=== PATIENT | female | born 1950 | race Caucasian/White ===

== ENCOUNTER 2018-09-27 10:45 | Inpatient (IN) ==
[2018-09-27] MEDS ORDERED: IPRATROPIUM/ALBUTEROL 3 ML AMPUL.NEB NEB ONE (11:07)
[2018-09-27] MEDS: 0.9 % SODIUM CHLORIDE 1,000 ML IV SCH ×3 (11:17→18:59)
[2018-09-27 11:35] LABS: Mean Cell Volume 82.3 fL (80.0-100.0); Mean Corpuscular HGB Conc 30.9 g/dL (31.0-36.0); Platelet Count 241 K/mcL (140-440); Red Cell Distribution Width 17.8 % (11.5-14.5)
--- NOTE | 2018-09-27 11:47 | XRay Report ---
CLINICAL INFORMATION: Hypoxia COMPARISON: 07/09/2018 and 08/18/2012 two view chest FINDINGS: Mild cardiomegaly is unchanged. Mediastinum and pulmonary vessels are normal. A small right lower lobe infiltrate has developed - best seen on lateral view. No definite effusion IMPRESSION: Small right lower lobe infiltrate. Interpreted and Authenticated by: Johnnie Bermudez 09/27/18
[2018-09-27 11:49] LABS: ALT/SGPT 16 U/l (0-40); Albumin 3.2 gm/dL (3.2-5.2); Alkaline Phosphatase 66 U/L (39-117); Blood Urea Nitrogen 26 mg/dl (8-23)
[2018-09-27 12:10] LABS: Anisocytosis 1+ (NONE SEEN); Eosinophils % (Manual) 2 % (0-7); Hypochromasia 1+ (NONE SEEN); Lymphocytes % 28 % (15-49); Monocytes % (Manual) 9 % (1-12); Platelet Estimate NORMAL (NORMAL); RBC Morphology ABNORM (NORMAL); Segmented Neutrophils % 61 % (38-78)
[2018-09-27] MEDS ORDERED: LEVOFLOXACIN 500 MG/100 ML BAG IV ONE (12:12)
--- NOTE | 2018-09-27 12:24 | Emergency Department Note ---
SOB HPI - General Chief Complaint: Shortness of Breath/Dyspnea Stated Complaint: fever, low O2 sats Time Seen by Provider: 09/27/18 10:48 Source: patient, EMS Mode of arrival: EMS Limitations: no limitations - History of Present Illness 68-year-old female presents with shortness of breath, cough, fever, chills since Wednesday night. She is currently residing at [facility] doing rehab after an ankle fracture. The influenza they did there this morning was negative. She became much more short of breath this morning and had oxygen saturations of 69% on room air on EMS arrival. No ear pain or sore throat. No nausea, vomiting, or diarrhea. States it started with a cough and progressed to shortness of breath. - Related Data Home Medications Medication Instructions Recorded Confirmed allopurinol 300 mg tablet 300 mg PO QDAY 03/29/18 07/09/18 blood sugar diagnostic strips See Dose Instructions .ROUTE 03/29/18 03/29/18 .MEDSUPPLY #20 each blood-glucose meter See Dose Instructions .ROUTE 03/29/18 03/29/18 .MEDSUPPLY #1 each albuterol 90 mcg/actuation aerosol 90 mcg INHALATION QDAY PRN 05/09/18 07/09/18 inhaler cholecalciferol (vitamin D3) 1,000 See Rx Instructions .ROUTE .COMPLEX 05/09/18 07/09/18 unit capsule Ergocalciferol (Vitamin D2) 50,000 unit PO WEEKLY 07/09/18 07/09/18 [Vitamin D2] Fosinopril Sodium 20 mg PO DAILY 07/09/18 07/09/18 HYDROcodone/APAP 10/325MG [[place] 1 tab PO Q6H PRN 07/09/18 07/09/18 10-325Mg] Insulin Glargine, Human [Lantus] 20 unit SQ HS 07/09/18 07/09/18 Insulin, 75/25 NPL/Lispro [Humalog 35 unit SQ DAILY 07/09/18 07/09/18 75/25] Insulin, 75/25 NPL/Lispro [Humalog 55 unit SQ DAILY 07/09/18 07/09/18 75/25] Levothyroxine [Synthroid] 100 mcg PO DAILY 07/09/18 07/09/18 Lisinopril [Zestril] 10 mg PO DAILY 07/09/18 07/09/18 Methocarbamol [Robaxin] 500 mg PO Q8 PRN 07/09/18 07/09/18 Mycophenolate Mofetil [Cellcept] 500 mg PO TID 07/09/18 07/09/18 [place]-3/Dha/Epa/Fish Oil [Fish Oil 1 cap PO BID 07/09/18 07/09/18 1,000 mg Softgel] Ondansetron [Zofran ODT] 4 mg SL Q4HP PRN 07/09/18 07/09/18 Polyethylene Glycol 3350 [Miralax] 17 gm PO HS 07/09/18 07/09/18 Warfarin [Coumadin] 3 mg PO DAILY 07/09/18 07/09/18 cycloSPORINE, MODIFIED 75 mg PO Q12 07/09/18 07/09/18 [Cyclosporine Modified] predniSONE [Prednisone] 5 mg PO DAILY 07/09/18 07/09/18 calcium carbonate 500 mg (1,250 1 tab PO BID 09/13/18 09/13/18 mg)-vitamin D3 200 unit tablet multivitamin tablet 1 tab PO QDAY 09/13/18 09/13/18 sennosides 8.6 mg tablet 8.6 mg PO BID 09/13/18 09/13/18 Previous Rx's Medication Instructions Recorded Cephalexin [Keflex] 500 mg PO QID #20 cap 07/09/18 Metoprolol Tartrate [Lopressor] 25 mg PO BID #60 tab 07/09/18 Allergies Allergy/AdvReac Type Severity Reaction Status Date / Time morphine Allergy Unknown Rash Verified 09/27/18 10:49 walnut Allergy Anaphylaxis Verified 09/27/18 10:49 Review of Systems All systems ED: reviewed and negative except as stated. Past Medical History - Past Medical History [facility] Narrative: Medical History (Last Updated 09/13/18 @ 13:59 by Felecia Ford) History of echocardiogram (Chronic) HCC (hepatocellular carcinoma) (Chronic) Morbid (severe) obesity due to excess calories (Chronic) Type 2 diabetes mellitus without complications (Chronic) Closed displaced supracondylar fracture with intracondylar extension of lower end of femur with routine healing (Chronic) End stage renal disease (Chronic) Hypertension, essential (Chronic) Closed displaced trimalleolar fracture of right lower leg with routine healing (Chronic) Hematuria (Chronic) History of shingles (Chronic) Blind (Chronic) Obstructive sleep apnea (Chronic) Right hip pain (Chronic) Venous insufficiency (Chronic) Non-pressure chronic ulcer left lower leg, limited to breakdown skin (Chronic) Lymphedema (Chronic) 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) Mixed hyperlipidemia (Chronic) Hypothyroidism (Chronic) Skin cancer (Chronic) Allergic rhinitis (Chronic) Osteoarthritis (Chronic) Gout (Chronic) Herpes zoster (Chronic) Hypercholesterolemia (Chronic) Hypertension (Chronic) Obesity (Chronic) Hidradenitis suppurativa (Resolved) Past Surgical History (Last Updated 09/13/18 @ 13:50 by Felecia Ford) Status post clamping of cerebral aneurysm (Acute) H/O sigmoidoscopy (Chronic 06/12/18) History of open reduction and internal fixation (ORIF) procedure (Chronic 05/28/18) Kidney transplant recipient (Chronic) S/P PICC central line placement (Chronic 06/02/18) S/P aneurysm repair (Chronic ~1992) Medical history: Reports: atrial fibrillation, CHF, DM, other (Kidney transplant 2, morbid obesity, lymphedema) Surgical history ED: Reports: orthopedic, other, transplant (Knee transplant 2) - Social History smoking status: Never smoker Alcohol use: Reports: None Drug use: Reports: none Physical Exam Limitations: no limitations General appearance: alert, other (Labored breathing speaking 2-3 words at a time) Head: atraumatic, normocephalic, normal inspection Eye: Present: normal appearance. Absent: conjunctival injection ENT: normal exam, normal oropharynx, mucous membranes moist, normal external ear exam Neck: Present: normal inspection, trachea midline. Absent: tenderness, lymphadenopathy Chest: Present: symmetric chest wall rise Respiratory: Present: respiratory distress, wheezes (Expiratory and expiratory wheezes throughout and diminished in the bases bilaterally), accessory muscle use Cardiovascular: Present: regular rate, normal heart sounds Abdominal: Present: other (Morbidly obese) Neurological: Present: alert, oriented X3 Psychiatric: Present: normal affect, normal mood Skin: Present: warm, dry, intact Course Course Narrative: At 1230 I did speak with the hospitalist who agrees to accept this patient. Dr. Lawson. Vital Signs Temperature 102.5 F H 09/27/18 10:45 Pulse Rate 86 09/27/18 10:45 Respiratory Rate 24 H 09/27/18 10:45 Blood Pressure 158/62 09/27/18 10:45 Pulse Oximetry (%) 88 L 09/27/18 10:45 Temperature 102.5 F H 09/27/18 10:45 Pulse Rate 86 09/27/18 10:45 Respiratory Rate 24 H 09/27/18 10:45 Blood Pressure 158/62 09/27/18 10:45 Pulse Oximetry (%) 88 L 09/27/18 10:45 Shortness of Breath/Dyspnea - Lab Data Lab results reviewed: Yes I reviewed the patient's lab results. Result diagrams: 09/27/18 10:58 09/27/18 10:58 Lab Results 09/27/18 09/27/18 09/27/18 Range/Units 10:58 10:58 10:58 WBC 6.2 (4.5-11.0) K/mcL RBC 4.30 (4.00-5.20) M/mcL Hgb 10.9 L (12.0-15.0) g/dL Hct 35.4 L (36.0-48.0) % MCV 82.3 (80.0-100.0) fL MCH 25.4 L (26.0-34.0) pg MCHC 30.9 L (31.0-36.0) g/dL RDW 17.8 H (11.5-14.5) % Plt Count 241 (140-440) K/mcL MPV 8.0 (7.4-10.4) fL Total Counted 100 Seg Neutrophils % 61 (38-78) % Band Neutrophils % Not Reportable Lymphocytes % 28 (15-49) % Monocytes % (Manual) 9 (1-12) % Eosinophils % (Manual) 2 (0-7) % Platelet Estimate Normal (NORMAL) RBC Morphology Abnorm A (NORMAL) Hypochromasia 1+ A (NONE SEEN) Anisocytosis 1+ A (NONE SEEN) VBG Lactic Acid 0.8 (0.5-2.0) mmol/L Sodium 138 (133-145) mmol/L Potassium 4.8 (3.3-5.1) mmol/L Chloride 99 (96-108) mmol/L Carbon Dioxide 26 (22-30) mmol/L Anion Gap 13.0 (8-16) BUN 26 H (8-23) mg/dl Creatinine 1.2 H (0.6-1.1) mg/dl GFR Calculation 46 Glucose 134 H (70-105) mg/dL Calcium 8.7 (8.6-10.4) mg/dl Total Bilirubin 0.6 (0.0-1.0) mg/dL AST 16 (0-37) U/l ALT 16 (0-40) U/l Alkaline Phosphatase 66 (39-117) U/L Total Protein 6.3 (5.9-8.4) gm/dL Albumin 3.2 (3.2-5.2) gm/dL Globulin 3.1 (2.2-3.7) gm/dL Albumin/Globulin Ratio 1.0 (1.0-2.3) Procalcitonin (<0.10) ng/mL 09/27/18 Range/Units 10:58 WBC (4.5-11.0) K/mcL RBC (4.00-5.20) M/mcL Hgb (12.0-15.0) g/dL Hct (36.0-48.0) % MCV (80.0-100.0) fL MCH (26.0-34.0) pg MCHC (31.0-36.0) g/dL RDW (11.5-14.5) % Plt Count (140-440) K/mcL MPV (7.4-10.4) fL Total Counted Seg Neutrophils % (38-78) % Band Neutrophils % Lymphocytes % (15-49) % Monocytes % (Manual) (1-12) % Eosinophils % (Manual) (0-7) % Platelet Estimate (NORMAL) RBC Morphology (NORMAL) Hypochromasia (NONE SEEN) Anisocytosis (NONE SEEN) VBG Lactic Acid (0.5-2.0) mmol/L Sodium (133-145) mmol/L Potassium (3.3-5.1) mmol/L Chloride (96-108) mmol/L Carbon Dioxide (22-30) mmol/L Anion Gap (8-16) BUN (8-23) mg/dl Creatinine (0.6-1.1) mg/dl GFR Calculation Glucose (70-105) mg/dL Calcium (8.6-10.4) mg/dl Total Bilirubin (0.0-1.0) mg/dL AST (0-37) U/l ALT (0-40) U/l Alkaline Phosphatase (39-117) U/L Total Protein (5.9-8.4) gm/dL Albumin (3.2-5.2) gm/dL Globulin (2.2-3.7) gm/dL Albumin/Globulin Ratio (1.0-2.3) Procalcitonin < 0.10 (<0.10) ng/mL - Radiology Data Radiology results reviewed: Yes I reviewed the patient's radiology results. Disposition Pt seen by CLIENT PORTFOLIO MANAGER/PA only: No Clinical Impression: Pneumonia, Hypoxia, Hypotension, SOB (shortness of breath) Disposition: Xfer As Inpt ([facility]) Condition: Fair Referrals: Danay Andersen MD [Primary Care Provider] - Time of Disposition: 12:32
[2018-09-27] MEDS ORDERED: PIPERACILLIN SODIUM/TAZOBACTAM 3.375 GM in DEXTROSE 5% IN WATER 50 ML IV ONE (12:26)
--- NOTE | 2018-09-27 12:46 | Internal Med History&Physical ---
Medical - H&P: HPI Patient information: Note initiated : 09/27/18 at 12:41 pm Service Date, if different from initiated Date: [] Patient: Marialuisa Champagne a 68 y/o F admitted on for Fever, Low O2 Sats. Chief Complaint: [] Chief complaint: sob, fever History of present illness: Ms. Champagne is a 68 year old F with a history of renal transplant on immunosuppressives. Is currently recovering after right ankle and femur fracture end of May and currently at [facility]. Over the last few days patient has noted increasing weakness, productive sputum and shortness of breath. She tried to work with the symptoms over the weekend however however did not get any better. This morning she developed high-grade fever and became lethargic, unable to breathe and subsequently was transferred to [facility] ER for further evaluation. On presentation her sats were mid 60s on room air. Initial workup was consistent with right lower lobe pneumonia. Patient was started on antibiotic coverage along with supplemental oxygen Hospitalist service is consulted for admission in light of above At the time of evaluation patient is alert oriented. She appears moderately short of breath. She is accompanied by her . She is able to answer most questions. Post surgery she has been recovering well and has been able to bear weight using boot on the right side. She denies associated nausea vomiting chest painpalpitation. She denies arthralgia myalgia but endorses to sweats and chills. 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) Mixed hyperlipidemia (Chronic) Hypothyroidism (Chronic) Skin cancer (Chronic) Allergic rhinitis (Chronic) Osteoarthritis (Chronic) Gout (Chronic) Herpes zoster (Chronic) Hypercholesterolemia (Chronic) Hypertension (Chronic) Obesity (Chronic) Hidradenitis suppurativa (Resolved) Surgical History Status post clamping of cerebral aneurysm (Acute) Kidney transplant recipient (Chronic ~1992) S/P aneurysm repair (Chronic ~1992) Family History Father Heart disease Myocardial infarction Mother Hx of CABG Social History occupational status: 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 [employer] smoking status: Never smoker alcohol intake frequency: holiday/special occasion only Medical - H&P: Meds Home Medications Medication Instructions Recorded Confirmed Type allopurinol 300 mg tablet 300 mg PO QDAY 03/29/18 09/27/18 History albuterol 90 mcg/actuation aerosol 90 mcg INHALATION QDAY PRN 05/09/18 09/27/18 History inhaler Ergocalciferol (Vitamin D2) 50,000 unit PO WEEKLY 07/09/18 09/27/18 History [Vitamin D2] HYDROcodone/APAP 10/325MG [[place] 1 - 2 tab PO Q4H PRN 07/09/18 09/27/18 History 10-325Mg] Insulin Glargine, Human [Lantus] 20 unit SQ HS 07/09/18 09/27/18 History Levothyroxine [Synthroid] 100 mcg PO DAILY 07/09/18 09/27/18 History Lisinopril [Zestril] 10 mg PO DAILY 07/09/18 09/27/18 History Methocarbamol [Robaxin] 500 mg PO Q8 PRN 07/09/18 09/27/18 History Metoprolol Tartrate [Lopressor] 25 mg PO BID #60 tab 07/09/18 09/27/18 Rx Mycophenolate Mofetil [Cellcept] 500 mg PO TID 07/09/18 09/27/18 History Ondansetron [Zofran ODT] 4 mg SL Q6HP PRN 07/09/18 09/27/18 History Polyethylene Glycol 3350 [Miralax] 17 gm PO HS 07/09/18 09/27/18 History Warfarin [Coumadin] 2 mg PO DAILY 07/09/18 09/27/18 History cycloSPORINE, MODIFIED 75 mg PO Q12 07/09/18 09/27/18 History [Cyclosporine Modified] predniSONE [Prednisone] 5 mg PO DAILY 07/09/18 09/27/18 History calcium carbonate 500 mg (1,250 1 tab PO BID 09/13/18 09/27/18 History mg)-vitamin D3 200 unit tablet multivitamin tablet 1 tab PO QDAY 09/13/18 09/27/18 History sennosides 8.6 mg tablet 8.6 mg PO BID 09/13/18 09/27/18 History Dulcolax 10 mg [place] DAILY PRN 09/27/18 09/27/18 History Insulin Lispro [Humalog] See Protocol 09/27/18 History Ipratropium/Albuterol [Duoneb] 0.5 - 3 mg INH Q6HP PRN 09/27/18 09/27/18 History Milk of Magnesia 30 ml PO DAILY PRN 09/27/18 09/27/18 History Na Phos,M-B/Na Phos,Di-Ba [Fleets 1 dose [place] DAILY PRN 09/27/18 09/27/18 History Adult] Allergies Allergy/AdvReac Type Severity Reaction Status Date / Time walnut Allergy Severe Anaphylaxis Verified 09/27/18 14:20 morphine Allergy Mild Rash Verified 09/27/18 14:20 Medical - H&P: Exam - Constitutional Vitals: Temp Pulse Resp BP Pulse Ox 102.5 F H 86 24 H 158/62 88 L 09/27/18 10:45 09/27/18 10:45 09/27/18 10:45 09/27/18 10:45 09/27/18 10:45 General appearance: morbidly obese Exam: Alert oriented IV movements symmetrical Oral cavity dry No ear nose discharge Head normocephalic Neck no lymphadenopathy S1 and S2 regular rhythm Diminished breath sounds bases Pendulous abdomen Lower extremity stasis changes, right lower extremity orthotic boot Skin no suspicious lesion Psych alert cooperative neuro nonfocal Medical - H&P: Reslt - Labs CBC & Chem 7: 09/28/18 03:44 09/28/18 03:44 Labs: Short CBC 09/27/18 Range/Units 10:58 WBC 6.2 (4.5-11.0) K/mcL Hgb 10.9 L (12.0-15.0) g/dL Hct 35.4 L (36.0-48.0) % Plt Count 241 (140-440) K/mcL BMP 09/27/18 10:58 Sodium 138 Potassium 4.8 Chloride 99 Carbon Dioxide 26 BUN 26 H Creatinine 1.2 H Glucose 134 H Calcium 8.7 Liver Function 09/27/18 Range/Units 10:58 Total Bilirubin 0.6 (0.0-1.0) mg/dL AST 16 (0-37) U/l ALT 16 (0-40) U/l Alkaline Phosphatase 66 (39-117) U/L Albumin 3.2 (3.2-5.2) gm/dL Medical - H&P: A/P (1) Right lower lobe pneumonia Current visit: Yes Status: Acute * Right lower lobe pneumonia-community acquired versus aspiration. Antibiotic coverage/aspiration precaution/ST eval. * Hypoxic respiratory failure secondary to above-supplemental oxygen/pulmonary toilet/aspiration precautions * Insulin-dependent diabetes-continue basal prandial insulin * Morbid obesity. Not on CPAP * Recent trimalleolar ankle/distal femur fracture(05/28-06/23/18) undergoing rehabilitation at SNF. 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 Nephrology consult * H/o DVT- On coumadin. Plan * Inpatient admission in light of pneumonia severity index greater than 100 * Community acquired pneumonia pathogen coverage * Aspiration precaution/supplemental oxygen * Pre-existing medical condition management as above * Nephrology consult for management of transplant medications * Coumadin dosing based on INR
[2018-09-27] MEDS ORDERED: DEXTROSE 5% IN WATER 50 ML IV ONE (13:51)
[2018-09-27] MEDS ORDERED: DEXTROSE 31 GM ORAL.SUSP PO PRN (14:10)
[2018-09-27] MEDS ORDERED: DEXTROSE 50% 50 ML VIAL IV PRN (14:10)
[2018-09-27] MEDS ORDERED: traZODone HCL 50 MG TABLET PO PRN (14:10)
[2018-09-27] MEDS ORDERED: MAGNESIUM SULFATE 2 GM/50 ML BAG IV PRN (14:10)
[2018-09-27] MEDS ORDERED: POTASSIUM CHLORIDE 20 MEQ PACKET PO PRN (14:10)
[2018-09-27] MEDS ORDERED: ACETAMINOPHEN 325 MG TABLET PO PRN (14:10)
[2018-09-27] MEDS: 0.9 % SODIUM CHLORIDE 10 ML SYRINGE IV SCH ×2 (14:37→20:28)
[2018-09-27] MEDS: BUDESONIDE 0.5 MG/2 ML AMPUL.NEB NEB SCH ×2 (14:41→19:01)
[2018-09-27] MEDS: IPRATROPIUM/ALBUTEROL 3 ML AMPUL.NEB NEB SCH ×3 (15:01→23:03)
[2018-09-27] MEDS: PIPERACILLIN SODIUM/TAZOBACTAM 3.375 GM in DEXTROSE 5% IN WATER 50 ML IV SCH ×4 (15:27→23:56)
[2018-09-27] MEDS ORDERED: FLEETS ADULT ENEMA PR PRN (16:12)
[2018-09-27] MEDS ORDERED: METHOCARBAMOL 500 MG TABLET PO PRN (16:12)
[2018-09-27] MEDS ORDERED: IPRATROPIUM/ALBUTEROL 3 ML AMPUL.NEB NEB PRN (16:12)
[2018-09-27] MEDS ORDERED: MAGNESIUM HYDROXIDE 30 ML ORAL.SUSP PO PRN (16:20)
[2018-09-27] MEDS ORDERED: ALBUTEROL SULFATE 1 PUFF INHALER INH PRN (16:20)
[2018-09-27] MEDS ORDERED: BISACODYL 10 MG SUPP.RECT PR PRN (16:30)
[2018-09-27] MEDS: INSULIN LISPRO 1 UNIT/0.01 ML UNIT SQ SCH ×2 (17:03→20:32)
[2018-09-27] MEDS: SENNOSIDES/DOCUSATE SODIUM 1 TAB TABLET PO SCH (20:20)
[2018-09-27] MEDS: POLYETHYLENE GLYCOL 3350 17 GM PACKET PO SCH (20:20)
[2018-09-27] MEDS: SENNOSIDES 1 TABLET PO SCH (20:20)
[2018-09-27] MEDS: DOCUSATE SODIUM 100 MG CAPSULE PO SCH (20:20)
[2018-09-27] MEDS: CALCIUM W/VIT D3 500 MG TABLET PO SCH (20:29)
[2018-09-27] MEDS: MYCOPHENOLATE 250 MG CAPSULE PO SCH (20:29)
[2018-09-27] MEDS: METOPROLOL TARTRATE 25 MG TABLET PO SCH (20:30)
[2018-09-27] MEDS: HEPARIN 5,000 UNIT/ML VIAL SQ SCH (20:30)
[2018-09-27] MEDS: HYDROcodone/APAP 10/325MG TABLET PO PRN (20:30)
[2018-09-27] MEDS: INSULIN GLARGINE, HUMAN 1 UNIT/0.01 ML SQ SCH (20:31)
[2018-09-27] MEDS: ONDANSETRON 4 MG/2 ML VIAL IV PRN (22:46)
[2018-09-28] MEDS: IPRATROPIUM/ALBUTEROL 3 ML AMPUL.NEB NEB SCH ×6 (04:20→23:10)
[2018-09-28] MEDS: PIPERACILLIN SODIUM/TAZOBACTAM 3.375 GM in DEXTROSE 5% IN WATER 50 ML IV SCH ×3 (05:40→18:01)
[2018-09-28] MEDS: 0.9 % SODIUM CHLORIDE 10 ML SYRINGE IV SCH ×3 (05:40→20:56)
[2018-09-28 06:22] LABS: Mean Cell Volume 83.3 fL (80.0-100.0); Mean Corpuscular HGB Conc 30.6 g/dL (31.0-36.0); Platelet Count 241 K/mcL (140-440); RBC 4.08 M/mcL (4.00-5.20)
[2018-09-28 06:46] LABS: ALT/SGPT 14 U/l (0-40); Albumin 2.8 gm/dL (3.2-5.2); Albumin/Globulin Ratio 0.9 (1.0-2.3); Alkaline Phosphatase 60 U/L (39-117); Bilirubin,Direct 0.3 mg/dL (0.0-0.3); Blood Urea Nitrogen 32 mg/dl (8-23); Gamma Glutamyl Transpeptidase 24 U/L (5-36); Uric Acid 5.3 mg/dL (2.5-8.0)
[2018-09-28] MEDS: MYCOPHENOLATE 250 MG CAPSULE PO SCH ×2 (06:59→15:11)
[2018-09-28] MEDS: predniSONE 5 MG TABLET PO SCH (07:04)
[2018-09-28] MEDS: ONDANSETRON 4 MG/2 ML VIAL IV PRN ×3 (07:10→21:44)
[2018-09-28] MEDS: BUDESONIDE 0.5 MG/2 ML AMPUL.NEB NEB SCH ×2 (07:30→23:11)
[2018-09-28 08:14] LABS: Anisocytosis 1+ (NONE SEEN); Band Neutrophils % 9 % (0-10); Hypochromasia 1+ (NONE SEEN); Lymphocytes % 35 % (15-49); Monocytes % (Manual) 7 % (1-12); Platelet Estimate NORMAL (NORMAL); RBC Morphology ABNORM (NORMAL); Segmented Neutrophils % 49 % (38-78)
[2018-09-28] MEDS: LEVOTHYROXINE 100 MCG TABLET PO SCH (08:20)
[2018-09-28] MEDS: ACETAMINOPHEN 1,000 MG/100 ML BOTTLE IV PRN (08:21)
[2018-09-28] MEDS: INSULIN LISPRO 1 UNIT/0.01 ML UNIT SQ SCH ×4 (08:33→21:01)
--- NOTE | 2018-09-28 08:33 | Emergency Department Note ---
ED Note Addendum Note Addendum: I reviewed this case of Marley Barker RENETTA. I agree with her evaluation management and documentation. We discussed this case and I agree with the decision to admit
[2018-09-28] MEDS ORDERED: WARFARIN 1 MG TABLET PO SCH (09:00)
[2018-09-28] MEDS ORDERED: ERGOCALCIFEROL (VITAMIN D2) 50,000 UNIT CAPSULE PO SCH (09:00)
[2018-09-28] MEDS: ONDANSETRON 4 MG ODT TABLET SL PRN (09:29)
[2018-09-28] MEDS: METOPROLOL TARTRATE 25 MG TABLET PO SCH ×2 (09:40→20:54)
[2018-09-28] MEDS: ALLOPURINOL 300 MG TABLET PO SCH (10:00)
[2018-09-28] MEDS: MUPIROCIN OINT 2% 22GM TOPICAL SCH ×2 (10:20→20:54)
--- NOTE | 2018-09-28 10:54 | Internal Med Progress Note ---
Medical - PN: Subj Patient information: Note initiated : 09/28/18 at 10:50 am Service Date, if different from initiated Date: [] Patient: Marialuisa Champagne a 68 y/o F admitted on 09/27/18 for Fever, Low O2 Sats. Chief Complaint: [] Interval history: Ms. Champagne is a 68 year old F with a history of renal transplant on immunosuppressives. Is currently recovering after right ankle and femur fracture end of May and currently at [facility]. Over the last few days patient has noted increasing weakness, productive sputum and shortness of breath. She tried to work with the symptoms over the weekend however however did not get any better. This morning she developed high-grade fever and became lethargic, unable to breathe and subsequently was transferred to [facility] ER for further evaluation. On presentation her sats were mid 60s on room air. Initial workup was consistent with right lower lobe pneumonia. Patient was started on antibiotic coverage along with supplemental oxygen Hospitalist service is consulted for admission in light of above At the time of evaluation patient is alert oriented. She appears moderately short of breath. She is accompanied by her . She is able to answer most questions. Post surgery she has been recovering well and has been able to bear weight using boot on the right side. She denies associated nausea vomiting chest painpalpitation. She denies arthralgia myalgia but endorses to sweats and chills. 09/28-patient remains lethargic and febrile. White count 8.2. Creatinine 1.6. Nephrology consulted for management of renal transplant medications/SHERRY. INR 3.2. Coumadin dosing based on INR. No overnight major events. - Constitutional Vitals: Vital Signs Temp Pulse Resp BP Pulse Ox 102 F H 99 H 20 107/50 95 09/28/18 07:17 09/28/18 07:49 09/28/18 07:49 09/28/18 07:17 09/28/18 07:49 Period Temp Pulse Resp BP Sys/Howe Pulse Ox Last 24 Hr 98.0 F-102.5 F 82-99 18-27 93-147/41-71 93-99 Intake and Output 09/27/18 09/28/18 09/28/18 21:59 05:59 13:59 Intake Total 280 230 360 Output Total 226 1 Balance 54 230 359 Weight 353 lb Intake & Output: Intake & Output 09/27/18 09/28/18 09/28/18 21:59 05:59 13:59 Intake Total 280 230 360 Output Total 226 1 Balance 54 230 359 Weight 353 lb Intake: IV 50 50 Zosyn 3.375 gm In Dextrose 5% 50 50 in Water 50 ml @ 100 mls/hr IV Q6H [facility] Rx#:[id number] Oral 230 180 360 Output: # of times incontinent of urine 1 1 Urine/Stool Mix 225 Other: Meal Dinner Percent of Meal Consumed 25% Feeding Ability Assist with Tray Set Up Stool Size Moderate Stool Color Brown Brown Yellow Yellow Pale Stool Consistency Liquid Liquid Watery # Voids 1 # Bowel Movements 1 # of times incontinent of 1 2 Bowels General appearance: morbidly obese Exam: Fatigued and lethargic Nonlabored breathing Pendulous abdomen Medical - PN: Obj Da - Labs CBC & Chem 7: 09/28/18 03:44 09/28/18 03:44 Labs: Abnormal Lab Results 09/28/18 09/28/18 09/28/18 03:44 03:44 03:44 Hgb 10.4 L Hct 34.0 L MCH 25.5 L MCHC 30.6 L RDW 18.0 H RBC Morphology Abnorm A Hypochromasia 1+ A Anisocytosis 1+ A PT 32.0 H INR 3.2 H BUN 32 H Creatinine 1.6 H Glucose 108 H Calcium 8.4 L Phosphorus 4.7 H Magnesium 1.4 L C-Reactive Protein Albumin 2.8 L Albumin/Globulin Ratio 0.9 L Triglycerides 231 H 09/27/18 09/27/18 09/27/18 14:10 10:58 10:58 Hgb Hct MCH MCHC RDW RBC Morphology Hypochromasia Anisocytosis PT 31.1 H INR 3.0 H BUN 26 H Creatinine 1.2 H Glucose 134 H Calcium Phosphorus Magnesium C-Reactive Protein 4.9 H Albumin Albumin/Globulin Ratio Triglycerides 09/27/18 10:58 Hgb 10.9 L Hct 35.4 L MCH 25.4 L MCHC 30.9 L RDW 17.8 H RBC Morphology Abnorm A Hypochromasia 1+ A Anisocytosis 1+ A PT INR BUN Creatinine Glucose Calcium Phosphorus Magnesium C-Reactive Protein Albumin Albumin/Globulin Ratio Triglycerides Meds: Medications Acetaminophen (Tylenol) 650 mg PO Q4-6HP PRN PRN Reason: PAIN/FEVER > 101 Hydrocodone Bitart/Acetaminophen ([place] 10/325mg) 1 - 2 tab PO Q4HP PRN PRN Reason: Pain Last Admin: 09/27/18 20:30 Dose: 2 tab Documented by: Albuterol Sulfate (Ventolin) 1 puff INH Q4HP PRN PRN Reason: Shortness Of Breath Albuterol/Ipratropium (Duoneb) 3 ml NEB Q4HRT [facility] Last Admin: 09/28/18 07:29 Dose: Not Given Documented by: Albuterol/Ipratropium (Duoneb) 3 ml NEB Q6HP PRN PRN Reason: Shortness Of Breath Allopurinol (Zylopriim) 300 mg PO QDAY [facility] Bisacodyl (Dulcolax) 10 mg MT DAILYP PRN PRN Reason: Constipation Budesonide (Pulmicort) 0.5 mg NEB Q12 [facility] Last Admin: 09/27/18 19:01 Dose: 0.5 mg Documented by: Calcium/Vitamin D (Calcium W/Vit D3) 500 mg PO BID [facility] Last Admin: 09/27/18 20:29 Dose: 500 mg Documented by: Cyclosporine (Sandimmune) 75 mg PO BID [facility] Last Admin: 09/27/18 20:28 Dose: 75 mg Documented by: Dextrose (Dextrose 50%) 0 ml IV UD PRN PRN Reason: Hypoglycemia Diagnostic Test (Pha) (Accu-Chek) 1 each FS ACHS [facility] Last Admin: 09/28/18 07:01 Dose: 1 each Documented by: Docusate Sodium (Colace) 100 mg PO BID [facility] Last Admin: 09/27/18 20:20 Dose: Not Given Documented by: Ergocalciferol (Drisdol) 50,000 unit PO We@0900 [facility] Glucose (Insta-Glucose) 15 gm PO PRN PRN PRN Reason: Hypoglycemia Magnesium Sulfate (Magnesium Sulfate) 2 gm in 50 mls @ 50 mls/hr IV UD PRN PRN Reason: MG = or < 1.7 Last Admin: 09/28/18 08:20 Dose: 50 mls/hr Documented by: Sodium Chloride (Sodium Chloride 0.9%) 1,000 mls @ 50 mls/hr IV .Q20H [facility] Stop: 09/30/18 02:09 Last Admin: 09/27/18 14:37 Dose: 50 mls/hr Documented by: Acetaminophen (Ofirmev) 1,000 mg in 100 mls @ 200 mls/hr IV Q6HP PRN PRN Reason: PAIN/FEVER > 101 Last Admin: 09/28/18 08:21 Dose: 200 mls/hr Documented by: Piperacillin Sod/Tazobactam (Sod 3.375 gm/ Dextrose) 50 mls @ 100 mls/hr IV Q6H [facility] Last Admin: 09/28/18 05:40 Dose: 100 mls/hr Documented by: Insulin Glargine (Lantus) 20 unit SQ [facility] Last Admin: 09/27/18 20:31 Dose: 20 unit Documented by: Insulin Human Lispro (Humalog) 0 unit SQ [facility]; Protocol Last Admin: 09/28/18 08:33 Dose: Not Given Documented by: Iron Carb/Multivit/[place]/Folic Acid (Multivitamin W/Minerals) 1 tab PO DAILY [facility] Levothyroxine Sodium (Synthroid) 100 mcg PO QAMAC [facility] Last Admin: 09/28/18 08:20 Dose: 100 mcg Documented by: Magnesium Hydroxide (Milk Of Magnesia) 30 ml PO DAILYP PRN PRN Reason: Constipation Methocarbamol (Robaxin) 500 mg PO Q8HP PRN PRN Reason: Muscle Spasm Metoprolol Tartrate (Lopressor) 25 mg PO BID [facility] Last Admin: 09/27/18 20:30 Dose: 25 mg Documented by: Mupirocin (Bactroban Oint 2%) 1 dose TOPICAL BID [facility] Mycophenolate Mofetil (Cellcept) 500 mg PO TID@0700,1400,2000 [facility] Last Admin: 09/28/18 06:59 Dose: 500 mg Documented by: Ondansetron HCl (Zofran) 4 mg IV Q4-6HP PRN PRN Reason: Nausea And Vomiting Last Admin: 09/28/18 07:10 Dose: 4 mg Documented by: Ondansetron HCl (Zofran Odt) 4 mg SL Q6HP PRN PRN Reason: Nausea Last Admin: 09/28/18 09:29 Dose: 4 mg Documented by: Polyethylene Glycol (Miralax) 17 gm PO [facility] Last Admin: 09/27/18 20:20 Dose: Not Given Documented by: Potassium Chloride (Klor-Con) 40 meq PO DAILYP PRN PRN Reason: K+ < 3.5 Prednisone (Prednisone) [address] [facility] Last Admin: 09/28/18 07:04 Dose: 5 mg Documented by: Senna (Senokot) 1 tab PO BID [facility] Last Admin: 09/27/18 20:20 Dose: Not Given Documented by: Senna/Docusate Sodium (Senna Plus Tablet) 1 tab PO HS [facility] Last Admin: 09/27/18 20:20 Dose: Not Given Documented by: Sitagliptin Phosphate (Januvia) 100 mg PO DAILY [facility] Sodium Biphosphate/Sodium Phosphate (Fleets Adult) 1 dose MT DAILYP PRN PRN Reason: Constipation Sodium Chloride (Saline Flush) 10 ml IV Q8 [facility] Last Admin: 09/28/18 05:40 Dose: 10 ml Documented by: Trazodone HCl (Desyrel) 50 mg PO HSP PRN PRN Reason: Insomnia Warfarin Sodium (Coumadin Per Pharmacy) 1 order PO UD [facility] Medical - PN: A/P - Time Spent With Patient Total time spent is greater than 50% in coordination of care (as documented) at patient's floor/unit and/or counseling patient: 25 - 35 minutes (1) Right lower lobe pneumonia Status: Acute Assessment and plan: * Right lower lobe pneumonia-community acquired versus aspiration. Continue antibiotic coverage/aspiration precaution/ST eval. * Hypoxic respiratory failure secondary to above-continue supplemental oxygen/pulmonary toilet/aspiration precautions * Insulin-dependent diabetes-continue basal prandial insulin. Blood sugars at goal * Recent trimalleolar ankle/distal femur fracture(05/28-06/23/18) undergoing rehabilitation at [facility]. Continue PT OT and weightbearing recommendation as per orthopedics * History of hypertension continue home medication including VIRY inhibitor/beta petrona * History of gout continue allopurinol * Hypothyroidism continue thyroxine * Status post renal transplant. Creatinine bumped to 1.6. Nephrology consulted. On CellCept/cyclosporine/prednisone. * H/o DVT- On coumadin. INR 3.2 * Morbid obesity. Not on CPAP Plan * Continue antibiotic coverage * Community acquired pneumonia pathogen coverage, de-escalate based on cultures * Aspiration precaution/supplemental oxygen * Coumadin dosing based on INR * Prior medical condition management on home meds Current Visit: Yes Medical - PN: Qual - VTE Deep Vein Thrombosis/Pulmonary Embolism Present on Admission: No
[2018-09-28] MEDS: sitaGLIPtin 100 MG TABLET PO SCH (11:00)
[2018-09-28] MEDS: CALCIUM W/VIT D3 500 MG TABLET PO SCH ×2 (11:43→20:54)
[2018-09-28] MEDS: DOCUSATE SODIUM 100 MG CAPSULE PO SCH ×2 (11:44→20:55)
[2018-09-28] MEDS: 0.9 % SODIUM CHLORIDE 1,000 ML IV SCH (11:54)
[2018-09-28] MEDS: HEPARIN 5,000 UNIT/ML VIAL SQ SCH (12:13)
[2018-09-28] MEDS: SENNOSIDES 1 TABLET PO SCH ×2 (12:17→20:56)
[2018-09-28] MEDS: MULTIVIT,THER IRON,CA,FA & MIN 1 TABLET PO SCH (12:19)
[2018-09-28] MEDS ORDERED: VANCOMYCIN PER PHARMACY IV SCH (12:34)
[2018-09-28] MEDS: VANCOMYCIN 2,000 MG in 0.9 % SODIUM CHLORIDE 500 ML IV SCH (13:33)
[2018-09-28] MEDS ORDERED: 0.9 % SODIUM CHLORIDE 1,000 ML IV ONE (14:06)
[2018-09-28 14:48] LABS: Appearance,Urine CLOUDY; Bacteria,Urine 0 /hpf (0); Bilirubin,Urine NEG (NEG); Color,Urine YELLOW; Glucose,Urine (UA) NORM (NEG); Leukocyte Esterase,Urine NEG /uL (NEG); Protein,Urine 100 (2+) mg/dL (NEG); Specific Gravity,Urine 1.025 (1.003-1.030); Urine Blood 1+ (SMALL) mg/dL (<0.03); Urine RBC > 182 /hpf (0-1); Urine Squamous Epithelial Cell 4 /hpf (0-4); Urine WBC 16 /hpf (0-4)
[2018-09-28] MEDS: NOREPINEPHRINE BITARTRATE 16 MG in 0.9 % SODIUM CHLORIDE 234 ML IV SCH (15:06)
[2018-09-28] MEDS: 0.9 % SODIUM CHLORIDE 250 ML IV SCH (15:08)
--- NOTE | 2018-09-28 16:34 | Nephrology Consult Note ---
History of Present Illness - Reason for Consult Patient information: Note initiated : 09/28/18 at 4:31 pm Service Date, if different from initiated Date: [] Patient: Marialuisa Champagne 68 y/o F admitted on 09/27/18 for Fever, Low O2 Sats. Chief Complaint: [] Consult date: 09/28/18 acute renal failure (h/o renal transplant ) Requesting physician: Bert Reynoso - Chief Complaint SOB - History of Present Illness Patient is a 68 y/o pleasant white female with PMH of HTN, ESRD s/p cadaveric renal transplant in 1992, ADPKD and other medical issues who is admitted with possible PNA Patient states she has been sick since last Wednesday with symptoms of cough, fever with chills and SOB, she states her symptoms got worse since yesterday and she has had difficulty staying awake and more SOB and hence she was brought to ER, work up done showed CXR with small infiltrate in right lung and she is hospitalised for hypoxia, PNA and sepsis She c/o poor oral intake no diarrhea, nausea, vomiting no h/o NSAIDS used no other pertinent history Nephrology is consulted given h/o renal transplant and SHERRY She is been treated with zosyn blood culture this afternoon positive for gram positive cocci, vanc was added and patient had hypotension for which she has received IVF bolus and levophed Review of Systems All systems PM: reviewed and no additional remarkable complaints except as stated (as in HPI) Past History Past medical history: History of shingles (Chronic) Blind (Chronic) Obstructive sleep apnea (Chronic) Right hip pain (Chronic) Venous insufficiency (Chronic) Non-pressure chronic ulcer left lower leg, limited to breakdown skin (Chronic) Lymphedema (Chronic) 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) Mixed hyperlipidemia (Chronic) Hypothyroidism (Chronic) Skin cancer (Chronic) Allergic rhinitis (Chronic) Osteoarthritis (Chronic) Gout (Chronic) Herpes zoster (Chronic) Hypercholesterolemia (Chronic) Hypertension (Chronic) Obesity (Chronic) Hidradenitis suppurativa (Resolved) ESRD s/p renal transplant Past surgical history: h/o ADPKD s/p renal tarsnplant x 2, last one in 1992 h/o intra cerebral aneurysm repair in 1992 h/o femur and ankle fracture and fixation of this Past family history: noted, not pertinent to this hospital stay Past social history: lives in SNF currently given recent history of fracture, not able to walk, doing PT no current addictions Medications and Allergies Home Medications Medication Instructions Recorded Confirmed Type allopurinol 300 mg tablet 300 mg PO QDAY 03/29/18 09/27/18 History albuterol 90 mcg/actuation aerosol 90 mcg INHALATION QDAY PRN 05/09/18 09/27/18 History inhaler Ergocalciferol (Vitamin D2) 50,000 unit PO WEEKLY 07/09/18 09/27/18 History [Vitamin D2] HYDROcodone/APAP 10/325MG [[place] 1 - 2 tab PO Q4H PRN 07/09/18 09/27/18 History 10-325Mg] Insulin Glargine, Human [Lantus] 20 unit SQ HS 07/09/18 09/27/18 History Levothyroxine [Synthroid] 100 mcg PO DAILY 07/09/18 09/27/18 History Lisinopril [Zestril] 10 mg PO DAILY 07/09/18 09/27/18 History Methocarbamol [Robaxin] 500 mg PO Q8 PRN 07/09/18 09/27/18 History Metoprolol Tartrate [Lopressor] 25 mg PO BID #60 tab 07/09/18 09/27/18 Rx Mycophenolate Mofetil [Cellcept] 500 mg PO TID 07/09/18 09/27/18 History Ondansetron [Zofran ODT] 4 mg SL Q6HP PRN 07/09/18 09/27/18 History Polyethylene Glycol 3350 [Miralax] 17 gm PO HS 07/09/18 09/27/18 History Warfarin [Coumadin] 2 mg PO DAILY 07/09/18 09/27/18 History cycloSPORINE, MODIFIED 75 mg PO Q12 07/09/18 09/27/18 History [Cyclosporine Modified] predniSONE [Prednisone] 5 mg PO DAILY 07/09/18 09/27/18 History calcium carbonate 500 mg (1,250 1 tab PO BID 09/13/18 09/27/18 History mg)-vitamin D3 200 unit tablet multivitamin tablet 1 tab PO QDAY 09/13/18 09/27/18 History sennosides 8.6 mg tablet 8.6 mg PO BID 09/13/18 09/27/18 History Dulcolax 10 mg CA DAILY PRN 09/27/18 09/27/18 History Insulin Lispro [Humalog] See Protocol 09/27/18 History Ipratropium/Albuterol [Duoneb] 0.5 - 3 mg INH Q6HP PRN 09/27/18 09/27/18 History Milk of Magnesia 30 ml PO DAILY PRN 09/27/18 09/27/18 History Na Phos,M-B/Na Phos,Di-Ba [Fleets 1 dose [place] DAILY PRN 09/27/18 09/27/18 History Adult] Allergies Allergy/AdvReac Type Severity Reaction Status Date / Time wal[place] Allergy Severe Anaphylaxis Verified 09/27/18 14:20 morphine Allergy Mild Rash Verified 09/27/18 14:20 Exam - Vital Signs Vital signs: Temp Pulse Resp BP Pulse Ox 99.8 F H 99 H 22 95/53 94 09/28/18 13:13 09/28/18 11:42 09/28/18 12:00 09/28/18 16:00 09/28/18 12:00 - General Appearance General appearance: appears started age, obese (morbid) EENT: mucous membranes moist Neck: no JVD Respiratory: rales Cardiology: no rub, no edema, regular rate, regular rhythm Gastrointestinal: no tenderness, no guarding Integumentary: warm and dry Neurologic: alert and oriented x3 Musculoskeletal: no cyanosis, no clubbing Psychiatric: mood/affect appropriate Results - Lab Results 09/28/18 03:44 09/28/18 03:44 Most recent lab results Calcium 8.4 mg/dl (8.6-10.4) L 09/28/18 03:44 Phosphorus 4.7 mg/dL (2.7-4.5) H 09/28/18 03:44 Magnesium 1.4 mg/dL (1.6-2.5) L 09/28/18 03:44 Assessment and Plan (1) Right lower lobe pneumonia Status: Acute - Narrative A/P Narrative: s/p cadaveric renal transplant in 1992 baseline s.creatinine is 1.1, s.creatinine this hospital stay is 1.2-1.6 UA with RBC/wbc/protein FENA is 0.2% SHERRY likely from sepsis causing ATN given septic shock and bacteremia will hold cyclosporine and cellcept, willr esume once infection resolves will continue with prednisone, if BP does not improve with IVF/pressors please start stress dose of steroids she has received fluid resuscitation which should improve pre renal state continue pressors to keep MAP more than 65mmHg please dose meds to egfr avoid nephrotoxic medications PNA/sepsis and other medical issues managed by hospitalist will follow along Thank you for giving me an opportunity to participate in ms Mason's medical care, appreciate it
--- NOTE | 2018-09-28 18:49 | Ultrasound Report ---
CLINICAL INFORMATION: acute renal failure. Left iliac fossa transplant COMPARISON: None. FINDINGS: Renal transplant in the left iliac fossa spans 13.5 x 6 cm. Echotexture is mildly elevated. No focal renal lesions. The external iliac and transplanted renal artery are widely patent. Renal vein is also patent with normal flow. Resistive indices are elevated ranging 0.86 throughout the renal parenchyma IMPRESSION: Mild elevation of transplant echotexture and also elevated resistive indices. This is nonspecific and could indicate rejection, inflammation or antirejection drug toxicity. Renal transplant artery and vein widely patent Interpreted and Authenticated by: Johnnie Bermudez 09/28/18
[2018-09-28] MEDS: INSULIN GLARGINE, HUMAN 1 UNIT/0.01 ML SQ SCH (20:55)
[2018-09-28] MEDS: SENNOSIDES/DOCUSATE SODIUM 1 TAB TABLET PO SCH (20:56)
[2018-09-28] MEDS: POLYETHYLENE GLYCOL 3350 17 GM PACKET PO SCH (20:56)
[2018-09-28] MEDS: HYDROcodone/APAP 10/325MG TABLET PO PRN (21:01)
[2018-09-29] MEDS: PIPERACILLIN SODIUM/TAZOBACTAM 3.375 GM in DEXTROSE 5% IN WATER 50 ML IV SCH ×3 (00:06→10:57)
[2018-09-29] MEDS: ACETAMINOPHEN 1,000 MG/100 ML BOTTLE IV PRN ×2 (02:18→10:39)
[2018-09-29] MEDS: IPRATROPIUM/ALBUTEROL 3 ML AMPUL.NEB NEB SCH ×3 (03:31→11:18)
[2018-09-29] MEDS: 0.9 % SODIUM CHLORIDE 250 ML IV SCH ×2 (05:22→10:33)
[2018-09-29] MEDS: 0.9 % SODIUM CHLORIDE 10 ML SYRINGE IV SCH (05:22)
[2018-09-29 05:29] LABS: Mean Cell Volume 82.8 fL (80.0-100.0); Mean Corpuscular HGB Conc 30.9 g/dL (31.0-36.0); Platelet Count 305 K/mcL (140-440); Red Cell Distribution Width 18.3 % (11.5-14.5)
[2018-09-29 05:53] LABS: ALT/SGPT 12 U/l (0-40); Albumin 2.6 gm/dL (3.2-5.2); Albumin/Globulin Ratio 0.9 (1.0-2.3); Alkaline Phosphatase 58 U/L (39-117); Bilirubin,Direct 0.4 mg/dL (0.0-0.3); Blood Urea Nitrogen 38 mg/dl (8-23); Gamma Glutamyl Transpeptidase 27 U/L (5-36); Uric Acid 5.5 mg/dL (2.5-8.0)
[2018-09-29 07:01] LABS: Anisocytosis 1+ (NONE SEEN); Band Neutrophils % 14 % (0-10); Eosinophils % (Manual) 1 % (0-7); Hypochromasia 1+ (NONE SEEN); Lymphocytes % 41 % (15-49); Monocytes % (Manual) 11 % (1-12); Platelet Estimate NORMAL (NORMAL); RBC Morphology ABNORM (NORMAL); Segmented Neutrophils % 33 % (38-78)
[2018-09-29] MEDS: predniSONE 5 MG TABLET PO SCH (07:15)
[2018-09-29] MEDS: LEVOTHYROXINE 100 MCG TABLET PO SCH (07:15)
[2018-09-29] MEDS: BUDESONIDE 0.5 MG/2 ML AMPUL.NEB NEB SCH (07:25)
--- NOTE | 2018-09-29 08:18 | XRay Report ---
HISTORY: Follow-up right lower lobe infiltrate FINDINGS: There are a few streaky linear opacities seen in the region of the lingula and above the right diaphragm. No consolidating infiltrate or mass are identified. Heart size is upper limits of normal. There is no congestive heart failure or pleural effusion. On the prior two view chest x-ray done on 09/27/18 there was a suggestion of an infiltrate in the right lower lobe on the lateral image. It was not clearly seen on the PA view. It is also not identified on today's portable AP chest x-ray. IMPRESSION: Thin linear bands of scar or discoid atelectasis in both lungs and no infiltrate is identified. Interpreted and Authenticated by: Hair Hoffman 09/29/18
--- NOTE | 2018-09-29 08:57 | Nephrology Progress Note ---
Subjective Patient information: Note initiated : 09/29/18 at 8:54 am Service Date, if different from initiated Date: [] Patient: Marialuisa Champagne 68 y/o F admitted on 09/27/18 for Fever, Low O2 Sats. Chief Complaint: [] Principal diagnosis: PNA, sepsis Interval history: Patient continues to be on pressors she is though more awake still has SOB, febrile no CP no other issues reported remains oliguric with worsening renal function Pertinent ROS: pertinent ROS documented above Objective - Vital Signs Vital signs: Vital Signs Temp Pulse Resp BP BP Pulse Ox 09/29/18 08:30 99.9 F H 21 09/29/18 08:17 99.9 F H 77 19 107/53 95 09/29/18 08:02 99.9 F H 74 20 100/48 95 09/29/18 07:46 100.0 F H 68 23 H 124/55 99 09/29/18 07:32 80 24 H 95 09/29/18 07:31 100.2 F H 75 25 H 125/50 95 09/29/18 07:29 77 25 H 09/29/18 07:28 93 09/29/18 07:16 100.2 F H 75 19 110/53 97 09/29/18 07:11 100.2 F H 76 21 110/49 97 09/29/18 07:06 100.1 F H 74 18 95/53 97 09/29/18 07:01 100.1 F H 80 19 92/54 97 09/29/18 06:56 100.1 F H 77 18 102/50 98 09/29/18 06:46 100.1 F H 61 17 122/43 100 09/29/18 06:31 100.1 F H 68 18 108/48 98 09/29/18 06:25 100.2 F H 76 19 114/57 96 09/29/18 06:11 100.3 F H 79 18 103/52 96 09/29/18 06:07 100.3 F H 79 19 133/58 94 09/29/18 06:04 100.3 F H 78 20 96 09/29/18 06:01 100.3 F H 80 17 112/59 98 09/29/18 05:56 100.3 F H 15 115/50 09/29/18 05:51 100.3 F H 18 110/54 09/29/18 05:46 100.3 F H 17 112/55 09/29/18 05:41 100.3 F H 20 113/53 09/29/18 05:36 100.3 F H 116 H 18 107/50 99 09/29/18 05:31 100.3 F H 72 18 101/54 100 09/29/18 05:26 100.3 F H 60 19 103/47 99 09/29/18 05:21 100.2 F H 74 17 110/47 99 09/29/18 05:19 100.2 F H 70 17 100 09/29/18 05:15 100.2 F H 65 17 91/50 100 09/29/18 05:10 100.2 F H 79 18 79/52 99 09/29/18 05:06 100.2 F H 72 18 80/39 95 09/29/18 05:00 100.2 F H 70 17 81/49 95 09/29/18 04:56 100.2 F H 76 22 81/50 96 09/29/18 04:51 100.2 F H 73 18 92/50 96 09/29/18 04:46 100.2 F H 67 15 95/63 99 09/29/18 04:40 100.2 F H 70 16 92/45 96 09/29/18 04:35 100.2 F H 79 17 78/45 96 09/29/18 04:34 100.2 F H 72 18 96 09/29/18 04:31 100.3 F H 76 18 76/41 95 09/29/18 04:25 100.3 F H 72 20 84/49 95 09/29/18 04:21 100.3 F H 80 19 94/41 93 09/29/18 04:15 100.4 F H 77 22 93/46 95 09/29/18 04:10 100.5 F H 80 29 H 83/41 94 09/29/18 04:06 100.6 F H 73 18 78/37 95 09/29/18 04:05 100.6 F H 84 19 56/42 95 09/29/18 03:31 101.1 F H 74 19 84/43 98 09/29/18 03:03 101.1 F H 09/29/18 03:01 101.3 F H 68 17 109/51 100 04/11/19 02:42 101.2 F H 73 19 114/93 98 09/29/18 02:30 101.0 F H 73 17 116/100 96 09/29/18 02:20 100.9 F H 73 16 107/81 100 09/29/18 02:18 100.9 F H 09/29/18 02:01 100.8 F H 73 16 91/31 99 09/29/18 02:00 99 09/29/18 01:30 100.7 F H 71 17 89/69 88 L 09/29/18 01:01 100.8 F H 66 15 91/42 95 09/29/18 00:36 100.8 F H 77 19 127/108 94 09/29/18 00:00 100.2 F H 70 13 113/88 95 09/28/18 23:49 100.0 F H 66 14 97 09/28/18 23:30 99.9 F H 52 L 17 95/57 100 09/28/18 23:15 77 22 09/28/18 23:00 99.8 F H 63 17 93/54 96 09/28/18 22:30 100.0 F H 74 25 H 94/59 93 09/28/18 22:26 100.1 F H 77 22 94 09/28/18 22:20 100.2 F H 73 22 88/48 92 09/28/18 22:15 100.3 F H 71 24 H 96/40 87 L 09/28/18 22:10 100.4 F H 68 14 83/53 92 09/28/18 22:05 100.4 F H 77 17 80/48 93 09/28/18 22:00 100.5 F H 78 18 83/46 91 09/28/18 21:55 100.5 F H 70 21 75/45 92 09/28/18 21:51 100.6 F H 72 23 H 77/39 91 09/28/18 21:43 100.8 F H 79 21 73/47 93 09/28/18 21:34 100.9 F H 76 21 95 09/28/18 21:33 100.9 F H 77 24 H 66/48 94 09/28/18 21:31 100.9 F H 78 19 71/41 93 09/28/18 21:01 100.9 F H 81 22 123/64 91 09/28/18 20:31 100.9 F H 83 29 H 122/62 93 09/28/18 20:01 100.7 F H 82 18 121/57 98 09/28/18 20:00 95 09/28/18 19:30 79 28 H 110/61 100 09/28/18 19:18 100 09/28/18 19:16 77 20 09/28/18 19:01 69 32 H 92/49 99 09/28/18 18:47 95 09/28/18 18:31 79 35 H 104/48 93 09/28/18 18:16 79 31 H 107/59 95 09/28/18 18:01 78 19 113/57 92 09/28/18 17:59 83 21 108/59 95 09/28/18 17:56 79 18 108/59 90 09/28/18 17:30 25 H 93/64 09/28/18 17:16 75 18 101/59 96 09/28/18 17:10 79 18 108/44 96 09/28/18 16:00 95/53 09/28/18 15:48 118/72 09/28/18 15:40 108/63 09/28/18 15:30 110/62 09/28/18 15:15 121/62 09/28/18 15:00 82/45 09/28/18 14:40 71/47 09/28/18 14:00 78/40 09/28/18 13:13 99.8 F H 09/28/18 12:00 98.1 F 22 79/47 94 09/28/18 11:42 99 H 20 09/28/18 09:06 99.8 F H Intake and Output 09/28/18 09/29/18 09/29/18 21:59 05:59 13:59 Intake Total 1516 493 289 Output Total 82 146 41 Balance 1434 347 248 Intake: IV 1516 193 49 Sodium Chloride 0.9% 1,000 ml @ 966 Wide Open IV [facility] Rx#: [id number] Levophed 16 mg In Sodium 143 49 Chloride 0.9% 234 ml @ 10 MCG/ MIN 9.38 mls/hr IV Q24H [facility] Rx# :[id number] Zosyn 3.375 gm In Dextrose 5% 50 50 in Water 50 ml @ 100 mls/hr IV Q6H [facility] Rx#:[id number] Vancomycin 2,000 mg In Sodium 500 Chloride 0.9% 500 ml @ 250 mls/ hr IV Q24H [facility] Rx#:[id number] Oral 300 240 Output: Urine Catheter Amount 82 146 41 Other: Urine Appearance Cloudy Clear Uretheral ([place]) Clear Clear Clear Urine Color Dark Yellow Dark Yellow Dark Yellow Uretheral ([place]) Dark Yellow Dark Yellow Dark Yellow Stool Size Large Stool Color Brown Stool Consistency Liquid Weight 366 lb 9.6 oz Intake & Output: Intake & Output 09/28/18 09/29/18 09/29/18 21:59 05:59 13:59 Intake Total 1516 493 289 Output Total 82 146 41 Balance 1434 347 248 Weight 366 lb 9.6 oz Intake: IV 1516 193 49 Sodium Chloride 0.9% 1,000 ml @ 966 Wide Open IV [facility] Rx#: [id number] Levophed 16 mg In Sodium 143 49 Chloride 0.9% 234 ml @ 10 MCG/ MIN 9.38 mls/hr IV Q24H [facility] Rx# :[id number] Zosyn 3.375 gm In Dextrose 5% 50 50 in Water 50 ml @ 100 mls/hr IV Q6H [facility] Rx#:[id number] Vancomycin 2,000 mg In Sodium 500 Chloride 0.9% 500 ml @ 250 mls/ hr IV Q24H [facility] Rx#:[id number] Oral 300 240 Output: Urine Catheter Amount 82 146 41 Other: Urine Appearance Cloudy Clear Uretheral ([place]) Clear Clear Clear Urine Color Dark Yellow Dark Yellow Dark Yellow Uretheral ([place]) Dark Yellow Dark Yellow Dark Yellow Stool Size Large Stool Color Brown Stool Consistency Liquid - General Appearance General appearance: appears started age, obese EENT: mucous membranes moist Neck: no JVD Respiratory: rales Cardiology: no rub, no edema, regular rate, regular rhythm Gastrointestinal: no tenderness, no guarding Integumentary: warm and dry Neurologic: alert and oriented x3 Musculoskeletal: no erythema, no cyanosis Psychiatric: mood/affect appropriate - Lab 09/29/18 03:58 09/29/18 03:58 Most recent lab results Calcium 8.0 mg/dl (8.6-10.4) L 09/29/18 03:58 Phosphorus 4.6 mg/dL (2.7-4.5) H 09/29/18 03:58 Magnesium 1.6 mg/dL (1.6-2.5) 09/29/18 03:58 Assessment and Plan (1) Right lower lobe pneumonia Status: Acute - Narrative A/P Narrative: s/p cadaveric renal transplant in 1992 baseline s.creatinine is 1.1, s.creatinine this hospital stay is 1.2-1.6-2.2 UA with RBC/wbc/protein FENA is 0.2% SHERRY likely from sepsis causing ATN worsening renal function, continues to be on pressors, oliguric discussed with transplant nephrology,Dr Cazares, he recommended patient be transferred to [place] so that transplant nephrology can follow discussed with the patient and Dr Reynoso. PNA/sepsis and other medical issues managed by hospitalist will follow along Thank you for giving me an opportunity to participate in Ms Champagne's medical care, appreciate it
[2018-09-29] MEDS: 0.9 % SODIUM CHLORIDE 1,000 ML IV SCH (09:15)
[2018-09-29] MEDS: INSULIN LISPRO 1 UNIT/0.01 ML UNIT SQ SCH ×2 (09:15→12:03)
[2018-09-29] MEDS: DOCUSATE SODIUM 100 MG CAPSULE PO SCH (09:16)
[2018-09-29] MEDS: SENNOSIDES 1 TABLET PO SCH (09:16)
[2018-09-29] MEDS: METOPROLOL TARTRATE 25 MG TABLET PO SCH (09:16)
[2018-09-29] MEDS: ALLOPURINOL 300 MG TABLET PO SCH (09:19)
[2018-09-29] MEDS: CALCIUM W/VIT D3 500 MG TABLET PO SCH (09:19)
[2018-09-29] MEDS: MULTIVIT,THER IRON,CA,FA & MIN 1 TABLET PO SCH (09:19)
[2018-09-29] MEDS: HYDROcodone/APAP 10/325MG TABLET PO PRN (09:19)
[2018-09-29] MEDS: MUPIROCIN OINT 2% 22GM TOPICAL SCH (09:20)
--- NOTE | 2018-09-29 10:14 | Transfer Summary ---
Transfer Discharge Sum: Prov Patient information: Note initiated : 09/29/18 at 10:11 am Service Date, if different from initiated Date: [] Patient: Marialuisa Champagne 68 y/o F admitted on 09/27/18 for Fever, Low O2 Sats. Chief Complaint: [] Date of admission: 09/27/18 13:56 Discharge Date: 09/29/18 Primary care physician: Danay Andersen Consults: 09/27/18 12:26 Consult to Physician [CONS] Stat Comment: Consulting Provider: Bert Reynoso Reason For Exam: Physician to Consult 09/28/18 10:11 Consult to Physician [CONS] Routine Comment: right pannus fold wound Consulting Provider: Klever P[place]agua Reason For Exam: Physician to Consult Transfer Discharge Sum: Diag - Discharge Diagnosis (1) Right lower lobe pneumonia Status: Acute Transfer Discharge Sum: Med - Medications Active and Home Medications: Home Medications allopurinol 300 mg tablet 300 mg PO QDAY 03/29/18 [History Confirmed 09/27/18] albuterol 90 mcg/actuation aerosol inhaler 90 mcg INHALATION QDAY PRN 05/09/18 [History Confirmed 09/27/18] Ergocalciferol (Vitamin D2) [Vitamin D2] 50,000 unit PO WEEKLY 07/09/18 [History Confirmed 09/27/18] HYDROcodone/APAP 10/325MG [[place] 10-325Mg] 1 - 2 tab PO Q4H PRN 07/09/18 [History Confirmed 09/27/18] Insulin Glargine, Human [Lantus] 20 unit SQ HS 07/09/18 [History Confirmed 09/27/18] Levothyroxine [Synthroid] 100 mcg PO DAILY 07/09/18 [History Confirmed 09/27/18] Lisinopril [Zestril] 10 mg PO DAILY 07/09/18 [History Confirmed 09/27/18] Methocarbamol [Robaxin] 500 mg PO Q8 PRN 07/09/18 [History Confirmed 09/27/18] Metoprolol Tartrate [Lopressor] 25 mg PO BID #60 tab 07/09/18 [Rx Confirmed 09/27/18] Mycophenolate Mofetil [Cellcept] 500 mg PO TID 07/09/18 [History Confirmed 09/27/18] Ondansetron [Zofran ODT] 4 mg SL Q6HP PRN 07/09/18 [History Confirmed 09/27/18] Polyethylene Glycol 3350 [Miralax] 17 gm PO HS 07/09/18 [History Confirmed 09/27/18] Warfarin [Coumadin] 2 mg PO DAILY 07/09/18 [History Confirmed 09/27/18] cycloSPORINE, MODIFIED [Cyclosporine Modified] 75 mg PO Q12 07/09/18 [History Confirmed 09/27/18] predniSONE [Prednisone] 5 mg PO DAILY 07/09/18 [History Confirmed 09/27/18] calcium carbonate 500 mg (1,250 mg)-vitamin D3 200 unit tablet 1 tab PO BID 09/13/18 [History Confirmed 09/27/18] multivitamin tablet 1 tab PO QDAY 09/13/18 [History Confirmed 09/27/18] sennosides 8.6 mg tablet 8.6 mg PO BID 09/13/18 [History Confirmed 09/27/18] Dulcolax 10 mg ND DAILY PRN 09/27/18 [History Confirmed 09/27/18] Insulin Lispro [Humalog] See Protocol 09/27/18 [History] Ipratropium/Albuterol [Duoneb] 0.5 - 3 mg INH Q6HP PRN 09/27/18 [History Confirmed 09/27/18] Milk of Magnesia 30 ml PO DAILY PRN 09/27/18 [History Confirmed 09/27/18] Na Phos,M-B/Na Phos,Di-Ba [Fleets Adult] 1 dose ND DAILY PRN 09/27/18 [History Confirmed 09/27/18] Active Medications Acetaminophen (Tylenol) 650 mg PO Q4-6HP PRN PRN Reason: PAIN/FEVER > 101 Hydrocodone Bitart/Acetaminophen ([place] 10/325mg) 1 - 2 tab PO Q4HP PRN PRN Reason: Pain Last Admin: 09/29/18 09:19 Dose: 1 tab Documented by: Albuterol Sulfate (Ventolin) 1 puff INH Q4HP PRN PRN Reason: Shortness Of Breath Albuterol/Ipratropium (Duoneb) 3 ml NEB Q4HRT SHANNAN Last Admin: 09/29/18 07:25 Dose: 3 ml Documented by: Albuterol/Ipratropium (Duoneb) 3 ml NEB Q6HP PRN PRN Reason: Shortness Of Breath Allopurinol (Zylopriim) 300 mg PO QDAY [facility] Last Admin: 09/29/18 09:19 Dose: 300 mg Documented by: Bisacodyl (Dulcolax) 10 mg ND DAILYP PRN PRN Reason: Constipation Budesonide (Pulmicort) 0.5 mg NEB Q12 [facility] Last Admin: 09/29/18 07:25 Dose: 0.5 mg Documented by: Calcium/Vitamin D (Calcium W/Vit D3) 500 mg PO BID [facility] Last Admin: 09/29/18 09:19 Dose: 500 mg Documented by: Dextrose (Dextrose 50%) 0 ml IV UD PRN PRN Reason: Hypoglycemia Diagnostic Test (Pha) (Accu-Chek) 1 each FS ACHS [facility] Last Admin: 09/29/18 07:14 Dose: 1 each Documented by: Docusate Sodium (Colace) 100 mg PO BID [facility] Last Admin: 09/29/18 09:16 Dose: Not Given Documented by: Ergocalciferol (Drisdol) 50,000 unit PO We@0900 [facility] Last Admin: 09/28/18 11:00 Dose: 50,000 unit Documented by: Glucose (Insta-Glucose) 15 gm PO PRN PRN PRN Reason: Hypoglycemia Magnesium Sulfate (Magnesium Sulfate) 2 gm in 50 mls @ 50 mls/hr IV UD PRN PRN Reason: MG = or < 1.7 Last Infusion: 09/28/18 09:25 Dose: Infused Documented by: Sodium Chloride (Sodium Chloride 0.9%) 1,000 mls @ 50 mls/hr IV .Q20H [facility] Stop: 09/30/18 02:09 Last Admin: 09/29/18 09:15 Dose: Not Given Documented by: Acetaminophen (Ofirmev) 1,000 mg in 100 mls @ 200 mls/hr IV Q6HP PRN PRN Reason: PAIN/FEVER > 101 Last Admin: 09/29/18 02:18 Dose: 200 mls/hr Documented by: Piperacillin Sod/Tazobactam (Sod 3.375 gm/ Dextrose) 50 mls @ 100 mls/hr IV Q6H [facility] Last Admin: 09/29/18 05:22 Dose: 100 mls/hr Documented by: Vancomycin HCl 2,000 mg/ (Sodium Chloride) 500 mls @ 250 mls/hr IV Q24H [facility] Last Infusion: 09/28/18 15:40 Dose: Infused Documented by: Norepinephrine Bitartrate 16 (mg/ Sodium Chloride) 250 mls @ 9.38 mls/hr IV Q24H [facility]; Protocol Last Titration: 09/29/18 07:11 Dose: 25 mcg/min, 23.44 mls/hr Documented by: Sodium Chloride (Sodium Chloride 0.9%) 250 mls @ 20 mls/hr IV .[id number] [facility] Last Admin: 09/29/18 05:22 Dose: Not Given Documented by: Insulin Glargine (Lantus) 20 unit SQ [facility] Last Admin: 09/28/18 20:55 Dose: 20 unit Documented by: Insulin Human Lispro (Humalog) 0 unit SQ [facility] PENDING SALE TO [facility]; Protocol Last Admin: 09/29/18 09:15 Dose: Not Given Documented by: Iron Carb/Multivit/Territory Business Manager/Folic Acid (Multivitamin W/Minerals) 1 tab PO DAILY [facility] Last Admin: 09/29/18 09:19 Dose: 1 tab Documented by: Levothyroxine Sodium (Synthroid) 100 mcg PO QAMAC [facility] Last Admin: 09/29/18 07:15 Dose: 100 mcg Documented by: Magnesium Hydroxide (Milk Of Magnesia) 30 ml PO DAILYP PRN PRN Reason: Constipation Methocarbamol (Robaxin) 500 mg PO Q8HP PRN PRN Reason: Muscle Spasm Metoprolol Tartrate (Lopressor) 25 mg PO BID [facility] Last Admin: 09/29/18 09:16 Dose: Not Given Documented by: Mupirocin (Bactroban Oint 2%) 1 dose TOPICAL BID [facility] Last Admin: 09/29/18 09:20 Dose: 1 dose Documented by: Ondansetron HCl (Zofran) 4 mg IV Q4-6HP PRN PRN Reason: Nausea And Vomiting Last Admin: 09/28/18 21:44 Dose: 4 mg Documented by: Ondansetron HCl (Zofran Odt) 4 mg SL Q6HP PRN PRN Reason: Nausea Last Admin: 09/28/18 09:29 Dose: 4 mg Documented by: Polyethylene Glycol (Miralax) 17 gm PO [facility] Last Admin: 09/28/18 20:56 Dose: Not Given Documented by: Potassium Chloride (Klor-Con) 40 meq PO DAILYP PRN PRN Reason: K+ < 3.5 Prednisone (Prednisone) 5 mg PO QAC [facility] Last Admin: 09/29/18 07:15 Dose: 5 mg Documented by: Senna (Senokot) 1 tab PO BID [facility] Last Admin: 09/29/18 09:16 Dose: Not Given Documented by: Senna/Docusate Sodium (Senna Plus Tablet) 1 tab PO [facility] Last Admin: 09/28/18 20:56 Dose: Not Given Documented by: Sodium Biphosphate/Sodium Phosphate (Fleets Adult) 1 dose ND DAILYP PRN PRN Reason: Constipation Sodium Chloride (Saline Flush) 10 ml IV Q8 [facility] Last Admin: 09/29/18 05:22 Dose: Not Given Documented by: Trazodone HCl (Desyrel) 50 mg PO HSP PRN PRN Reason: Insomnia Vancomycin HCl (Vancomycin Per Pharmacy) 1 order IV [facility]; Protocol Warfarin Sodium (Coumadin Per Pharmacy) 1 order PO UD [facility] Transfer Discharge Sum: Hosp Hospital course: TRANSFER DIAGNOSIS * Septic shock secondary to gram-positive bacteremia, likely source PNA. Underlying immunocompromise state. Currently on vasopressors-Levophed at 25 mics. Status post 5 L crystalloids. Venous lactate 0.7. Start stress dose steroid. * Acute renal failure- Over 100% rise in baseline creatinine. Nephrology recommends transfer to tertiary Center after discussion with transplant manager eligibility Dr. Haney at [facility] * Right lower lobe pneumonia-community acquired versus aspiration. On Zosyn/vancomycin/aspiration precaution * Acute cystitis-mild pyuria on antibody coverage * Hypoxic respiratory failure secondary to above -on supplemental oxygen/pulmonary toilet/aspiration precautions * Insulin-dependent diabetes-continue basal prandial insulin. Blood sugars at goal * Recent trimalleolar ankle/distal femur fracture(05/28-06/23/18) undergoing rehabilitation at [facility]. Continue PT OT and weightbearing recommendation as per orthopedics * History of hypertension -Home medication on hold including VIRY inhibitor/beta petrona * History of gout continue allopurinol * Hypothyroidism continue thyroxine * Status post renal transplant. On CellCept/cyclosporine/prednisone. * H/o DVT- On coumadin. INR therapeutic at 3.7 [facility] Ms. Champagne is a 68 year old F with a history of renal transplant on immunosuppressives. Is currently recovering after right ankle and femur fracture end of May and currently at [facility]. Over the last few days patient has noted increasing weakness, productive sputum and shortness of breath. She tried to work with the symptoms over the weekend however however did not get any better. This morning she developed high-grade fever and became lethargic, unable to breathe and subsequently was transferred to [facility] ER for further evaluation. On presentation her sats were mid 60s on room air. Initial workup was consistent with right lower lobe pneumonia. Patient was started on antibiotic coverage along with supplemental oxygen Hospitalist service is consulted for admission in light of above At the time of evaluation patient is alert oriented. She appears moderately short of breath. She is accompanied by her . She is able to answer most questions. Post surgery she has been recovering well and has been able to bear weight using boot on the right side. She denies associated nausea vomiting chest painpalpitation. She denies arthralgia myalgia but endorses to sweats a nd chills. 09/28-patient remains lethargic and febrile. White count 8.2. Creatinine 1.6. Nephrology consulted for management of renal transplant medications/SHERRY. INR 3.2. Coumadin dosing based on INR. 09/28 -Late afternoon Worsening sepsis, hypotension. Gram-positive cocci on blood culture Started on vancomycin in addition to the Zosyn Crystalloid challenge Venous lactate 0.7 ABG 7.31 Repeat surveillance blood culture Start vasopressors to keep map over 65 Transfered to ICU 09/29-patient remains febrile and overnight on escalating doses of Levophed currently at 25 mics to keep map at goal. #5000 cc positive fluid balance. Urine output 10 cc an hour overnight. Creatinine up to 2.2. Nephrology discussed with transplant manager eligibility at [facility] and recommends transfer to tertiary Center. Case was discussed with Dr. Keyes [facility] sash sticker. Highly appreciate accepting transfer for further management of this complex 68-year-old lady on immunosuppressives and septic shock Please call hospitalist phone for additional information or questions- [phone] - Time Spent with Patient Total time spent providing and/or coordinating transfer services: Greater than 30 minutes Transfer Discharge Sum: Exam - Constitutional Vitals: Vital Signs Temp Pulse Resp BP BP Pulse Ox 09/29/18 08:30 99.9 F H 21 09/29/18 08:17 99.9 F H 77 19 107/53 95 09/29/18 08:02 99.9 F H 74 20 100/48 95 09/29/18 07:46 100.0 F H 68 23 H 124/55 99 09/29/18 07:32 80 24 H 95 09/29/18 07:31 100.2 F H 75 25 H 125/50 95 09/29/18 07:29 77 25 H 09/29/18 07:28 93 09/29/18 07:16 100.2 F H 75 19 110/53 97 09/29/18 07:11 100.2 F H 76 21 110/49 97 09/29/18 07:06 100.1 F H 74 18 95/53 97 09/29/18 07:01 100.1 F H 80 19 92/54 97 09/29/18 06:56 100.1 F H 77 18 102/50 98 09/29/18 06:46 100.1 F H 61 17 122/43 100 09/29/18 06:31 100.1 F H 68 18 108/48 98 09/29/18 06:25 100.2 F H 76 19 114/57 96 09/29/18 06:11 100.3 F H 79 18 103/52 96 09/29/18 06:07 100.3 F H 79 19 133/58 94 09/29/18 06:04 100.3 F H 78 20 96 09/29/18 06:01 100.3 F H 80 17 112/59 98 09/29/18 05:56 100.3 F H 15 115/50 09/29/18 05:51 100.3 F H 18 110/54 09/29/18 05:46 100.3 F H 17 112/55 09/29/18 05:41 100.3 F H 20 113/53 09/29/18 05:36 100.3 F H 116 H 18 107/50 99 09/29/18 05:31 100.3 F H 72 18 101/54 100 09/29/18 05:26 100.3 F H 60 19 103/47 99 04/11/19 05:21 100.2 F H 74 17 110/47 99 09/29/18 05:19 100.2 F H 70 17 100 09/29/18 05:15 100.2 F H 65 17 91/50 100 09/29/18 05:10 100.2 F H 79 18 79/52 99 09/29/18 05:06 100.2 F H 72 18 80/39 95 09/29/18 05:00 100.2 F H 70 17 81/49 95 09/29/18 04:56 100.2 F H 76 22 81/50 96 09/29/18 04:51 100.2 F H 73 18 92/50 96 09/29/18 04:46 100.2 F H 67 15 95/63 99 09/29/18 04:40 100.2 F H 70 16 92/45 96 09/29/18 04:35 100.2 F H 79 17 78/45 96 09/29/18 04:34 100.2 F H 72 18 96 09/29/18 04:31 100.3 F H 76 18 76/41 95 09/29/18 04:25 100.3 F H 72 20 84/49 95 09/29/18 04:21 100.3 F H 80 19 94/41 93 09/29/18 04:15 100.4 F H 77 22 93/46 95 09/29/18 04:10 100.5 F H 80 29 H 83/41 94 09/29/18 04:06 100.6 F H 73 18 78/37 95 09/29/18 04:05 100.6 F H 84 19 56/42 95 09/29/18 03:31 101.1 F H 74 19 84/43 98 09/29/18 03:03 101.1 F H 09/29/18 03:01 101.3 F H 68 17 109/51 100 09/29/18 02:42 101.2 F H 73 19 114/93 98 09/29/18 02:30 101.0 F H 73 17 116/100 96 09/29/18 02:20 100.9 F H 73 16 107/81 100 09/29/18 02:18 100.9 F H 09/29/18 02:01 100.8 F H 73 16 91/31 99 09/29/18 02:00 99 09/29/18 01:30 100.7 F H 71 17 89/69 88 L 09/29/18 01:01 100.8 F H 66 15 91/42 95 09/29/18 00:36 100.8 F H 77 19 127/108 94 09/29/18 00:00 100.2 F H 70 13 113/88 95 09/28/18 23:49 100.0 F H 66 14 97 09/28/18 23:30 99.9 F H 52 L 17 95/57 100 09/28/18 23:15 77 22 09/28/18 23:00 99.8 F H 63 17 93/54 96 09/28/18 22:30 100.0 F H 74 25 H 94/59 93 09/28/18 22:26 100.1 F H 77 22 94 09/28/18 22:20 100.2 F H 73 22 88/48 92 09/28/18 22:15 100.3 F H 71 24 H 96/40 87 L 09/28/18 22:10 100.4 F H 68 14 83/53 92 09/28/18 22:05 100.4 F H 77 17 80/48 93 09/28/18 22:00 100.5 F H 78 18 83/46 91 09/28/18 21:55 100.5 F H 70 21 75/45 92 09/28/18 21:51 100.6 F H 72 23 H 77/39 91 09/28/18 21:43 100.8 F H 79 21 73/47 93 09/28/18 21:34 100.9 F H 76 21 95 09/28/18 21:33 100.9 F H 77 24 H 66/48 94 09/28/18 21:31 100.9 F H 78 19 71/41 93 09/28/18 21:01 100.9 F H 81 22 123/64 91 09/28/18 20:31 100.9 F H 83 29 H 122/62 93 09/28/18 20:01 100.7 F H 82 18 121/57 98 09/28/18 20:00 95 09/28/18 19:30 79 28 H 110/61 100 09/28/18 19:18 100 09/28/18 19:16 77 20 09/28/18 19:01 69 32 H 92/49 99 09/28/18 18:47 95 09/28/18 18:31 79 35 H 104/48 93 09/28/18 18:16 79 31 H 107/59 95 09/28/18 18:01 78 19 113/57 92 09/28/18 17:59 83 21 108/59 95 09/28/18 17:56 79 18 108/59 90 09/28/18 17:30 25 H 93/64 09/28/18 17:16 75 18 101/59 96 09/28/18 17:10 79 18 108/44 96 09/28/18 16:00 95/53 09/28/18 15:48 118/72 09/28/18 15:40 108/63 09/28/18 15:30 110/62 09/28/18 15:15 121/62 09/28/18 15:00 82/45 09/28/18 14:40 71/47 09/28/18 14:00 78/40 09/28/18 13:13 99.8 F H 09/28/18 12:00 98.1 F 22 79/47 94 09/28/18 11:42 99 H 20 Intake and Output 09/28/18 09/29/18 09/29/18 21:59 05:59 13:59 Intake Total 1516 493 289 Output Total 82 146 41 Balance 1434 347 248 Intake: IV 1516 193 49 Sodium Chloride 0.9% 1,000 ml @ 966 Wide Open IV B[facility] ONE Rx#: [id number] Levophed 16 mg In Sodium 143 49 Chloride 0.9% 234 ml @ 10 MCG/ MIN 9.38 mls/hr IV Q24H PENDING SALE TO [facility] Rx# :[id number] Zosyn 3.375 gm In Dextrose 5% 50 50 in Water 50 ml @ 100 mls/hr IV Q6H PENDING SALE TO [facility] Rx#:[id number] Vancomycin 2,000 mg In Sodium 500 Chloride 0.9% 500 ml @ 250 mls/ hr IV Q24H PENDING SALE TO [facility] Rx#:[id number] Oral 300 240 Output: Urine Catheter Amount 82 146 41 Other: Urine Appearance Cloudy Clear Uretheral ([place]) Clear Clear Clear Urine Color Dark Yellow Dark Yellow Dark Yellow Uretheral ([place]) Dark Yellow Dark Yellow Dark Yellow Stool Size Large Stool Color Brown Stool Consistency Liquid Weight 366 lb 9.6 oz Transfer Discharge Sum: A/P - Problem Maintenance (1) Right lower lobe pneumonia Status: Acute - Plan Functional capacity at transfer: bed bound Overall status at transfer: patient is not back to baseline Disposition: Xfer [facility] Quality Measure Queries - VTE Deep Vein Thrombosis/Pulmonary Embolism Present on Admission: No
[2018-09-29] MEDS ORDERED: HYDROCORTISONE SOD SUCC 100 MG VIAL IV ONE (10:18)
[2018-09-29] MEDS: NOREPINEPHRINE BITARTRATE 16 MG in 0.9 % SODIUM CHLORIDE 234 ML IV SCH (10:32)
[2018-09-29] MEDS: VANCOMYCIN 2,000 MG in 0.9 % SODIUM CHLORIDE 500 ML IV SCH (10:39)
[2018-09-29] MEDS: ONDANSETRON 4 MG ODT TABLET SL PRN (10:54)
[2018-09-29] MEDS: ONDANSETRON 4 MG/2 ML VIAL IV PRN (10:54)
[2018-09-29] MEDS: sitaGLIPtin 100 MG TABLET PO SCH (12:04)
--- NOTE | 2018-10-03 17:34 | General Surgery Consult Note ---
History of Present Illness Patient information: Note initiated : 10/03/18 at 5:28 pm Service Date, if different from initiated Date: [] Patient: Marialuisa Champagne 68 y/o F admitted on 09/27/18 for Fever, Low O2 Sats. Chief Complaint: [] Consult date: 09/28/18 Requesting physician: Bert Reynoso (Skin lesion forehead) History of present illness: I had seen this patient briefly in consultation. Pleasant, morbid obese female was admitted to the hospital with sepsis due to pneumonia following open reduction internal fixation of an ankle fracture. Patient has significant past medical history of gout arthritis and chronic immunosuppression with CellCept, cyclosporine and prednisone. She has undergone cadaveric kidney transplant for polycystic disease of kidney. She had history of skin cancers in the past. She has history of chronic blindness. On examination patient was afebrile. No acute cardiorespiratory symptoms or findings at the time of examination. Morbid obese female. Unremarkable general physical examination. Local examination exophytic skin lesion of the right forehead. Probably suspicious for skin cancer in this immunosuppressed patient. Recommend: Agree with transfer to hospital for higher level of care. The skin lesion issue can be addressed at the time. No follow-up recommended needed at wound care clinic here in [facility] at this time. Medications and Allergies Home Medications Medication Instructions Recorded Confirmed Type allopurinol 300 mg tablet 300 mg PO QDAY 03/29/18 09/27/18 History albuterol 90 mcg/actuation aerosol 90 mcg INHALATION QDAY PRN 05/09/18 09/27/18 History inhaler Ergocalciferol (Vitamin D2) 50,000 unit PO WEEKLY 07/09/18 09/27/18 History [Vitamin D2] HYDROcodone/APAP 10/325MG [[place] 1 - 2 tab PO Q4H PRN 07/09/18 09/27/18 History 10-325Mg] Insulin Glargine, Human [Lantus] 20 unit SQ HS 07/09/18 09/27/18 History Levothyroxine [Synthroid] 100 mcg PO DAILY 07/09/18 09/27/18 History Lisinopril [Zestril] 10 mg PO DAILY 07/09/18 09/27/18 History Methocarbamol [Robaxin] 500 mg PO Q8 PRN 07/09/18 09/27/18 History Metoprolol Tartrate [Lopressor] 25 mg PO BID #60 tab 07/09/18 09/27/18 Rx Mycophenolate Mofetil [Cellcept] 500 mg PO TID 07/09/18 09/27/18 History Ondansetron [Zofran ODT] 4 mg SL Q6HP PRN 07/09/18 09/27/18 History Polyethylene Glycol 3350 [Miralax] 17 gm PO HS 07/09/18 09/27/18 History Warfarin [Coumadin] 2 mg PO DAILY 07/09/18 09/27/18 History cycloSPORINE, MODIFIED 75 mg PO Q12 07/09/18 09/27/18 History [Cyclosporine Modified] predniSONE [Prednisone] 5 mg PO DAILY 07/09/18 09/27/18 History calcium carbonate 500 mg (1,250 1 tab PO BID 09/13/18 09/27/18 History mg)-vitamin D3 200 unit tablet multivitamin tablet 1 tab PO QDAY 09/13/18 09/27/18 History sennosides 8.6 mg tablet 8.6 mg PO BID 09/13/18 09/27/18 History Dulcolax 10 mg [place] DAILY PRN 09/27/18 09/27/18 History Insulin Lispro [Humalog] See Protocol 09/27/18 History Ipratropium/Albuterol [Duoneb] 0.5 - 3 mg INH Q6HP PRN 09/27/18 09/27/18 History Milk of Magnesia 30 ml PO DAILY PRN 09/27/18 09/27/18 History Na Phos,M-B/Na Phos,Di-Ba [Fleets 1 dose [place] DAILY PRN 09/27/18 09/27/18 History Adult] Allergies Allergy/AdvReac Type Severity Reaction Status Date / Time walnut Allergy Severe Anaphylaxis Verified 09/27/18 14:20 morphine Allergy Mild Rash Verified 09/27/18 14:20 Exam Temp Pulse Resp BP Pulse Ox 100.1 F H 92 H 16 119/82 95 09/29/18 12:08 09/29/18 12:08 09/29/18 12:08 09/29/18 12:08 09/29/18 12:08 Results - Labs 09/29/18 03:58 09/29/18 03:58 All other labs normal. Assessment and Plan (1) Skin abnormalities Assessment: Exophytic skin lesion Right fore head. PNA , SIRS improved. Plan: Agree with transfer to higher level of care in [place]. Skin lesion excision or debridement to be addressed later. See brief note at the top of this consultation . Status: Chronic Priority: Medium
== END 2018-09-29 11:25 | disposition short-term general hospital (02) | DRG 871 ==
LOC: ED 10:45 → ICU 13:56
PROVIDERS: ADMIT Internal Medicine; ATTEND Internal Medicine

== ENCOUNTER 2020-09-18 14:00 | Inpatient (IN) ==
--- NOTE | 2020-09-18 14:06 | Emergency Department Note ---
Female Urogenital HPI General Chief complaint: Urogenital-Female Stated complaint: UTI Time Seen by Provider: 09/18/20 14:03 Source: patient, family and EMS Mode of arrival: EMS Limitations: no limitations History of Present Illness HPI Narrative: Narrative: 70-year-old female presents emergency department via EMS with concerns of UTI and worrying about her kidneys. She has been battling a urinary tract infection for the last 6 months or so and did have urosepsis where she had to go to [place] for treatment. She is worried and want stay on top of it. About 2 weeks ago she had been off antibiotics but then she started to develop dysuria and felt like she was not producing very much urine. On September 14 her primary care provider Dr. Andersen called in Bactri and did not get a urine culture since the patient was unable to urinate. Since she started the antibiotics the dysuria has improved and she states that she has been showing improvement with urine production as well. She is mostly concerned about her kidneys since she had a kidney transplant 20+ years ago. She does have chronic nausea and it did take Zofran about an hour prior to arrival at emergency department but states that she still does have some nausea in the emergency department she denies any new or worsening symptoms including headache, fever, chest pain, shortness of breath, abdominal pain, vomiting. Related Data Home Medications Medication Instructions Recorded Confirmed allopurinol 300 mg tablet 100 mg PO QDAY 03/29/18 11/27/19 albuterol 90 mcg/actuation aerosol 90 mcg INHALATION QDAY PRN 05/09/18 09/27/18 inhaler cyclosporine modified 75 mg PO Q12 07/09/18 11/27/19 ergocalciferol (vitamin D2) 50,000 unit PO WEEKLY 07/09/18 09/27/18 hydrocodone-acetaminophen 1 - 2 tab PO Q4H PRN 07/09/18 09/27/18 insulin glargine 20 unit SQ HS 07/09/18 09/27/18 levothyroxine 100 mcg PO DAILY 07/09/18 11/27/19 lisinopril 10 mg PO DAILY 07/09/18 11/27/19 methocarbamol 750 mg PO Q8 PRN 07/09/18 11/27/19 mycophenolate mofetil 500 mg PO TID 07/09/18 11/27/19 ondansetron 4 mg SL Q6HP PRN 07/09/18 11/27/19 polyethylene glycol 3350 [Miralax] 17 gm PO HS 07/09/18 09/27/18 prednisone 5 mg PO DAILY 07/09/18 11/27/19 warfarin 2 mg PO DAILY 07/09/18 09/27/18 calcium carbonate 500 mg (1,250 1 tab PO BID 09/13/18 09/27/18 mg)-vitamin D3 200 unit tablet multivitamin 1 tab PO QDAY 09/13/18 09/27/18 sennosides 8.6 mg tablet 8.6 mg PO BID 09/13/18 09/27/18 Dulcolax 10 mg NV DAILY PRN 09/27/18 09/27/18 Milk of Magnesia 30 ml PO DAILY PRN 09/27/18 09/27/18 insulin lispro 3 units SQ DAILY 09/27/18 11/27/19 ipratropium-albuterol 0.5 - 3 mg INH Q6HP PRN 09/27/18 09/27/18 sodium phosphates 1 dose NV DAILY PRN 09/27/18 09/27/18 metoprolol tartrate 50 mg PO BID 11/27/19 11/27/19 Allergies Allergy/AdvReac Type Severity Reaction Status Date / Time walnut Allergy Severe Anaphylaxis Verified 11/27/19 14:47 morphine Allergy Mild Rash Verified 11/27/19 14:47 Review of Systems ROS ROS Narrative: Narrative: She denies it fever, chest pain, shortness of breath, abdominal pain, vomiting, worsening dysuria. All systems ED: reviewed and negative except as stated. [facility] Narrative Patient History Narrative: Narrative: Medical/Surgical/Family History All Active Problems (Updated 09/18/20 @ 18:01 by Gelacio Hickman PA-C) Pneumonia (Acute) Hypoxia (Acute) Hypotension (Acute) SOB (shortness of breath) (Acute) Right lower lobe pneumonia (Acute) Skin abnormalities (Chronic) Sepsis (Acute) Acute renal failure (Acute) Panniculitis (Acute) SHERRY (acute kidney injury) (Acute) Acute hyperkalemia (Acute) History of echocardiogram (Chronic) HCC (hepatocellular carcinoma) (Chronic) Morbid (severe) obesity due to excess calories (Chronic) Type 2 diabetes mellitus without complications (Chronic) Closed displaced supracondylar fracture with intracondylar extension of lower end of femur with routine healing (Chronic) End stage renal disease (Chronic) Hypertension, essential (Chronic) Closed displaced trimalleolar fracture of right lower leg with routine healing (Chronic) Hematuria (Chronic) Ankle sprain and strain (Acute) Atrial fibrillation (Acute) Atrial fibrillation with rapid ventricular response (Acute) -donor kidney transplant recipient (Chronic) Diabetes mellitus following renal transplant (Chronic) 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) Chronic kidney disease, stage III (moderate) (Chronic) History of shingles (Chronic) Blind (Chronic) Obstructive sleep apnea (Chronic) Right hip pain (Chronic) Venous insufficiency (Chronic) Non-pressure chronic ulcer left lower leg, limited to breakdown skin (Chronic) Lymphedema (Chronic) 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) Mixed hyperlipidemia (Chronic) Hypothyroidism (Chronic) Skin cancer (Chronic) Allergic rhinitis (Chronic) Osteoarthritis (Chronic) Gout (Chronic) Herpes zoster (Chronic) Hypercholesterolemia (Chronic) Hypertension (Chronic) Obesity (Chronic) Fall (Chronic) Multiple contusions (Chronic) Medical History Allergic rhinitis Blind Closed displaced supracondylar fracture with intracondylar extension of lower end of femur with routine healing Closed displaced trimalleolar fracture of right lower leg with routine healing End stage renal disease Gout Gout due to renal impairment of multiple sites HCC (hepatocellular carcinoma) Hematuria Herpes zoster Hidradenitis suppurativa History of echocardiogram EF 75% History of shingles Hypercholesterolemia Hypertension Hypertension, essential Hypothyroidism Lymphedema Mixed hyperlipidemia Morbid (severe) obesity due to excess calories Non-pressure chronic ulcer left lower leg, limited to breakdown skin Obesity Obstructive sleep apnea Osteoarthritis Right hip pain Skin cancer Type 2 diabetes mellitus without complications Venous insufficiency Surgical History H/O sigmoidoscopy (06/12/18) History of open reduction and internal fixation (ORIF) procedure (05/28/18) Left supracondylar intercondylar distal femur fracture, right trimalleolar ankle fracture and right syndesmosis right ankle Kidney transplant recipient x2 1992 & 1993 S/P aneurysm repair (~1992) S/P PICC central line placement (06/02/18) Status post clamping of cerebral aneurysm Family History Father Heart disease Myocardial infarction Mother Hx of CABG Grandmother Diabetes Paternal Social History Smoking Status: Never smoker Alcohol Intake Frequency: holiday/special occasion only Substance Use: does not use Exam Narrative Narrative: Narrative: General Limitations: no limitations Head Head: Present atraumatic Eye Eye: Present PERRL and EOMI Respiratory Respiratory: Present other (Bilateral lower lobe Rales. Without complaints of shortness of breath productive cough fever or chest pain I believe this is most likely secondary to her congestive heart failure.) Cardiovascular Cardiovascular: Present regular rate, normal rhythm and other (Grade 2 systolic murmur) Adbominal Abdominal: Present other (Soft nontender no guarding no rebound tenderness.) Back Back: Present other (No CVA tenderness bilaterally) Psychiatric Psychiatric: Present anxious Skin Skin: Present warm (WNL) and dry Course Vital Signs Vital signs: Vital Signs Temperature 98.7 F 09/18/20 14:01 Pulse Rate 79 09/18/20 14:01 Respiratory Rate 20 09/18/20 14:01 Blood Pressure 134/99 09/18/20 14:01 Temperature 98.7 F 09/18/20 14:01 Pulse Rate 72 09/18/20 16:47 Respiratory Rate 20 09/18/20 14:01 Blood Pressure 136/74 09/18/20 16:47 Pulse Oximetry (%) 93 09/18/20 16:47 MDM MDM Narrative Medical decision making narrative: Narrative: Since patient's symptoms are improving but she is worried about her kidney function we will get CBC CMP and a UA as well as ordered a urine culture. Patient reports prior creatinine was 1 about a month ago and now it is 2.5 and she is hyperkalemic. We will give calcium gluconate and 5 IV regular insulin and 1 amp D50. EKG showed no hyperacute T waves or widening of QRS or ST segment elevations. We will admit her for acute kidney injury and hyperkalemia. Spoke with the hospitalist who agreed to admit the patient for observation and who thinks that this SHERRY is most likely due to the Bactrim. Lab Data Result diagrams: 09/18/20 15:14 09/18/20 15:13 Labs: Lab Results 09/18/20 09/18/20 09/18/20 Range/Units 14:51 15:13 15:14 WBC 6.3 (4.5-11.0) K/mcL RBC 4.40 (4.00-5.20) M/mcL Hgb 11.8 L (12.0-15.0) g/dL Hct 39.1 (36.0-48.0) % MCV 88.9 (80.0-100.0) fL MCH 26.8 (26.0-34.0) pg MCHC 30.2 L (31.0-36.0) g/dL RDW 15.2 H (11.5-14.5) % Plt Count 269 (140-440) K/mcL MPV 9.2 (7.4-10.4) fL Neut % (Auto) 78.6 H (38.0-78.0) % Lymph % (Auto) 16.8 (15.0-49.0) % [place] % (Auto) 3.8 (1.0-12.0) % Eos % (Auto) 0.3 (0.0-7.0) % Baso % (Auto) 0.5 (0.0-2.0) % Lymph # (Auto) 1.06 L (1.50-4.80) K/mcL [place] # (Auto) 0.24 (0.10-0.90) K/mcL Eos # (Auto) 0.02 (0.00-0.70) K/mcL Baso # (Auto) 0.03 (0.00-0.20) K/mcL Absolute Neutrophils 4.96 (1.80-8.00) K/mcL Sodium 129 L (133-145) mmol/L Potassium 5.6 H (3.3-5.1) mmol/L Chloride 91 L (96-108) mmol/L Carbon Dioxide 28 (22-30) mmol/L Anion Gap 10.0 (8.0-16.0) BUN 48 H (8-23) mg/dL Creatinine 2.5 H (0.6-1.1) mg/dL GFR Calculation 19 Glucose 142 H (70-105) mg/dL Calcium 8.3 L (8.6-10.4) mg/dL Total Bilirubin 0.3 (0.1-1.0) mg/dL AST 7 (<32) U/L ALT < 5 (<40) U/L Alkaline Phosphatase 59 (39-117) U/L Total Protein 6.2 (5.9-8.4) gm/dL Albumin 2.7 L (3.2-5.2) gm/dL Globulin 3.5 (2.2-3.7) gm/dL Albumin/Globulin Ratio 0.8 L (1.0-2.3) Urine Color Yellow Urine Appearance Cloudy A (Clear) Urine pH 5.0 (5.0-9.0) Ur Specific [place] 1.010 (1.000-1.035) Urine Protein 30 A (Negative) mg/dL Urine Glucose (UA) Negative (Negative) mg/dL Urine Ketones Negative (Negative) mg/dL Urine Occult Blood 0.03 (Negative) mg/dL Urine Nitrate Negative (Negative) Urine Bilirubin Negative (Negative) mg/dL Urine Urobilinogen Negative mg/dL Ur Leukocyte Esterase Negative (Negative) /ug Urine RBC 2 (0-3) /hpf Urine WBC 7 H (0-4) /hpf Ur Squamous Epith Cells < 1 (0-4) /hpf Amorphous Crystals Few A (None) /hpf Urine Bacteria Few A (0) /hpf Hyaline Casts 14 H (0-2) /lph Urine Mucus Few A (None) /hpf Ur Culture Indicated? Yes EKG Data EKG #1: EKG results narrative: ECG shows normal sinus rhythm. First-degree AV block normal axis narrow QRS. No signs of regarding all forms weight or HOCM. There is no ST segment deviations or hyperacute T waves. My interpretation normal sinus Discharge Plan Patient/Caregiver Discharge Instructions Pt seen by [employer]/PA only: Yes Clinical Impression: SHERRY (acute kidney injury), Acute hyperkalemia Patient Disposition: Xfer As Outpt/Obs ([facility]) Condition: Serious Follow up with: Danay Andersen MD [Primary Care Provider] - Prescriptions: No Action allopurinol 300 mg tablet 100 mg PO QDAY RF: 0 albuterol 90 mcg/actuation aerosol 90 mcg INHALATION QDAY PRN (Reason: Shortness Of Breath) RF: 0 calcium carbonate-vitamin D3 500 mg(1,250mg) -200 unit tablet 1 tab PO BID RF: 0 sennosides [senna] 8.6 mg tablet 8.6 mg PO BID RF: 0 multivitamin tablet 1 tab PO QDAY RF: 0 methocarbamol 500 MG tablet 750 mg PO Q8 PRN (Reason: Muscle Spasm) RF: 0 insulin glargine 1 UNIT/0.01 ML unit 20 unit SQ HS RF: 0 polyethylene glycol 3350 [Miralax] 17 GM packet 17 gm PO HS RF: 0 prednisone 5 MG tablet 5 mg PO DAILY RF: 0 hydrocodone-acetaminophen 1 TAB tablet 1 - 2 tab PO Q4H PRN (Reason: Pain) RF: 0 mycophenolate mofetil 500 MG tablet 500 mg PO TID RF: 0 levothyroxine 100 MCG tablet 100 mcg PO DAILY RF: 0 lisinopril 10 MG tablet 10 mg PO DAILY RF: 0 ergocalciferol (vitamin D2) 50,000 UNIT capsule 50,000 unit PO WEEKLY RF: 0 warfarin 1 MG tablet 2 mg PO DAILY RF: 0 ondansetron 4 MG tablet 4 mg SL Q6HP PRN (Reason: Nausea) RF: 0 cyclosporine modified 50 MG capsule 75 mg PO Q12 RF: 0 ipratropium-albuterol 3 ML solution for nebulization 0.5 - 3 mg INH Q6HP PRN (Reason: Shortness Of Breath) RF: 0 sodium phosphates 1 DOSE enema 1 dose NV DAILY PRN (Reason: Constipation) RF: 0 Dulcolax 10 mg [place] DAILY PRN (Reason: Constipation) RF: 0 Milk of Magnesia 30 ml PO DAILY PRN (Reason: Constipation) RF: 0 insulin lispro 1 UNIT/0.01 ML unit 3 units SQ DAILY RF: 0 metoprolol tartrate 25 MG tablet 50 mg PO BID RF: 0
[2020-09-18] MEDS ORDERED: METOCLOPRAMIDE 10 MG TABLET PO ONE (14:23)
[2020-09-18 15:39] LABS: Appearance,Urine CLOUDY (Clear); Bacteria,Urine FEW /hpf (0); Bilirubin,Urine Negative (Negative); Color,Urine YELLOW; Culture Indicated,Urine Yes; Glucose,Urine (UA) Negative (Negative); Ketones,Urine Negative (Negative); Leukocyte Esterase,Urine Negative /ug (Negative); Mucus,Urine FEW /hpf; Nitrate,Urine Negative (Negative); Protein,Urine 30 mg/dL (Negative); Urine Amorphous Crystals FEW /hpf; Urine Blood 0.03 mg/dL (Negative); Urine Hyaline Cast 14 /lph (0-2); Urine RBC 2 /hpf (0-3); Urine Squamous Epithelial Cell < 1 /hpf (0-4); Urine WBC 7 /hpf (0-4); Urobilinogen,Urine Negative
[2020-09-18 16:06] LABS: Basophils # (Auto) 0.03 K/mcL (0.00-0.20); Basophils % (Auto) 0.5 % (0.0-2.0); Eosinophils # (Auto) 0.02 K/mcL (0.00-0.70); Eosinophils % (Auto) 0.3 % (0.0-7.0); Hematocrit 39.1 % (36.0-48.0); Hemoglobin 11.8 g/dL (12.0-15.0); Lymphocytes # (Auto) 1.06 K/mcL (1.50-4.80); Lymphocytes % (Auto) 16.8 % (15.0-49.0); Mean Cell Volume 88.9 fL (80.0-100.0); Mean Corpuscular HGB Conc 30.2 g/dL (31.0-36.0); Mean Platelet Volume 9.2 fL (7.4-10.4); Monocytes # (Auto) 0.24 K/mcL (0.10-0.90); Monocytes % (Auto) 3.8 % (1.0-12.0); Neutrophils % (Auto) 78.6 % (38.0-78.0); Platelet Count 269 K/mcL (140-440); Red Cell Distribution Width 15.2 % (11.5-14.5); WBC 6.3 K/mcL (4.5-11.0)
[2020-09-18 16:33] LABS: ALT/SGPT < 5 U/L (<40); AST/SGOT 7 U/L (<32); Albumin 2.7 gm/dL (3.2-5.2); Albumin/Globulin Ratio 0.8 (1.0-2.3); Alkaline Phosphatase 59 U/L (39-117); Bilirubin,Total 0.3 mg/dL (0.1-1.0); Blood Urea Nitrogen 48 mg/dL (8-23); Calcium 8.3 mg/dL (8.6-10.4); Carbon Dioxide 28 mmol/L (22-30); Chloride 91 mmol/L (96-108); Globulin 3.5 gm/dL (2.2-3.7); Glomerular Filtration Rate 19; Glucose 142 mg/dL (70-105)
[2020-09-18] MEDS ORDERED: CALCIUM GLUCONATE 4.65 MEQ in DEXTROSE 5% IN WATER 50 ML IV ONE (16:52)
[2020-09-18] MEDS ORDERED: INSULIN REGULAR, HUMAN 1 UNIT/0.01 ML UNIT IV ONE (16:52)
[2020-09-18] MEDS ORDERED: DEXTROSE 50% 50 ML SYRINGE IV ONE (16:52)
--- NOTE | 2020-09-18 18:52 | Nephrology Consult Note ---
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 Available labs in our EMR suggest progressive decline in GFR since September 2018. At that time she was seen in the hospital by Dr. Charles, diagnosed with right lower lobe pneumonia and transferred to [facility]. As shown in the creatinine below, not much information on her GFR, specifically I do not know if she ever returned to her baseline serum creatinine 1.2 mg/dL. As outlined in the emergency department note, had problems with" UT Is" for the past 6 months and has been treated with a variety of antibiotics. Most recent Bactrim. Excerpts of data recovered from [facility] EMR is as follows: Date Serum Cr February 28, 2020 0.9 mg/dl February 21, 2020 1.2 February 17, 2020 1.8 February 14, 2020 2.2 January 29, 2020 1.7 January 09, 2020 1.0 December 29, 2019 2.0 December 11, 2019 1.2 November 27, 2019 3.8 October 23, 2018 2.4 September 27, 2018 1.2 May 28, 2018 1.8 March 08, 2018 1.1 January 15, 2017 1.1 April 03, 2016 1.0 70-year-old female presents emergency department via EMS with concerns of UTI and worrying about her kidneys. She has been battling a urinary tract infection for the last 6 months or so and did have urosepsis where she had to go to [facility] for treatment. She is worried and want stay on top of it. About 2 weeks ago she had been off antibiotics but then she started to develop dysuria and felt like she was not producing very much urine. On September 14 her primary care provider [address] Andersen called in Bactrim and did not get a urine culture since the patient was unable to urinate. Since she started the antibiotics the dysuria has improved and she states that she has been showing improvement with urine production as well. She is mostly concerned about her kidneys since she had a kidney transplant 20+ years ago. She does have chronic nausea and it did take Zofran about an hour prior to arrival at emergency department but states that she still does have some nausea in the emergency department she denies any new or worsening symptoms including headache, fever, chest pain, shortness of breath, abdominal pain, vomiting." Vital Signs Temp Pulse Resp BP Pulse Ox 09/18/20 18:46 72 21 134/67 90 09/18/20 18:31 69 18 157/132 96 09/18/20 18:16 72 16 162/120 92 09/18/20 18:02 73 20 162/63 90 09/18/20 17:46 89 15 170/149 91 09/18/20 17:31 65 17 164/134 92 09/18/20 17:16 68 18 149/72 91 09/18/20 17:01 67 154/66 93 09/18/20 16:47 72 136/74 93 09/18/20 16:31 71 146/97 92 09/18/20 16:17 64 147/85 92 09/18/20 16:01 65 149/77 94 09/18/20 15:46 65 155/59 91 09/18/20 15:31 83 144/77 91 09/18/20 15:16 69 145/69 92 09/18/20 15:01 67 148/62 90 09/18/20 14:46 71 134/67 83 L 09/18/20 14:42 68 140/65 93 09/18/20 14:01 37.1 C 79 20 134/99 Intake and Output 09/18/20 09/18/20 09/18/20 05:59 13:59 21:59 Intake Total 60 Balance 60 Intake: IV 60 Calcium Gluconate 4.65 Meq In 60 Dextrose 5% in Water 50 ml @ 100 mls/hr IV ONCE ONE Rx#: [id number] Other: Urine Appearance Fem Cath Cloudy Urine Color Fem Cath Pale Weight 147.418 kg Patient Weight Laboratory Last Values WBC 6.3 K/mcL (4.5-11.0) 09/18/20 15:14 RBC 4.40 M/mcL (4.00-5.20) 09/18/20 15:14 Hgb 11.8 g/dL (12.0-15.0) L 09/18/20 15:14 Hct 39.1 % (36.0-48.0) 09/18/20 15:14 MCV 88.9 fL (80.0-100.0) 09/18/20 15:14 MCH 26.8 pg (26.0-34.0) 09/18/20 15:14 MCHC 30.2 g/dL (31.0-36.0) L 09/18/20 15:14 RDW 15.2 % (11.5-14.5) H 09/18/20 15:14 Plt Count 269 K/mcL (140-440) 09/18/20 15:14 MPV 9.2 fL (7.4-10.4) 09/18/20 15:14 Neut % (Auto) 78.6 % (38.0-78.0) H 09/18/20 15:14 Lymph % (Auto) 16.8 % (15.0-49.0) 09/18/20 15:14 Chase % (Auto) 3.8 % (1.0-12.0) 09/18/20 15:14 Eos % (Auto) 0.3 % (0.0-7.0) 09/18/20 15:14 Baso % (Auto) 0.5 % (0.0-2.0) 09/18/20 15:14 Lymph # (Auto) 1.06 K/mcL (1.50-4.80) L 09/18/20 15:14 Chase # (Auto) 0.24 K/mcL (0.10-0.90) 09/18/20 15:14 Eos # (Auto) 0.02 K/mcL (0.00-0.70) 09/18/20 15:14 Baso # (Auto) 0.03 K/mcL (0.00-0.20) 09/18/20 15:14 Absolute Neutrophils 4.96 K/mcL (1.80-8.00) 09/18/20 15:14 Sodium 129 mmol/L (133-145) L 09/18/20 15:13 Potassium 5.6 mmol/L (3.3-5.1) H 09/18/20 15:13 Chloride 91 mmol/L (96-108) L 09/18/20 15:13 Carbon Dioxide 28 mmol/L (22-30) 09/18/20 15:13 Anion Gap 10.0 (8.0-16.0) 09/18/20 15:13 BUN 48 mg/dL (8-23) H 09/18/20 15:13 Creatinine 2.5 mg/dL (0.6-1.1) H 09/18/20 15:13 GFR Calculation 19 09/18/20 15:13 Glucose 142 mg/dL (70-105) H 09/18/20 15:13 Calcium 8.3 mg/dL (8.6-10.4) L 09/18/20 15:13 Total Bilirubin 0.3 mg/dL (0.1-1.0) 09/18/20 15:13 AST 7 U/L (<32) 09/18/20 15:13 ALT < 5 U/L (<40) 09/18/20 15:13 Alkaline Phosphatase 59 U/L (39-117) 09/18/20 15:13 Total Protein 6.2 gm/dL (5.9-8.4) 09/18/20 15:13 Albumin 2.7 gm/dL (3.2-5.2) L 09/18/20 15:13 Globulin 3.5 gm/dL (2.2-3.7) 09/18/20 15:13 Albumin/Globulin Ratio 0.8 (1.0-2.3) L 09/18/20 15:13 Urine Color Yellow 09/18/20 14:51 Urine Appearance Cloudy (Clear) A 09/18/20 14:51 Urine pH 5.0 (5.0-9.0) 09/18/20 14:51 Ur Specific [place] 1.010 (1.000-1.035) 09/18/20 14:51 Urine Protein 30 mg/dL (Negative) A 09/18/20 14:51 Urine Glucose (UA) Negative mg/dL (Negative) 09/18/20 14:51 Urine Ketones Negative mg/dL (Negative) 09/18/20 14:51 Urine Occult Blood 0.03 mg/dL (Negative) 09/18/20 14:51 Urine Nitrate Negative (Negative) 09/18/20 14:51 Urine Bilirubin Negative mg/dL (Negative) 09/18/20 14:51 Urine Urobilinogen Negative mg/dL 09/18/20 14:51 Ur Leukocyte Esterase Negative /ug (Negative) 09/18/20 14:51 Urine RBC 2 /hpf (0-3) 09/18/20 14:51 Urine WBC 7 /hpf (0-4) H 09/18/20 14:51 Ur Squamous Epith Cells < 1 /hpf (0-4) 09/18/20 14:51 Amorphous Crystals Few /hpf (None) A 09/18/20 14:51 Urine Bacteria Few /hpf (0) A 09/18/20 14:51 Hyaline Casts 14 /lph (0-2) H 09/18/20 14:51 Urine Mucus Few /hpf (None) A 09/18/20 14:51 Ur Culture Indicated? Yes 09/18/20 14:51 Transplant ultrasound September 18, 2020: Left renal transplant measures 14.7 x 5.8 x 9.1 cm. No perinephric fluid. No focal intrarenal abnormality. There is no hydronephrosis. There is no free pelvic fluid. Renal vein and transplant renal artery are negative. There is no stenosis. Resistive indices are not calculated. Prevoid bladder volume measures 484 mL IMPRESSION: 1. Technically limited evaluation 2. Transplant kidney in left iliac fossa appears unchanged since 09/28/2018 Laboratory Tests 09/19/20 05:55 Sodium 132 L Potassium 5.6 H Chloride 95 L Carbon Dioxide 24 BUN 44 H Creatinine 2.3 H GFR Calculation 21 Glucose 132 H Uric Acid 5.2 Calcium 8.7 Phosphorus 4.4 Magnesium 1.8 Lactate Dehydrogenase 130 L Albumin 2.7 L Recommend holding all immunosuppressives and use Hydrocortisone 50 mg IV q12 Hr for immunosuppression. Avoid Bactrim Hydrate O/N Renal u/s to look for perinephric fluid, abscess, stones, etc. Check Cyclosporin level Check BK virus pcr both urine and serum. Calculate FeNa [place] culture tonight but no ABx unless culture driven evidence is presence If no better in 24 to 48 hrs...transfer to [facility] for higher level of care (transplant nephrology) Review of Systems All systems: reviewed and no additional remarkable complaints except as stated Review of systems: ED and Hospital medicine notes reviewd Has seen Dr Reeves for ABx choices including Merropenim for ESBL E coli and p roteus in December 2019 at [facility] Constitutional Constitutional: Present fatigue and malaise EENT Eyes: Present as per HPI Cardiovascular Cardiovascular: Present as per HPI Gastrointestinal Gastrointestinal: Present bloating Genitourinary Additional comments: States oliguria is her warning of impending decline in GFR and ?UTI Musculoskeletal Additional comments: Popping pain in left lower quadrant/flank. HAS MESH REPAIR or incision hernia at :L iliac fossa RTx site Integumentary Additional comments: Skin cancers while on immuran Neurological Neurological: Present as per HPI Psychiatric Psychiatric: Present as per HPI Endocrine Additional comments: DM Hematologic/Lymphatic Additional comments: No leukemia or lymphoma despite > 20 yrs immunosuppression PFSH PFSH All Active Problems (Updated 09/19/20 @ 11:07 by Vick Carpio MD) SHERRY (acute kidney injury) (Acute) Acute hyperkalemia (Acute) -donor kidney transplant recipient (Chronic) 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) Diabetes mellitus following renal transplant (Chronic) Hypertension, essential (Chronic) Pyuria (Acute) 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) Fall (Chronic) Multiple contusions (Chronic) Obesity (Chronic) Hypertension (Chronic) Hypercholesterolemia (Chronic) Herpes zoster (Chronic) Gout (Chronic) Osteoarthritis (Chronic) Allergic rhinitis (Chronic) Skin cancer (Chronic) Hypothyroidism (Chronic) Mixed hyperlipidemia (Chronic) Lymphedema (Chronic) Non-pressure chronic ulcer left lower leg, limited to breakdown skin (Chronic) Venous insufficiency (Chronic) Right hip pain (Chronic) Obstructive sleep apnea (Chronic) Blind (Chronic) History of shingles (Chronic) Chronic kidney disease, stage III (moderate) (Chronic) Ankle sprain and strain (Acute) Atrial fibrillation (Acute) Atrial fibrillation with rapid ventricular response (Acute) Hematuria (Chronic) Closed displaced trimalleolar fracture of right lower leg with routine healing (Chronic) End stage renal disease (Chronic) Closed displaced supracondylar fracture with intracondylar extension of lower end of femur with routine healing (Chronic) Type 2 diabetes mellitus without complications (Chronic) Morbid (severe) obesity due to excess calories (Chronic) HCC (hepatocellular carcinoma) (Chronic) History of echocardiogram (Chronic) Pneumonia (Acute) Hypoxia (Acute) Hypotension (Acute) SOB (shortness of breath) (Acute) Right lower lobe pneumonia (Acute) Skin abnormalities (Chronic) Sepsis (Acute) Acute renal failure (Acute) Panniculitis (Acute) Medical History Allergic rhinitis Blind Closed displaced supracondylar fracture with intracondylar extension of lower end of femur with routine healing Closed displaced trimalleolar fracture of right lower leg with routine healing End stage renal disease Gout Gout due to renal impairment of multiple sites HCC (hepatocellular carcinoma) Hematuria Herpes zoster Hidradenitis suppurativa History of echocardiogram EF 75% History of shingles Hypercholesterolemia Hypertension Hypertension, essential Hypothyroidism Lymphedema Mixed hyperlipidemia Morbid (severe) obesity due to excess calories Non-pressure chronic ulcer left lower leg, limited to breakdown skin Obesity Obstructive sleep apnea Osteoarthritis Right hip pain Skin cancer Type 2 diabetes mellitus without complications Venous insufficiency Surgical History H/O sigmoidoscopy (06/12/18) History of open reduction and internal fixation (ORIF) procedure (05/28/18) Left supracondylar intercondylar distal femur fracture, right trimalleolar ankle fracture and right syndesmosis right ankle Kidney transplant recipient x2 1992 & 1993 S/P aneurysm repair (~1992) S/P PICC central line placement (06/02/18) Status post clamping of cerebral aneurysm Family History Father Heart disease Myocardial infarction Mother Hx of CABG Grandmother Diabetes Paternal Social History marital status: occupational status: retired occupation: [employer] alcohol intake frequency: holiday/special occasion only substance use type: does not use MEDS/ALLERGIES Home Medications and Allergies Home Medications Medication Instructions Recorded Confirmed Type allopurinol 300 mg tablet 100 mg PO QDAY 03/29/18 09/18/20 History albuterol 90 mcg/actuation aerosol 90 mcg INHALATION QDAY PRN 05/09/18 09/27/18 History inhaler cyclosporine modified 25 mg PO BIDD 07/09/18 09/18/20 History ergocalciferol (vitamin D2) 50,000 unit PO WEEKLY 07/09/18 09/27/18 History hydrocodone-acetaminophen 1 - 2 tab PO Q4H PRN 07/09/18 09/18/20 History insulin glargine 20 unit SQ HS 07/09/18 09/27/18 History levothyroxine 100 mcg PO DAILY 07/09/18 09/18/20 History lisinopril 10 mg PO DAILY 07/09/18 11/27/19 History methocarbamol 750 mg PO Q8 PRN 07/09/18 11/27/19 History mycophenolate mofetil 500 mg PO BIDD 07/09/18 09/18/20 History ondansetron 4 mg SL Q6HP PRN 07/09/18 09/18/20 History polyethylene glycol 3350 [Miralax] 17 gm PO HS 07/09/18 09/27/18 History prednisone 5 mg PO DAILY 07/09/18 09/18/20 History warfarin 2 mg PO DAILY 07/09/18 09/27/18 History calcium carbonate 500 mg (1,250 1 tab PO BID 09/13/18 09/27/18 History mg)-vitamin D3 200 unit tablet multivitamin 1 tab PO QDAY 09/13/18 09/27/18 History sennosides 8.6 mg tablet 8.6 mg PO BID 09/13/18 09/27/18 History Dulcolax 10 mg OR DAILY PRN 09/27/18 09/27/18 History Milk of Magnesia 30 ml PO DAILY PRN 09/27/18 09/27/18 History insulin lispro 3 units SQ DAILY 09/27/18 11/27/19 History ipratropium-albuterol 0.5 - 3 mg INH Q6HP PRN 09/27/18 09/27/18 History sodium phosphates 1 dose OR DAILY PRN 09/27/18 09/27/18 History metoprolol tartrate 50 mg PO BID 11/27/19 09/18/20 History Allergies Allergy/AdvReac Type Severity Reaction Status Date / Time walnut Allergy Severe Anaphylaxis Verified 11/27/19 14:47 morphine Allergy Mild Rash Verified 11/27/19 14:47 Physical Examination Vital Signs Vital signs: Temp Pulse Resp BP Pulse Ox 37.1 C 69 18 157/132 96 09/18/20 14:01 09/18/20 18:31 09/18/20 18:31 09/18/20 18:31 09/18/20 18:31 General Appearance General appearance: obese, chronically ill and fatigue EENT EENT: ATNC, PERRL and mucous membranes dry Neck Neck: no JVD, no carotid bruit and supple Respiratory Respiratory: kyphosis and clear Cardiovascular Cardiology: mid-systolic murmur, no rub, no gallops, edema, regular rhythm, no rmal S1 and normal S2 Gastrointestinal Gastrointestinal: normoactive bowel sounds, no tenderness (Not tender in left iliac fossa where her transplant is), no guarding and hepatomegaly Integumentary Integumentary: hyperpigmentation and hyperkeratosis Neurologic Neurologic: no focal deficit, asterixis (Myoclonus that the patient says occurs when her potassium is high), strength 5/5 (3+/5 bilaterally) and CN 3-12 intact Musculoskeletal Musculoskeletal: decreased ROM Psychiatric Psychiatric: mood/affect appropriate Results Lab Results Result Diagrams: 09/18/20 15:14 09/19/20 05:55 Lab results: Most recent lab results Calcium 8.3 mg/dL (8.6-10.4) L 09/18/20 15:13 A/P Assessment and plan (1) SHERRY (acute kidney injury): Status: Acute Comment: This patient has repeated episodes of acute renal failure over the years in the setting of the renal transplant Suspect hemodynamic issues caused by Bactrim, lisinopril and cyclosporine Infection of her [place] kidneys would be the most likely cause of pyuria and UTI as her renal transplant appears normal by ultrasound (2) ADPKD (autosomal dominant polycystic kidney disease): Assessment and plan: For starters we need to assess for hemorrhagic or infected cysts with an ultrasound, CT with and without contrast if her GFR improves Status: Chronic (3) -donor kidney transplant recipient: Assessment and plan: Her CellCept has been reduced to 500 twice a day, intentionally running a low cyclosporine level around 50, 5 mg prednisone Until we figure out what is going on with her kidneys I will hold her immunosuppression and use hydrocortisone 50 mg IV twice a day for immunosuppressive No obstruction, abscess or perinephric infection of her transplant She has had a mesh closure of an incisional hernia at the site of transplant in the left lower quadrant iliac fossa Would recommend only antibiotic therapy based on culture guidance She has had ESBL infection/sepsis treated with several weeks of meropenem under the guidance of Dr. Chaudhary at [facility] Status: Chronic (4) Gout due to renal impairment of multiple sites: Assessment and plan: We will check a urine uric acid to creatinine level and make sure there is no evidence of uric acid nephropathy Check serum uric acid level Status: Chronic (5) Acute hyperkalemia: Assessment and plan: Commonly seen with Bactrim, lisinopril, and acute decline in GFR Status: Acute (6) Diabetes mellitus following renal transplant: Status: Chronic (7) Pyuria: Assessment and plan: Urine culture Status: Acute (8) Hypertension, essential: Assessment and plan: For the time being I would hold lisinopril Check random urine protein to creatinine ratio Status: Chronic Narrative A/P Narrative: This patient has had multiple episodes of acute renal failure 1 associated with right lower lobe pneumonia when she was seen by Dr. Charles and transferred to [facility]. Now there was an association with ESBL E. coli sepsis at [facility] which may have started from the ulcer on her abdominal pannus and was treated with several weeks of meropenem Then there is this mystery of recurrent urinary tract infections the date of which appears to be [facility] in [place], but this was the reason empiric Bactrim was started. If this is just hemodynamic problems associated with the trifecta of lisinopril, Bactrim, and cyclosporine... I would anticipate improvement in her GFR over the next 72 hours. Stay the course as outlined above and complete the lab and radiograph database Time Spent With Patient Time: Total time spent is greater than 50% in coordination of care (as do cumented) at patient's floor/unit and/or counseling patient: Total time spent with greater than 50% in coordination of care (as documented) at patient's floor/unit and/or counseling patient:: Greater than 35 minutes
--- NOTE | 2020-09-18 19:00 | Internal Med History&Physical ---
HPI History of Present Illness Patient information: Note initiated : 09/18/20 at 6:34 pm Service Date, if different from initiated Date: [] Patient: Marialuisa Champagne 70 y/o F admitted on for UTI. Chief Complaint: [] History of present illness: Ms. 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 The patient, she has been on Bactrim for UTI a couple times in the last weeks. The urine culture is not available for review you. The patient says that she initially developed dysuria treated with antibiotic but later switched to Bactrim due to urine culture results. Dysuria improved the patient completed the first course of Bactrim. The patient later developed dysuria once again and was restarted on Bactrim, the patient said that was on 09/14/2020. In the ED, the patient had a creatinine of 2.5 and potassium of 5.6. The patient says that creatinine normally is about 1. In our records, the patient's recent creatinines are significantly higher than her reported baseline. Vitals are stable in the ED, there is no evidence of an acute infectious process or other cause of acute kidney injury. Suspect the reason for SHERRY is Bactrim therapy on the background of VIRY inhibitor and cyclosporine medication use in a patient with a renal transplant. Review of systems Constitutional: no fever, fatigue, or weight loss Eyes: no vision changes or pain Cardiovascular: no chest pain, no palpitations Respiratory: no cough or dyspnea Gastrointestinal: no abdominal pain, no nausea, vomiting, or diarrhea Genitourinary: Positive for decreased urine output and dysuria. Musculoskeletal: no arthralgia or myalgia Integumentary: Positive for abdominal wound. Neurological: no focal weakness or numbness Psychiatric: no anxiety or depression Physical exam Head: Atraumatic, normal inspection. Eyes: normal appearance, no scleral icterus. Neck: full ROM Respiratory: no respiratory distress. Cardiovascular: normal rate and rhythm, S1, S2. GI/Abdominal: Obesely distended, soft, nontender, no guarding. Extremities: Lymphedema in bilateral lower extremities. Neurological: CN II-XII intact, intact motor, intact sensation. Psychiatric: normal mood. Skin: Chronic appearing wounds in abdominal pannus. PFSH PFSH All Active Problems (Updated 09/18/20 @ 18:01 by Gelacio Hickman PA-C) Pneumonia (Acute) Hypoxia (Acute) Hypotension (Acute) SOB (shortness of breath) (Acute) Right lower lobe pneumonia (Acute) Skin abnormalities (Chronic) Sepsis (Acute) Acute renal failure (Acute) Panniculitis (Acute) SHERRY (acute kidney injury) (Acute) Acute hyperkalemia (Acute) History of echocardiogram (Chronic) HCC (hepatocellular carcinoma) (Chronic) Morbid (severe) obesity due to excess calories (Chronic) Type 2 diabetes mellitus without complications (Chronic) Closed displaced supracondylar fracture with intracondylar extension of lower end of femur with routine healing (Chronic) End stage renal disease (Chronic) Hypertension, essential (Chronic) Closed displaced trimalleolar fracture of right lower leg with routine healing (Chronic) Hematuria (Chronic) Ankle sprain and strain (Acute) Atrial fibrillation (Acute) Atrial fibrillation with rapid ventricular response (Acute) -donor kidney transplant recipient (Chronic) Diabetes mellitus following renal transplant (Chronic) 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) Chronic kidney disease, stage III (moderate) (Chronic) History of shingles (Chronic) Blind (Chronic) Obstructive sleep apnea (Chronic) Right hip pain (Chronic) Venous insufficiency (Chronic) Non-pressure chronic ulcer left lower leg, limited to breakdown skin (Chronic) Lymphedema (Chronic) 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) Mixed hyperlipidemia (Chronic) Hypothyroidism (Chronic) Skin cancer (Chronic) Allergic rhinitis (Chronic) Osteoarthritis (Chronic) Gout (Chronic) Herpes zoster (Chronic) Hypercholesterolemia (Chronic) Hypertension (Chronic) Obesity (Chronic) Fall (Chronic) Multiple contusions (Chronic) Medical History Allergic rhinitis Blind Closed displaced supracondylar fracture with intracondylar extension of lower end of femur with routine healing Closed displaced trimalleolar fracture of right lower leg with routine healing End stage renal disease Gout Gout due to renal impairment of multiple sites HCC (hepatocellular carcinoma) Hematuria Herpes zoster Hidradenitis suppurativa History of echocardiogram EF 75% History of shingles Hypercholesterolemia Hypertension Hypertension, essential Hypothyroidism Lymphedema Mixed hyperlipidemia Morbid (severe) obesity due to excess calories Non-pressure chronic ulcer left lower leg, limited to breakdown skin Obesity Obstructive sleep apnea Osteoarthritis Right hip pain Skin cancer Type 2 diabetes mellitus without complications Venous insufficiency Surgical History H/O sigmoidoscopy (06/12/18) History of open reduction and internal fixation (ORIF) procedure (05/28/18) Left supracondylar intercondylar distal femur fracture, right trimalleolar ankle fracture and right syndesmosis right ankle Kidney transplant recipient x2 1992 & 1993 S/P aneurysm repair (~1992) S/P PICC central line placement (06/02/18) Status post clamping of cerebral aneurysm Family History Father Heart disease Myocardial infarction Mother Hx of CABG Grandmother Diabetes Paternal Social History (Updated 09/13/18 @ 13:25 by Felecia Ford) marital status: 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 [employer] alcohol intake frequency: holiday/special occasion only substance use type: does not use MEDS/ALLERGIES Home Medications and Allergies Home Medications Medication Instructions Recorded Confirmed Type allopurinol 300 mg tablet 100 mg PO QDAY 03/29/18 11/27/19 History albuterol 90 mcg/actuation aerosol 90 mcg INHALATION QDAY PRN 05/09/18 09/27/18 History inhaler cyclosporine modified 75 mg PO Q12 07/09/18 11/27/19 History ergocalciferol (vitamin D2) 50,000 unit PO WEEKLY 07/09/18 09/27/18 History hydrocodone-acetaminophen 1 - 2 tab PO Q4H PRN 07/09/18 09/27/18 History insulin glargine 20 unit SQ HS 07/09/18 09/27/18 History levothyroxine 100 mcg PO DAILY 07/09/18 11/27/19 History lisinopril 10 mg PO DAILY 07/09/18 11/27/19 History methocarbamol 750 mg PO Q8 PRN 07/09/18 11/27/19 History mycophenolate mofetil 500 mg PO TID 07/09/18 11/27/19 History ondansetron 4 mg SL Q6HP PRN 07/09/18 11/27/19 History polyethylene glycol 3350 [Miralax] 17 gm PO HS 07/09/18 09/27/18 History prednisone 5 mg PO DAILY 07/09/18 11/27/19 History warfarin 2 mg PO DAILY 07/09/18 09/27/18 History calcium carbonate 500 mg (1,250 1 tab PO BID 09/13/18 09/27/18 History mg)-vitamin D3 200 unit tablet multivitamin 1 tab PO QDAY 09/13/18 09/27/18 History sennosides 8.6 mg tablet 8.6 mg PO BID 09/13/18 09/27/18 History Dulcolax 10 mg NJ DAILY PRN 09/27/18 09/27/18 History Milk of Magnesia 30 ml PO DAILY PRN 09/27/18 09/27/18 History insulin lispro 3 units SQ DAILY 09/27/18 11/27/19 History ipratropium-albuterol 0.5 - 3 mg INH Q6HP PRN 09/27/18 09/27/18 History sodium phosphates 1 dose NJ DAILY PRN 09/27/18 09/27/18 History metoprolol tartrate 50 mg PO BID 11/27/19 11/27/19 History Allergies Allergy/AdvReac Type Severity Reaction Status Date / Time walnut Allergy Severe Anaphylaxis Verified 11/27/19 14:47 morphine Allergy Mild Rash Verified 11/27/19 14:47 EXAM Constitutional Vitals: Temp Pulse Resp BP Pulse Ox 98.7 F 69 18 157/132 96 09/18/20 14:01 09/18/20 18:31 09/18/20 18:31 09/18/20 18:31 09/18/20 18:31 DATA Data Completed and Pending Labs: Labs from last 24 hours 09/18/20 09/18/20 09/18/20 15:14 15:13 14:51 WBC 6.3 RBC 4.40 Hgb 11.8 L Hct 39.1 MCV 88.9 MCH 26.8 MCHC 30.2 L RDW 15.2 H Plt Count 269 MPV 9.2 Neut % (Auto) 78.6 H Lymph % (Auto) 16.8 [place] % (Auto) 3.8 Eos % (Auto) 0.3 Baso % (Auto) 0.5 Lymph # (Auto) 1.06 L [place] # (Auto) 0.24 Eos # (Auto) 0.02 Baso # (Auto) 0.03 Absolute Neutrophils 4.96 Sodium 129 L Potassium 5.6 H Chloride 91 L Carbon Dioxide 28 Anion Gap 10.0 BUN 48 H Creatinine 2.5 H GFR Calculation 19 Glucose 142 H Calcium 8.3 L Total Bilirubin 0.3 AST 7 ALT < 5 Alkaline Phosphatase 59 Total Protein 6.2 Albumin 2.7 L Globulin 3.5 Albumin/Globulin Ratio 0.8 L Urine Color Yellow Urine Appearance Cloudy A Urine pH 5.0 Ur Specific [place] 1.010 Urine Protein 30 A Urine Glucose (UA) Negative Urine Ketones Negative Urine Occult Blood 0.03 Urine Nitrate Negative Urine Bilirubin Negative Urine Urobilinogen Negative Ur Leukocyte Esterase Negative Urine RBC 2 Urine WBC 7 H Ur Squamous Epith Cells < 1 Amorphous Crystals Few A Urine Bacteria Few A Hyaline Casts 14 H Urine Mucus Few A Ur Culture Indicated? Yes A/P Narrative A/P Narrative: Assessment: 70 year old female with a history of hypertension, insulin-dependent DM 2, hypothyroidism, gout, renal transplant about 20 years ago for ADPKD (reported baseline creatinine about 1.2), obesity(BMI 51), chronic abdominal soft tissue wounds, nolberto lower extremity lymphedema, bedbound status, recurrent UTIs most recently treated with Bactrim admitted for acute on chronic kidney injury and hyperkalemia. Suspect this is from bactrim therapy on the background of VIRY inhibitor and Cyclosporine medications. EKG did not show any concerning findings related to hyperkalemia. No recent positive urine cultures in the available hospital records. #Acute on chronic kidney disease injury #Hyperkalemia: suspect d/t SHERRY and Bactrim #Hx of renal transplant for a ADPKD #Immunosuppressive status: Cyclosporine, CellCept, prednisone #DM II: insulin-dependent #Hypertension #Hx paroxysmal atrial fibrillation: not on anticoagulation at home #Gout #Hypothyroidism #Recurrent UTIs: most recently on Bactrim #JUVENTINO: untreated due to claustrophobia with CPAP #Chronic abdominal soft tissue wounds #Bilateral lower extremity lymphedema #Obesity: BMI 51 #Bedbound status Plan -IV fluid challenge, follow-up renal function and urine output. -Stop Bactrim, hold lisinopril, avoid nephrotoxic medications. -Repeat BMP, if potassium still elevated consider Kayexalate. -Hydrocortisone 50 mg IV Q12 hrs for transplant kidney until nephrology evaluates. -Hold home Cyclosporine, CellCept, prednisone for now. -Nephrology consulted, discussed with Dr. Carpio. Nephrology will manage home immunosuppressive medications. -Medication reconciliation w/ pharmacy then resume essential meds. -[place] and SSI. -US of transplant kidney. -Follow urine culture, review outside urine cultures. -Telemetry until hyperkalemia resolves. -Wound care for abdominal wounds, topical nystatin. -DVT ppx: heparin SQ -Code status: Full -Disposition: TBD Time Spent With Patient Time: Total time spent is greater than 50% in coordination of care (as documented) at patient's floor/unit and/or counseling patient: 75
[2020-09-18] MEDS ORDERED: 0.9 % SODIUM CHLORIDE 1,000 ML IV ONE (19:30)
[2020-09-18] MEDS ORDERED: DEXTROSE 31 GM ORAL.SUSP PO PRN (19:30)
[2020-09-18] MEDS ORDERED: DEXTROSE 50% 50 ML VIAL IV PRN (19:30)
[2020-09-18] MEDS ORDERED: ONDANSETRON 4 MG/2 ML VIAL IV PRN (19:30)
[2020-09-18] MEDS: 0.9 % SODIUM CHLORIDE 1,000 ML IV SCH ×2 (19:36→22:26)
[2020-09-18] MEDS: INSULIN GLARGINE, HUMAN 1 UNIT/0.01 ML SQ SCH (21:37)
[2020-09-18] MEDS: SENNOSIDES 1 TABLET PO SCH ×2 (21:37→22:10)
[2020-09-18] MEDS: INSULIN LISPRO 1 UNIT/0.01 ML UNIT SQ SCH (21:37)
[2020-09-18] MEDS: HEPARIN 5,000 UNIT/ML VIAL SQ SCH (21:38)
[2020-09-18] MEDS: DOCUSATE SODIUM 100 MG CAPSULE PO SCH ×2 (21:38→22:10)
[2020-09-18] MEDS: 0.9 % SODIUM CHLORIDE 10 ML SYRINGE IV SCH (21:39)
[2020-09-18] MEDS: NYSTATIN POWDER BOTTLE 15GM TOPICAL SCH (22:10)
[2020-09-18] MEDS: HYDROCORTISONE SOD SUCC 100 MG VIAL IV SCH (22:15)
--- NOTE | 2020-09-19 05:48 | Ultrasound Report ---
INDICATION: Acute kidney injury TECHNIQUE: Fontanez scale and color flow Doppler spectral imaging COMPARISON: Previous examination dated 09/28/2018 FINDINGS: Limited evaluation due to patient's body habitus Transplant kidney in the left iliac fossa. Left renal transplant measures 14.7 x 5.8 x 9.1 cm. No perinephric fluid. No focal intrarenal abnormality. There is no hydronephrosis. There is no free pelvic fluid. Renal vein and transplant renal artery are negative. There is no stenosis. Resistive indices are not calculated. Prevoid bladder volume measures 484 mL IMPRESSION: 1. Technically limited evaluation 2. Transplant kidney in left iliac fossa appears unchanged since 09/28/2018. Interpreted and Authenticated by: Johnnie Wiggins 09/19/20
[2020-09-19] MEDS: 0.9 % SODIUM CHLORIDE 1,000 ML IV SCH ×3 (05:51→17:01)
[2020-09-19] MEDS: 0.9 % SODIUM CHLORIDE 10 ML SYRINGE IV SCH ×3 (05:52→22:15)
[2020-09-19 07:41] LABS: ALT/SGPT < 5 U/L (<40); AST/SGOT 6 U/L (<32); Albumin 2.7 gm/dL (3.2-5.2); Albumin/Globulin Ratio 0.7 (1.0-2.3); Alkaline Phosphatase 62 U/L (39-117); Bilirubin,Direct < 0.2 mg/dL (0-0.3); Bilirubin,Total 0.2 mg/dL (0.1-1.0); Blood Urea Nitrogen 44 mg/dL (8-23); Calcium 8.7 mg/dL (8.6-10.4); Carbon Dioxide 24 mmol/L (22-30); Chloride 95 mmol/L (96-108); Glomerular Filtration Rate 21; Glucose 132 mg/dL (70-105); Lactate Dehydrogenase 130 U/L (135-225); Phosphorous 4.4 mg/dL (2.5-4.5); Triglycerides 193 mg/dL (<150); Uric Acid 5.2 mg/dL (2.5-8.0)
[2020-09-19] MEDS: INSULIN LISPRO 1 UNIT/0.01 ML UNIT SQ SCH ×4 (08:13→21:27)
[2020-09-19] MEDS ORDERED: 0.9 % SODIUM CHLORIDE 1,000 ML IV ONE (08:22)
[2020-09-19] MEDS ORDERED: SODIUM POLYSTYRENE SULFONATE 15 GM/60 ML SUSPENSION PO ONE (08:27)
[2020-09-19] MEDS: DOCUSATE SODIUM 100 MG CAPSULE PO SCH ×2 (08:54→21:27)
[2020-09-19] MEDS: HEPARIN 5,000 UNIT/ML VIAL SQ SCH ×2 (08:54→22:14)
[2020-09-19] MEDS: HYDROCORTISONE SOD SUCC 100 MG VIAL IV SCH ×2 (08:54→22:15)
[2020-09-19] MEDS: NYSTATIN POWDER BOTTLE 15GM TOPICAL SCH ×2 (08:55→22:19)
--- NOTE | 2020-09-19 10:23 | Internal Med Progress Note ---
SUBJECTIVE Subjective Patient information: Note initiated : 09/19/20 at 10:14 am Service Date, if different from initiated Date: [] Patient: Marialuisa Champagne 70 y/o F admitted on 09/18/20 for UTI. Chief Complaint: [] Interval history: Ms. 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 The patient, she has been on Bactrim for UTI a couple times in the last weeks. The urine culture is not available for review you. The patient says that she initially developed dysuria treated with antibiotic but later switched to Bactrim due to urine culture results. Dysuria improved the patient completed the first course of Bactrim. The patient later developed dysuria once again and was restarted on Bactrim, the patient said that was on 09/14/2020. In the ED, the patient had a creatinine of 2.5 and potassium of 5.6. The patient says that creatinine normally is about 1. In our records, the patient's recent creatinines are significantly higher than her reported baseline. Vitals are stable in the ED, there is no evidence of an acute infectious process or other cause of acute kidney injury. Suspect the reason for SHERRY is Bactrim therapy on the background of VIRY inhibitor and cyclosporine medication use in a patient with a renal transplant. 4/ Improved urine output after IV fluid challenge but creatinine minimally improved, potassium still elevated. Continue IV fluid, Kayexalate given with repeat BMP today to ensure potassium decreasing. Review of outside urine culture that grew ESBL E coli grown in 08/24/20. This was treated with oral Bactrim outpatient. UA does not look like UTI. Urine culture is pending. Monitoring off antibiotics for now. If patient develops a fever or leukocytosis will cover with Meropenem. Head: Atraumatic, normal inspection. Eyes: normal appearance, no scleral icterus. Neck: full ROM Respiratory: no respiratory distress. Cardiovascular: normal rate and rhythm, S1, S2. GI/Abdominal: soft, nontender, no guarding. Extremities: full range of motion, nontender. Neurological: CN II-XII intact, intact motor, intact sensation. Psychiatric: normal mood. Constitutional Vitals: Vital Signs Temp Pulse Resp BP Pulse Ox 97.8 F 78 16 156/68 95 09/19/20 08:00 09/19/20 08:00 09/19/20 08:00 09/19/20 08:00 09/19/20 08:00 Period Temp Pulse Resp BP Sys/Howe Pulse Ox Last 24 Hr 97.8 F-98.8 F 64-89 114-170/46-149 83-96 Intake and Output 09/18/20 09/19/20 09/19/20 21:59 05:59 13:59 Intake Total 60 1100 1017 Output Total 1 Balance 60 1099 1017 Weight 153.586 kg Intake & Output: Intake & Output 09/18/20 09/19/20 09/19/20 21:59 05:59 13:59 Intake Total 60 1100 1017 Output Total 1 Balance 60 1099 1017 Weight 153.586 kg Intake: IV 60 1000 1017 Sodium Chloride 0.9% 1,000 ml @ 1000 1017 100 mls/hr IV .Q10H [facility] Rx#: [id number] Calcium Gluconate 4.65 Meq In 60 Dextrose 5% in Water 50 ml @ 100 mls/hr IV ONCE ONE Rx#: [id number] Oral 100 Output: # of times incontinent of urine 1 Other: Meal Breakfast Percent of Meal Consumed 50% Feeding Ability Independent Urine Appearance Fem Cath Cloudy Urine Color Fem Cath Pale OBJ DATA Labs CBC & Chem 7: 09/18/20 15:14 09/19/20 05:55 Labs: Abnormal Lab Results 09/19/20 09/18/20 09/18/20 05:55 15:14 15:13 Hgb 11.8 L MCHC 30.2 L RDW 15.2 H Neut % (Auto) 78.6 H Lymph # (Auto) 1.06 L Sodium 132 L 129 L Potassium 5.6 H 5.6 H Chloride 95 L 91 L BUN 44 H 48 H Creatinine 2.3 H 2.5 H Glucose 132 H 142 H Calcium 8.3 L Lactate Dehydrogenase 130 L Albumin 2.7 L 2.7 L Globulin 4.0 H Albumin/Globulin Ratio 0.7 L 0.8 L Triglycerides 193 H Urine Appearance Urine Protein Urine WBC Amorphous Crystals Urine Bacteria Hyaline Casts Urine Mucus Ur Random Chloride 09/18/20 09/18/20 14:51 14:51 Hgb MCHC RDW Neut % (Auto) Lymph # (Auto) Sodium Potassium Chloride BUN Creatinine Glucose Calcium Lactate Dehydrogenase Albumin Globulin Albumin/Globulin Ratio Triglycerides Urine Appearance Cloudy A Urine Protein 30 A Urine WBC 7 H Amorphous Crystals Few A Urine Bacteria Few A Hyaline Casts 14 H Urine Mucus Few A Ur Random Chloride 39 L Meds: Medications Dextrose (Dextrose 50% 50 Ml Vial) 0 ml IV UD PRN PRN Reason: Hypoglycemia Diagnostic Test (Pha) (Accu-Chek 1 Each Strip) 1 each FS [facility] Last Admin: 09/19/20 08:09 Dose: 1 each Documented by: Docusate Sodium (Docusate Sodium 100 Mg Capsule) 100 mg PO BID [facility] Last Admin: 09/19/20 08:54 Dose: 100 mg Documented by: Glucose (Dextrose 31 Gm Oral.Susp) 15 gm PO PRN PRN PRN Reason: Hypoglycemia Heparin Sodium (Porcine) (Heparin 5,000 Unit/Ml Vial) 5,000 unit SQ Q12 [facility] Last Admin: 09/19/20 08:54 Dose: 5,000 unit Documented by: Hydrocortisone Sodium Succinate (Hydrocortisone Sod Succ 100 Mg Vial) 50 mg IV Q12 [facility] Last Admin: 09/19/20 08:54 Dose: 50 mg Documented by: Sodium Chloride (Sodium Chloride 0.9%) 1,000 mls @ 100 mls/hr IV .Q10H [facility] Last Infusion: 09/19/20 08:36 Dose: 0 mls/hr Documented by: Insulin Glargine (Insulin Glargine, Human 1 Unit/0.01 Ml) 10 unit SQ [facility] Last Admin: 09/18/20 21:37 Dose: Not Given Documented by: Insulin Human Lispro (Insulin Lispro 1 Unit/0.01 Ml Unit) 0 unit SQ [facility]; Protocol Last Admin: 09/19/20 08:13 Dose: Not Given Documented by: Nystatin (Nystatin Powder Bottle 15gm) 1 dose TOPICAL BID [facility] Last Admin: 09/19/20 08:55 Dose: Not Given Documented by: Ondansetron HCl (Ondansetron 4 Mg/2 Ml Vial) 4 mg IV Q6HP PRN PRN Reason: Nausea And Vomiting Senna (Sennosides 1 Tablet) 2 tab PO HS [facility] Last Admin: 09/18/20 22:10 Dose: Not Given Documented by: Sodium Chloride (0.9 % Sodium Chloride 10 Ml Syringe) 10 ml IV Q8 [facility] Last Admin: 09/19/20 05:52 Dose: Not Given Documented by: A/P Tiffanie A/P Narrative: 70 year old female with a history of hypertension, insulin- dependent DM 2, hypothyroidism, gout, renal transplant about 20-25 years ago for ADPKD (reported baseline creatinine about 1.2), obesity (BMI 51), chronic abdominal soft tissue wounds, nolberto lower extremity lymphedema, bedbound status, recurrent UTIs most recently treated with Bactrim for ESBL E coli now admitted for acute on chronic kidney disease injury and hyperkalemia. Suspect the SHERRY is related to Bactrim therapy on the background of VIRY inhibitor and Cyclosporine medications. EKG did not show concerning findings related to hyperkalemia. UA showed negative nitrates and leukocyte esterase, small amount of pyuria. Urine modestly improved after IV fluid challenge. Potassium persistently elevated. IV fluid continued. Kayexalate x1. #Acute on chronic kidney disease injury #Hyperkalemia: suspect d/t SHERRY and Bactrim #Hx of renal transplant for a ADPKD #Immunosuppressive status: Cyclosporine, CellCept, prednisone #DM II: insulin-dependent #Hypertension #Hx paroxysmal atrial fibrillation: not on anticoagulation at home #Gout #Hypothyroidism #Recent ESBL E coli: treated outpatient with Bactrim #JUVENTINO: untreated due to claustrophobia with CPAP #Chronic abdominal soft tissue wounds #Bilateral lower extremity lymphedema #Obesity: BMI 51 #Bedbound status Plan -IV fluid, follow renal function and urine output. -Holding lisinopril, home allopurinol for now, avoid nephrotoxic medications. -Hold home Cyclosporine, CellCept, prednisone for now-per nephrology. -Kayexalate x1, BMP later today to follow potassium. -Hydrocortisone 50 mg IV Q12 hrs for transplant kidney for now pending nephrology consult. -Nephrology consulted-Dr. Carpio. -Essential home meds. -Lantus and SSI. -Follow up US of transplant kidney. -Follow urine culture-previously had ESBL E coli UTI. -Telemetry until hyperkalemia resolves. -Wound care for abdominal wounds, topical nystatin. -DVT ppx: heparin SQ -Code status: Full -Disposition: TBD Time Spent With Patient Time: Total time spent is greater than 50% in coordination of care (as documented) at patient's floor/unit and/or counseling patient:
[2020-09-19] MEDS ORDERED: HYDROcodone/APAP 10/325MG TABLET PO PRN (10:29)
--- NOTE | 2020-09-19 12:00 | Ultrasound Report ---
INDICATION: Look for infected complex cysts in [place] kidneys. Polycystic kidney disease TECHNIQUE: Grayscale and color flow Doppler spectral imaging. COMPARISON: None. FINDINGS: Right kidney: Right kidney [id number] x 9.5 x 11 cm. Multiple renal cysts consistent with polycystic kidney disease. There is no hydronephrosis. No detectable solid mass. Left kidney: Left kidney [id number] x 9.0 x 11.4 cm. Multiple renal cysts consistent with polycystic kidney disease. There is no hydronephrosis. No detectable solid masses Bladder: Bladder is distended. Prevoid bladder [id number] mL. IMPRESSION: 1. Polycystic kidney disease. There are multiple cysts bilaterally. No solid mass. 2. Distended urinary bladder Interpreted and Authenticated by: Johnnie Wiggins 09/19/20
--- NOTE | 2020-09-19 12:57 | Internal Med Progress Note ---
SUBJECTIVE Subjective Patient information: Note initiated : 09/19/20 at 12:53 pm Service Date, if different from initiated Date: [] Patient: Marialuisa Champagne 70 y/o F admitted on 09/18/20 for UTI. Chief Complaint: [] Interval history: Interval history: Ms. 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 The patient, she has been on Bactrim for UTI a couple times in the last weeks. The urine culture is not available for review you. The patient says that she initially developed dysuria treated with antibiotic but later switched to Bactrim due to urine culture results. Dysuria improved the patient completed the first course of Bactrim. The patient later developed dysuria once again and was restarted on Bactrim, the patient said that was on 09/14/2020. In the ED, the patient had a creatinine of 2.5 and potassium of 5.6. The patient says that creatinine normally is about 1. In our records, the patient's recent creatinines are significantly higher than her reported baseline. Vitals are stable in the ED, there is no evidence of an acute infectious process or other cause of acute kidney injury. Suspect the reason for SHERRY is Bactrim therapy on the background of VIRY inhibitor and cyclosporine medication use in a patient with a renal transplant. 09/19 Improved urine output after IV fluid challenge but creatinine minimally improved, potassium still elevated. Continue IV fluid, Kayexalate given with repeat BMP today to ensure potassium decreasing. Review of outside urine culture that grew ESBL E coli grown in 08/24/20. This was treated with oral Bactrim outpatient. UA does not look like UTI. Urine culture is pending. Monitoring off antibiotics for now. If patient develops a fever or leukocytosis will cover with Meropenem. / Constitutional Vitals: Vital Signs Temp Pulse Resp BP Pulse Ox 97.8 F 78 16 156/68 95 09/19/20 08:00 09/19/20 08:00 09/19/20 08:00 09/19/20 08:00 09/19/20 08:00 Period Temp Pulse Resp BP Sys/Howe Pulse Ox Last 24 Hr 97.8 F-98.8 F 64-89 15-21 114-170/46-149 83-96 Intake and Output 09/18/20 09/19/20 09/19/20 21:59 05:59 13:59 Intake Total 60 1100 1017 Output Total 1 1 Balance 60 1099 1016 Weight 153.586 kg 153.586 kg Patient Weight 09/20/20 05:59 Weight 153.586 kg Intake & Output: Intake & Output 09/18/20 09/19/20 09/19/20 21:59 05:59 13:59 Intake Total 60 1100 1017 Output Total 1 1 Balance 60 1099 1016 Weight 153.586 kg 153.586 kg Intake: IV 60 1000 1017 Sodium Chloride 0.9% 1,000 ml @ 1000 1017 100 mls/hr IV .Q10H [facility] Rx#: [id number] Calcium Gluconate 4.65 Meq In 60 Dextrose 5% in Water 50 ml @ 100 mls/hr IV ONCE ONE Rx#: [id number] Oral 100 Output: # of times incontinent of urine 1 1 Other: Meal Breakfast Percent of Meal Consumed 50% Feeding Ability Independent Urine Appearance Fem Cath Cloudy Urine Color Fem Cath Pale Exam: General: Alert, Awake, No acute Distress Eyes/N/T: EOMI, Head/Neck: neck supple, CV: RRR, No murmurs, Pulm: Clear b/l, no wheezing/rhonchi/rales Abd: soft, nontender, +BS x4 Ext: no clubbing/cyanosis/edema Neuro: Alert, no focal deficits, moves all extremities, Skin: warm/dry OBJ DATA Labs CBC & Chem 7: 09/18/20 15:14 09/19/20 05:55 Labs: Abnormal Lab Results 09/19/20 09/18/20 09/18/20 05:55 15:14 15:13 Hgb 11.8 L MCHC 30.2 L RDW 15.2 H Neut % (Auto) 78.6 H Lymph # (Auto) 1.06 L Sodium 132 L 129 L Potassium 5.6 H 5.6 H Chloride 95 L 91 L BUN 44 H 48 H Creatinine 2.3 H 2.5 H Glucose 132 H 142 H Calcium 8.3 L Lactate Dehydrogenase 130 L Albumin 2.7 L 2.7 L Globulin 4.0 H Albumin/Globulin Ratio 0.7 L 0.8 L Triglycerides 193 H Urine Appearance Urine Protein Urine WBC Amorphous Crystals Urine Bacteria Hyaline Casts Urine Mucus Ur Random Chloride 09/18/20 09/18/20 14:51 14:51 Hgb MCHC RDW Neut % (Auto) Lymph # (Auto) Sodium Potassium Chloride BUN Creatinine Glucose Calcium Lactate Dehydrogenase Albumin Globulin Albumin/Globulin Ratio Triglycerides Urine Appearance Cloudy A Urine Protein 30 A Urine WBC 7 H Amorphous Crystals Few A Urine Bacteria Few A Hyaline Casts 14 H Urine Mucus Few A Ur Random Chloride 39 L Meds: Medications Hydrocodone Bitart/Acetaminophen (Hydrocodone/Apap 10/325mg Tablet) 1 - 2 tab PO Q4HP PRN; Protocol PRN Reason: Pain Dextrose (Dextrose 50% 50 Ml Vial) 0 ml IV UD PRN PRN Reason: Hypoglycemia Diagnostic Test (Pha) (Accu-Chek 1 Each Strip) [address] [facility] Last Admin: 09/19/20 11:37 Dose: 1 each Documented by: Docusate Sodium (Docusate Sodium 100 Mg Capsule) 100 mg PO BID [facility] Last Admin: 09/19/20 08:54 Dose: 100 mg Documented by: Glucose (Dextrose 31 Gm Oral.Susp) 15 gm PO PRN PRN PRN Reason: Hypoglycemia Heparin Sodium (Porcine) (Heparin 5,000 Unit/Ml Vial) 5,000 unit SQ Q12 [facility] Last Admin: 09/19/20 08:54 Dose: 5,000 unit Documented by: Hydrocortisone Sodium Succinate (Hydrocortisone Sod Succ 100 Mg Vial) 50 mg IV Q12 [facility] Last Admin: 09/19/20 08:54 Dose: 50 mg Documented by: Sodium Chloride (Sodium Chloride 0.9%) 1,000 mls @ 100 mls/hr IV .Q10H [facility] Last Infusion: 09/19/20 12:34 Dose: 100 mls/hr Documented by: Insulin Glargine (Insulin Glargine, Human 1 Unit/0.01 Ml) 10 unit SQ [facility] Last Admin: 09/18/20 21:37 Dose: Not Given Documented by: Insulin Human Lispro (Insulin Lispro 1 Unit/0.01 Ml Unit) 0 unit SQ [facility]; Protocol Last Admin: 09/19/20 11:38 Dose: Not Given Documented by: Levothyroxine Sodium (Levothyroxine 100 Mcg Tablet) 100 mcg PO ACB [facility] Metoprolol Tartrate (Metoprolol Tartrate 25 Mg Tablet) 50 mg PO BID [facility] Nystatin (Nystatin Powder Bottle 15gm) 1 dose TOPICAL BID [facility] Last Admin: 09/19/20 08:55 Dose: Not Given Documented by: Ondansetron HCl (Ondansetron 4 Mg/2 Ml Vial) 4 mg IV Q6HP PRN PRN Reason: Nausea And Vomiting Senna (Sennosides 1 Tablet) 2 tab PO HS [facility] Last Admin: 09/18/20 22:10 Dose: Not Given Documented by: Sodium Chloride (0.9 % Sodium Chloride 10 Ml Syringe) 10 ml IV Q8 [facility] Last Admin: 09/19/20 05:52 Dose: Not Given Documented by: A/P Narrative A/P Narrative: A: #SHERRY on CKD: #Hyperkalemia: suspect d/t SHERRY and Bactrim #Hx of renal transplant for a ADPKD #Immunosuppressive status: Cyclosporine, CellCept, prednisone #Recent ESBL E coli: treated outpatient with Bactrim #DM II: insulin-dependent #HTN: #Hx PAF: not on anticoagulation at home #Hypothyroidism: #JUVENTINO: untreated due to claustrophobia with CPAP #Chronic abdominal soft tissue wounds: #b/l LE lymphedema: #Obesity: BMI 51 #Poor functional status/bedbound status Plan: -IV fluid, follow renal function and urine output -Holding lisinopril, home allopurinol for now, avoid nephrotoxic medications. -Hold home Cyclosporine, CellCept, prednisone for now-per nephrology. -Kayexalate x1, BMP later today to follow potassium. -Hydrocortisone 50 mg IV Q12 hrs for transplant kidney for now pending nephrology consult. -Nephrology following - Dr. Carpio. -Lantus and SSI. -Follow up US of transplant kidney. -Follow urine culture-previously had ESBL E coli UTI. -Wound care for abdominal wounds, topical nystatin. 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
[2020-09-19 15:11] LABS: Blood Urea Nitrogen 45 mg/dL (8-23); Calcium 8.2 mg/dL (8.6-10.4); Carbon Dioxide 23 mmol/L (22-30); Chloride 96 mmol/L (96-108); Glomerular Filtration Rate 28; Glucose 132 mg/dL (70-105)
[2020-09-19] MEDS: INSULIN GLARGINE, HUMAN 1 UNIT/0.01 ML SQ SCH (21:27)
[2020-09-19] MEDS: SENNOSIDES 1 TABLET PO SCH (21:28)
[2020-09-19] MEDS: METOPROLOL TARTRATE 25 MG TABLET PO SCH (21:28)
[2020-09-20] MEDS: 0.9 % SODIUM CHLORIDE 1,000 ML IV SCH ×3 (01:49→16:11)
[2020-09-20] MEDS: 0.9 % SODIUM CHLORIDE 10 ML SYRINGE IV SCH ×3 (05:45→20:25)
[2020-09-20] MEDS: INSULIN LISPRO 1 UNIT/0.01 ML UNIT SQ SCH ×4 (07:02→20:24)
[2020-09-20] MEDS: LEVOTHYROXINE 100 MCG TABLET PO SCH (07:03)
--- NOTE | 2020-09-20 07:16 | Internal Med Progress Note ---
SUBJECTIVE Subjective Patient information: Note initiated : 09/20/20 at 7:14 am Service Date, if different from initiated Date: [] Patient: Marialuisa Champagne 70 y/o F admitted on 09/18/20 for UTI. Chief Complaint: [] Interval history: Interval history: Ms. 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 The patient, she has been on Bactrim for UTI a couple times in the last weeks. The urine culture is not available for review you. The patient says that she initially developed dysuria treated with antibiotic but later switched to Bactrim due to urine culture results. Dysuria improved the patient completed the first course of Bactrim. The patient later developed dysuria once again and was restarted on Bactrim, the patient said that was on 09/14/2020. In the ED, the patient had a creatinine of 2.5 and potassium of 5.6. The patient says that creatinine normally is about 1. In our records, the patient's recent creatinines are significantly higher than her reported baseline. Vitals are stable in the ED, there is no evidence of an acute infectious process or other cause of acute kidney injury. Suspect the reason for SHERRY is Bactrim therapy on the background of VIRY inhibitor and cyclosporine medication use in a patient with a renal transplant. 09/19 Improved urine output after IV fluid challenge but creatinine minimally improved, potassium still elevated. Continue IV fluid, Kayexalate given with repeat BMP today to ensure potassium decreasing. Review of outside urine culture that grew ESBL E coli grown in 08/24/20. This was treated with oral Bactrim outpatient. UA does not look like UTI. Urine culture is pending. Monitoring off antibiotics for now. If patient develops a fever or leukocytosis will cover with Meropenem. 09/20 Patient has no new complaints today. No overnight event. Creatinine is improving. Potassium within normal limits. Review of Systems: denies headache/fever/chills/nausea/vomiting/chest or abdominal pain/cough/dyspnea/diarrhea. Otherwise see above. Constitutional Vitals: Vital Signs Temp Pulse Resp BP Pulse Ox 97.1 F 67 18 125/53 91 09/20/20 07:09 09/20/20 07:09 09/20/20 07:09 09/20/20 07:09 09/20/20 07:09 Period Temp Pulse Resp BP Sys/Howe Pulse Ox Last 24 Hr 97.1 F-98.5 F 67-83 16-20 109-156/53-68 91-95 Intake and Output 09/19/20 09/20/20 09/20/20 21:59 05:59 13:59 Intake Total 250 1123 Output Total 200 1 Balance 50 1122 Weight 148.506 kg Intake & Output: Intake & Output 09/19/20 09/20/20 09/20/20 21:59 05:59 13:59 Intake Total 250 1123 Output Total 200 1 Balance 50 1122 Weight 148.506 kg Intake: IV 973 Sodium Chloride 0.9% 1,000 ml @ 973 100 mls/hr IV .Q10H [facility] Rx#: [id number] Oral 250 150 Output: Void Amount 200 # of times incontinent of urine 1 Other: Meal Dinner Percent of Meal Consumed 100% Feeding Ability Independent Urine Color Bright Yellow Urine Odor Normal Exam: General: Alert, Awake, No acute Distress, obese Eyes/N/T: EOMI, Head/Neck: neck supple, CV: RRR, No murmurs, Pulm: Clear b/l, no wheezing/rhonchi/rales Abd: soft, nontender, +BS x4 Ext: no clubbing/cyanosis, b/l LE 2-3+ chronic edema Neuro: Alert, no focal deficits, moves all extremities, Skin: warm/dry OBJ DATA Labs CBC & Chem 7: 09/18/20 15:14 09/20/20 06:02 Labs: Abnormal Lab Results 09/19/20 09/19/20 09/18/20 14:12 05:55 15:14 Hgb 11.8 L MCHC 30.2 L RDW 15.2 H Neut % (Auto) 78.6 H Lymph # (Auto) 1.06 L Sodium 132 L 132 L Potassium 5.6 H 5.6 H Chloride 95 L BUN 45 H 44 H Creatinine 1.8 H 2.3 H Glucose 132 H 132 H Calcium 8.2 L Lactate Dehydrogenase 130 L Albumin 2.7 L Globulin 4.0 H Albumin/Globulin Ratio 0.7 L Triglycerides 193 H Urine Appearance Urine Protein Urine WBC Amorphous Crystals Urine Bacteria Hyaline Casts Urine Mucus Ur Random Chloride 09/18/20 09/18/20 09/18/20 15:13 14:51 14:51 Hgb MCHC RDW Neut % (Auto) Lymph # (Auto) Sodium 129 L Potassium 5.6 H Chloride 91 L BUN 48 H Creatinine 2.5 H Glucose 142 H Calcium 8.3 L Lactate Dehydrogenase Albumin 2.7 L Globulin Albumin/Globulin Ratio 0.8 L Triglycerides Urine Appearance Cloudy A Urine Protein 30 A Urine WBC 7 H Amorphous Crystals Few A Urine Bacteria Few A Hyaline Casts 14 H Urine Mucus Few A Ur Random Chloride 39 L Meds: Medications Hydrocodone Bitart/Acetaminophen (Hydrocodone/Apap 10/325mg Tablet) 1 - 2 tab PO Q4HP PRN; Protocol PRN Reason: Pain Last Admin: 09/19/20 19:43 Dose: 1 tab Documented by: Dextrose (Dextrose 50% 50 Ml Vial) 0 ml IV UD PRN PRN Reason: Hypoglycemia Diagnostic Test (Pha) (Accu-Chek 1 Each Strip) 1 each FS [facility] Last Admin: 09/20/20 07:01 Dose: 1 each Documented by: Docusate Sodium (Docusate Sodium 100 Mg Capsule) 100 mg PO BID [facility] Last Admin: 09/19/20 21:27 Dose: Not Given Documented by: Glucose (Dextrose 31 Gm Oral.Susp) 15 gm PO PRN PRN PRN Reason: Hypoglycemia Heparin Sodium (Porcine) (Heparin 5,000 Unit/Ml Vial) 5,000 unit SQ Q12 [facility] Last Admin: 09/19/20 22:14 Dose: 5,000 unit Documented by: Hydrocortisone Sodium Succinate (Hydrocortisone Sod Succ 100 Mg Vial) 50 mg IV Q12 [facility] Last Admin: 09/19/20 22:15 Dose: 50 mg Documented by: Sodium Chloride (Sodium Chloride 0.9%) 1,000 mls @ 100 mls/hr IV .Q10H [facility] Last Admin: 09/20/20 01:49 Dose: 75 mls/hr Documented by: Insulin Glargine (Insulin Glargine, Human 1 Unit/0.01 Ml) 10 unit SQ [facility] Last Admin: 09/19/20 21:27 Dose: Not Given Documented by: Insulin Human Lispro (Insulin Lispro 1 Unit/0.01 Ml Unit) 0 unit SQ [facility]; Protocol Last Admin: 09/20/20 07:02 Dose: Not Given Documented by: Levothyroxine Sodium (Levothyroxine 100 Mcg Tablet) 100 mcg PO ACB [facility] Last Admin: 09/20/20 07:03 Dose: 100 mcg Documented by: Metoprolol Tartrate (Metoprolol Tartrate 25 Mg Tablet) 50 mg PO BID [facility] Last Admin: 09/19/20 21:28 Dose: Not Given Documented by: Nystatin (Nystatin Powder Bottle 15gm) 1 dose TOPICAL BID [facility] Last Admin: 09/19/20 22:19 Dose: Not Given Documented by: Ondansetron HCl (Ondansetron 4 Mg/2 Ml Vial) 4 mg IV Q6HP PRN PRN Reason: Nausea And Vomiting Senna (Sennosides 1 Tablet) 2 tab PO HS [facility] Last Admin: 09/19/20 21:28 Dose: Not Given Documented by: Sodium Chloride (0.9 % Sodium Chloride 10 Ml Syringe) 10 ml IV Q8 [facility] Last Admin: 09/20/20 05:45 Dose: Not Given Documented by: A/P Narrative A/P Narrative: A: #SHERRY on CKD: -improving #Hyperkalemia: suspect d/t SHERRY and Bactrim -resolved #Hx of renal transplant for a ADPKD #Immunosuppressive status: Cyclosporine, CellCept, prednisone #Recent ESBL E coli: treated outpatient with Bactrim #DM II: insulin-dependent #HTN: #Hx PAF: not on anticoagulation at home #Hypothyroidism: #JUVENTINO: untreated due to claustrophobia with CPAP #Chronic abdominal soft tissue wounds: #b/l LE lymphedema: #Obesity: BMI 51 #Poor functional status/bedbound status Plan: -IVF's, follow renal function and urine output -Nephrology following - Dr. Carpio. -Holding lisinopril, home allopurinol for now, avoid nephrotoxic medications. -Hold home Cyclosporine, CellCept, prednisone for now-per nephrology. -Hydrocortisone 50 mg IV Q12 hrs for transplant kidney for now pending nephrology consult. -Lantus and SSI. -comp wraps to legs -Follow urine culture-previously had ESBL E coli UTI. -Wound care for abdominal wounds, topical nystatin. -DVT ppx: heparin SQ Code status: Home Hospice Rn Spent With Patient Time: Total time spent is greater than 50% in coordination of care (as documented) at patient's floor/unit and/or counseling patient:
[2020-09-20 07:33] LABS: ALT/SGPT < 5 U/L (<40); AST/SGOT < 5 U/L (<32); Albumin 2.6 gm/dL (3.2-5.2); Albumin/Globulin Ratio 0.8 (1.0-2.3); Alkaline Phosphatase 51 U/L (39-117); Bilirubin,Direct < 0.2 mg/dL (0-0.3); Bilirubin,Total 0.2 mg/dL (0.1-1.0); Blood Urea Nitrogen 39 mg/dL (8-23); Calcium 8.4 mg/dL (8.6-10.4); Carbon Dioxide 27 mmol/L (22-30); Chloride 99 mmol/L (96-108); Globulin 3.2 gm/dL (2.2-3.7); Glomerular Filtration Rate 32; Glucose 124 mg/dL (70-105); Lactate Dehydrogenase 89 U/L (135-225); Phosphorous 3.2 mg/dL (2.5-4.5); Triglycerides 181 mg/dL (<150); Uric Acid 4.9 mg/dL (2.5-8.0)
--- NOTE | 2020-09-20 08:20 | Nephrology Progress Note ---
SUBJECTIVE Subjective Patient information: Note initiated : 09/20/20 at 8:19 am Service Date, if different from initiated Date: [] Patient: Marialuisa Champagne 70 y/o F admitted on 09/18/20 for UTI. Chief Complaint: [Elevated creatinine in correction renal transplant patient Patient was seen and evaluated and data reviewed. Interval history: Called concerning a patient with SHERRY in the setting of CKD 4 in the setting of longstanding Cad RTx. Available labs in our EMR suggest progressive decline in GFR since September 2018. At that time she was seen in the hospital by Dr. Charles, diagnosed with right lower lobe pneumonia and transferred to [facility]. As shown in the creatinine below, not much information on her GFR, specifically I do not know if she ever returned to her baseline serum creatinine 1.2 mg/dL. As outlined in the emergency department note, had problems with" UTIs" for the past 6 months and has been treated with a variety of antibiotics. Most recent Bactrim. Excerpts of data recovered from [facility] EMR is as follows: Date Serum Cr February 28, 2020 0.9 mg/dl February 21, 2020 1.2 February 17, 2020 1.8 February 14, 2020 2.2 January 29, 2020 1.7 January 09, 2020 1.0 December 29, 2019 2.0 December 11, 2019 1.2 November 27, 2019 3.8 October 23, 2018 2.4 September 27, 2018 1.2 May 28, 2018 1.8 March 08, 2018 1.1 January 15, 2017 1.1 April 03, 2016 1.0 Renal U/S Right kidney: Right kidney [id number] x 9.5 x 11 cm. Multiple renal cysts consistent with polycystic kidney disease. There is no hydronephrosis. No detectable solid mass. Left kidney: Left kidney [id number] x 9.0 x 11.4 cm. Multiple renal cysts consistent with polycystic kidney disease. There is no hydronephrosis. No detectable solid masses Bladder: Bladder is distended. Prevoid bladder [id number] mL. IMPRESSION: 1. Polycystic kidney disease. There are multiple cysts bilaterally. No solid mass. 2. Distended urinary bladder Laboratory Tests 09/20/20 06:02 Sodium 133 Potassium 4.7 Chloride 99 Carbon Dioxide 27 Anion Gap 7.0 L BUN 39 H Creatinine 1.6 H GFR Calculation 32 Glucose 124 H Calcium 8.4 L Phosphorus 3.2 Magnesium 1.7 serum creatinine The combination of urinary retention lisinopril and cyclosporine at baseline and then the addition of Bactrim would certainly cause an increase in serum creatinine. She may well have a neurogenic bladder or the known effects on bladder emptying in the setting of narcotics. I recommend starting Flomax Every 8 hours bladder scans and straight cath Stopping all narcotics Continue to monitor GFR Avoid any medications with anticholinergic activity May need home straight cath protocol and/or outpatient urologic evaluation with consideration for cystometric's As urine culture is negative no need for antibiotics We will restart immunosuppression tomorrow for now continue every 12 hours IV hydrocortisone Based on labs from [facility] baseline creatinine is 1.0 but she has frequent repeated elevations in her serum creatinine. The urinary retention fits nicely with her history of her first sign of kidney problems is decreased or absent urination. Constitutional Vitals: Vital Signs Temp Pulse Resp BP Pulse Ox 36.2 C 67 18 125/53 91 09/20/20 07:09 09/20/20 07:09 09/20/20 07:09 09/20/20 07:09 09/20/20 07:09 Period Temp Pulse Resp BP Sys/Howe Pulse Ox Last 24 Hr 36.2 C-36.9 C 67-83 16-20 109-133/53-67 91-95 Intake and Output 09/19/20 09/20/20 09/20/20 21:59 05:59 13:59 Intake Total 250 1123 Output Total 200 1 Balance 50 1122 Weight 148.506 kg Intake & Output: Intake & Output 09/19/20 09/20/20 09/20/20 21:59 05:59 13:59 Intake Total 250 1123 Output Total 200 1 Balance 50 1122 Weight 148.506 kg Intake: IV 973 Sodium Chloride 0.9% 1,000 ml @ 973 100 mls/hr IV .Q10H [facility] Rx#: [id number] Oral 250 150 Output: Void Amount 200 # of times incontinent of urine 1 Other: Meal Dinner Percent of Meal Consumed 100% Feeding Ability Independent Urine Color Bright Yellow Urine Odor Normal General appearance: morbidly obese Exam: Nontoxic-appearing Eye Eye exam: Present EOMI and PERRL; Absent conjunctival injection ENT ENT exam: Present mucous membranes dry Neck Neck exam: Present normal inspection; Absent meningismus Respiratory Respiratory exam: Present normal respiratory exam and CTAB Cardiovascular Cardiovascular exam: Present RRR, +S1 and +S2 GI/Abdominal GI/Abdominal exam: Present normal bowel sounds Additional comments: Small ulcer in one of the folds of her pannus Extremities Exam Extremities exam: Present pedal edema Neurological Exam Neurological exam: Present alert, CN II-XII intact and oriented X3 Psychiatric Psychiatric exam: Present normal affect Skin Skin exam: Present dry and intact; Absent pallor, petechiae and urticaria A/P Assessment and plan (1) Urinary retention: Status: Acute Comment: This is probably the central reason she keeps getting episodes of acute renal failure Could be medication related (narcotics and anticholinergic) or diabetic neurogenic bladder Every 8 hour bladder scan and straight cath Flomax Outpatient urinary cystometric's with Dr. Shah Avoid all anticholinergics and narcotic medications as well as any blood pressure medicines that interfere with bladder function such as clonidine (2) SHERRY (acute kidney injury): Status: Acute Comment: This patient has repeated episodes of acute renal failure over the years in the setting of the renal transplant Suspect hemodynamic issues caused by Bactrim, lisinopril and cyclosporine Urinary retention nicely explains the repeated episodes of decreased urination and acute renal failure While there is no hydronephrosis the combination of urinary retention plus VIRY inhibitors plus cyclosporine plus Bactrim would lead to acute renal failure. Infection of her [place] kidneys would be the could cause of pyuria and UTI as her renal transplant appears normal by ultrasound. (3) Acute hyperkalemia: Status: Acute Comment: Improved by stopping VIRY inhibitor and cyclosporine (4) -donor kidney transplant recipient: Status: Chronic Comment: Restart immunosuppression tomorrow (5) ADPKD (autosomal dominant polycystic kidney disease): Status: Chronic Comment: Expected appearance on recent renal ultrasound, nothing to suggest an abscess or infected cyst (6) Diabetes mellitus following renal transplant: Status: Chronic Comment: May be contributing to urinary retention (7) Hypertension, essential: Status: Chronic Comment: Holding VIRY inhibitors, she does not have proteinuria she probably should not be on a RAASI inhibitor in the first place Time Spent With Patient Time: Total time spent is greater than 50% in coordination of care (as documented) at patient's floor/unit and/or counseling patient:
[2020-09-20] MEDS: DOCUSATE SODIUM 100 MG CAPSULE PO SCH ×3 (08:40→20:23)
[2020-09-20] MEDS: HEPARIN 5,000 UNIT/ML VIAL SQ SCH ×2 (08:40→20:50)
[2020-09-20] MEDS: METOPROLOL TARTRATE 25 MG TABLET PO SCH ×2 (08:41→20:50)
[2020-09-20] MEDS: HYDROCORTISONE SOD SUCC 100 MG VIAL IV SCH ×2 (08:41→20:50)
[2020-09-20] MEDS: NYSTATIN POWDER BOTTLE 15GM TOPICAL SCH ×2 (08:43→20:51)
--- NOTE | 2020-09-20 15:54 | Discharge Summary ---
Discharge Provider Provider Patient information: Note initiated : 09/20/20 at 3:53 pm Service Date, if different from initiated Date: [] Patient: Marialuisa Champagne 70 y/o F admitted on 09/18/20 for UTI. Chief Complaint: [] Date of admission: 09/18/20 19:23 Discharge date: 09/21/20 Primary care physician: Danay Andersen Consults: 09/18/20 Consult to Physician [CONS] Stat Comment: Consulting Provider: Rl Bustamante Reason For Exam: Physician to Consult 09/18/20 19:30 Consult to Physician [CONS] Routine Comment: Acute kidney injury in transplant kidney Consulting Provider: Vick Carpio Reason For Exam: Physician to Consult Discharge Meds Discharge Medications Home Medications cyclosporine modified 25 mg PO BIDD 07/09/18 [History Confirmed 09/18/20 Last Taken 09/27/18 0714] hydrocodone-acetaminophen 1 - 2 tab PO Q4H PRN 07/09/18 [History Confirmed 09/18/20 Last Taken 09/26/18 09:47] levothyroxine 100 mcg PO DAILY 07/09/18 [History Confirmed 09/18/20 Last Taken 09/27/18 0431] mycophenolate mofetil 500 mg PO BIDD 07/09/18 [History Confirmed 09/18/20 Last Taken 09/27/18 0714] ondansetron 4 mg SL Q6HP PRN 07/09/18 [History Confirmed 09/18/20 Last Taken 09/06/18 10:20] prednisone 5 mg PO DAILY 07/09/18 [History Confirmed 09/18/20 Last Taken 09/27/18 0714] metoprolol tartrate 50 mg PO BID 11/27/19 [History Confirmed 09/18/20 Last Taken Unknown] allopurinol 50 mg PO Q48 #10 tab 09/20/20 [Rx Last Taken Unknown] tamsulosin 0.4 mg PO HS #30 cap 09/20/20 [Rx Last Taken Unknown] COURSE Hospital Course Hospital course: Interval history: Ms. 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 The patient, she has been on Bactrim for UTI a couple times in the last weeks. The urine culture is not available for review you. The patient says that she initially developed dysuria treated with antibiotic but later switched to Bactrim due to urine culture results. Dysuria improved the patient completed the first course of Bactrim. The patient later developed dysuria once again and was restarted on Bactrim, the patient said that was on 09/14/2020. In the ED, the patient had a creatinine of 2.5 and potassium of 5.6. The patient says that creatinine normally is about 1. In our records, the patient's recent creatinines are significantly higher than her reported baseline. Vitals are stable in the ED, there is no evidence of an acute infectious process or other cause of acute kidney injury. Suspect the reason for SHERRY is Bactrim therapy on the background of VIRY inhibitor and cyclosporine medication use in a patient with a renal transplant. 4 Improved urine output after IV fluid challenge but creatinine minimally improved, potassium still elevated. Continue IV fluid, Kayexalate given with repeat BMP today to ensure potassium decreasing. Review of outside urine culture that grew ESBL E coli grown in 08/24/20. This was treated with oral Bactrim outpatient. UA does not look like UTI. Urine culture is pending. Monitoring off antibiotics for now. If patient develops a fever or leukocytosis will cover with Meropenem. 09/20 Patient has no new complaints today. No overnight event. Creatinine is improving. Potassium within normal limits. *Patient urine culture growing Proteus mirabilis less than 10,000 CFU, afebrile, no dysuria, no leukocytosis. Pt has also recently been on antibiotics. However, given the fact that she is a renal transplant patient on immunosuppression I reached out to infectious disease specialist Dr. Chaudhary. He felt also that holding any antibiotic therapy at this time would be the most appropriate course at this time but with the understanding of close follow-up with PCP and monitoring for increasing symptoms. I relayed this information to the patient with her present. 09/21 Potassium mildly elevated will order follow-up lab outpatient for nephrology. Continue holding home lisinopril. Patient given generous fluids inpatient and likely needs a dose of IV Lasix at this time will provide that now which will likely bring down her potassium. Did discuss case with nephrology today. A: #SHERRY on CKD: #Hyperkalemia: suspect d/t SHERRY and Bactrim #Hx of renal transplant for a ADPKD #Immunosuppressive status: Cyclosporine, CellCept, prednisone #Recent ESBL E coli: treated outpatient with Bactrim #DM II: insulin-dependent #HTN: #Hx PAF: not on anticoagulation at home #Hypothyroidism: #JUVENTINO: untreated due to claustrophobia with CPAP #Chronic abdominal soft tissue wounds: #b/l LE lymphedema: #Obesity: BMI 51 #Poor functional status/bedbound status Discharge diagnosis: Acute on chronic kidney disease hyperkalemia history of renal transplant on Secondary discharge diagnosis: Diabetes hypertension PAF hypothyroidism obstruc tive sleep apnea obesity lymphedema poor functional status Time Spent with Patient Time attestation: Total time spent providing and/or coordinating discharge services: Time spent: Greater than 30 minutes EXAM Constitutional Vitals: Temp Pulse Resp BP Pulse Ox 97.1 F 57 L 20 122/59 93 09/20/20 11:32 09/20/20 11:32 09/20/20 11:32 09/20/20 11:32 09/20/20 11:32 Discharge Data Data Completed and Pending Labs on day of discharge: Labs from last 24 hours 09/20/20 09/19/20 09/19/20 06:02 05:55 05:55 Sodium 133 Potassium 4.7 Chloride 99 Carbon Dioxide 27 Anion Gap 7.0 L BUN 39 H Creatinine 1.6 H GFR Calculation 32 Glucose 124 H Uric Acid 4.9 Calcium 8.4 L Phosphorus 3.2 Magnesium 1.7 Total Bilirubin 0.2 Direct Bilirubin < 0.2 GGT 15 AST < 5 ALT < 5 Alkaline Phosphatase 51 Lactate Dehydrogenase 89 L Total Protein 5.8 L Albumin 2.6 L Globulin 3.2 Albumin/Globulin Ratio 0.8 L Triglycerides 181 H Urine Eosinophils TNP U BK Virus DNA Qual (PCR) TNP Discharge Plan Patient/Caregiver Discharge Instructions Activity: increase activity as tolerated Diet: Renal Activity Restrictions/Additional Instructions: Lisinopril held for SHERRY and hyerkalemia Prescriptions: New allopurinol 100 mg tablet 50 mg PO Q48 Qty: 10 RF: 0 tamsulosin 0.4 mg Capsule 0.4 mg PO HS Qty: 30 RF: 0 Continued prednisone 5 MG tablet 5 mg PO DAILY RF: 0 hydrocodone-acetaminophen 1 TAB tablet 1 - 2 tab PO Q4H PRN (Reason: Pain) RF: 0 mycophenolate mofetil 500 MG tablet 500 mg PO BIDD RF: 0 levothyroxine 100 MCG tablet 100 mcg PO DAILY RF: 0 ondansetron 4 MG tablet 4 mg SL Q6HP PRN (Reason: Nausea) RF: 0 cyclosporine modified 50 MG capsule 25 mg PO BIDD RF: 0 metoprolol tartrate 25 MG tablet 50 mg PO BID RF: 0 Discontinued allopurinol 300 mg tablet 100 mg PO QDAY RF: 0 Other Ambulatory Orders: Basic Metabolic Panel (Routine) Timeframe: 3 Days Facility: [facility] - Location: Laboratory Ordered By: Sanjay Vaca Follow Up Plan Follow up with: Danay Andersen MD [Primary Care Provider] - Jose Alfredo Inman MD [Physician] - Shubham Shah MD [Physician] - (cystometry) Patient Disposition: Home Health Service Prognosis: Undetermined Overall status at discharge: patient is progressing back to baseline Discharge Orders: Discharge Order (Routine); Ordered 09/21/20 Ordered By: Sanjay Vaca
[2020-09-20] MEDS ORDERED: ACETAMINOPHEN 325 MG TABLET PO PRN (18:55)
[2020-09-20] MEDS: INSULIN GLARGINE, HUMAN 1 UNIT/0.01 ML SQ SCH (20:24)
[2020-09-20] MEDS: SENNOSIDES 1 TABLET PO SCH (20:25)
[2020-09-20] MEDS ORDERED: TAMSULOSIN 0.4 MG CAPSULE PO SCH (21:00)
[2020-09-21] MEDS: 0.9 % SODIUM CHLORIDE 1,000 ML IV SCH ×2 (02:53→04:25)
[2020-09-21] MEDS: 0.9 % SODIUM CHLORIDE 10 ML SYRINGE IV SCH (04:25)
[2020-09-21 06:48] LABS: Blood Urea Nitrogen 34 mg/dL (8-23); Calcium 8.4 mg/dL (8.6-10.4); Carbon Dioxide 23 mmol/L (22-30); Chloride 103 mmol/L (96-108); Glomerular Filtration Rate 38; Glucose 134 mg/dL (70-105)
[2020-09-21] MEDS: INSULIN LISPRO 1 UNIT/0.01 ML UNIT SQ SCH ×2 (07:10→11:19)
[2020-09-21] MEDS: LEVOTHYROXINE 100 MCG TABLET PO SCH (07:13)
[2020-09-21] MEDS: HEPARIN 5,000 UNIT/ML VIAL SQ SCH (08:08)
[2020-09-21] MEDS: NYSTATIN POWDER BOTTLE 15GM TOPICAL SCH (08:10)
[2020-09-21] MEDS: HYDROCORTISONE SOD SUCC 100 MG VIAL IV SCH (08:10)
[2020-09-21] MEDS: METOPROLOL TARTRATE 25 MG TABLET PO SCH (08:10)
[2020-09-21] MEDS: DOCUSATE SODIUM 100 MG CAPSULE PO SCH (08:10)
[2020-09-21] MEDS ORDERED: HYDROcodone/APAP 5/325MG TABLET PO ONE (08:58)
--- NOTE | 2020-09-21 09:17 | Nephrology Progress Note ---
SUBJECTIVE Subjective Patient information: Note initiated : 09/21/20 at 9:16 am Service Date, if different from initiated Date: [] Patient: Marialuisa Champagne 70 y/o F admitted on 09/18/20 for UTI. Chief Complaint: [worried about kidney fx] Called concerning a patient with SHERRY in the setting of CKD 4 in the setting of longstanding Cad RTx. Available labs in our EMR suggest progressive decline in GFR since September 2018. At that time she was seen in the hospital by Dr. Charles, diagnosed with right lower lobe pneumonia and transferred to [facility]. As shown in the creatinine below, not much information on her GFR, specifically I do not know if she ever returned to her baseline serum creatinine 1.2 mg/dL. As outlined in the emergency department note, had problems with" UTIs" for the past 6 months and has been treated with a variety of antibiotics. Most recent Bactrim. Excerpts of data recovered from [facility] EMR is as follows: Date Serum Cr February 28, 2020 0.9 mg/dl February 21, 2020 1.2 February 17, 2020 1.8 February 14, 2020 2.2 January 29, 2020 1.7 January 09, 2020 1.0 December 29, 2019 2.0 December 11, 2019 1.2 November 27, 2019 3.8 October 23, 2018 2.4 September 27, 2018 1.2 May 28, 2018 1.8 March 08, 2018 1.1 January 15, 2017 1.1 April 03, 2016 1.0 Renal U/S Right kidney: Right kidney [id number] x 9.5 x 11 cm. Multiple renal cysts consistent with polycystic kidney disease. There is no hydronephrosis. No detectable solid mass. Left kidney: Left kidney .1 x 9.0 x 11.4 cm. Multiple renal cysts consistent with polycystic kidney disease. There is no hydronephrosis. No detectable solid masses Bladder: Bladder is distended. Prevoid bladder [id number] mL. IMPRESSION: 1. Polycystic kidney disease. There are multiple cysts bilaterally. No solid mass. 2. Distended urinary bladder Microbiology 09/18/20 14:51 Urine - Catheterized - Final Proteus mirabilis 10K Laboratory Tests 09/19/20 09/19/20 09/20/20 05:55 05:55 06:02 Sodium Potassium Chloride Carbon Dioxide Anion Gap BUN Creatinine GFR Calculation Glucose Uric Acid 4.9 Calcium Total Bilirubin 0.2 Total Protein 5.8 L Cyclosporine Pending BK Virus DNA Quant PCR Pending 09/21/20 05:23 Sodium 136 Potassium 5.4 H Chloride 103 Carbon Dioxide 23 Anion Gap 10.0 BUN 34 H Creatinine 1.4 H GFR Calculation 38 Glucose 134 H Uric Acid Calcium 8.4 L Total Bilirubin Total Protein Cyclosporine BK Virus DNA Quant PCR Serum Creatinine OK for discharge Restart cyclosporine 25 mg po q9AM and q9PM Restart Mycofenilate 500 mg po BID Restart prednisone 5 mg po QAM No narcotics Continue Flomax 5 mg po qHS Follow up with Dr Inman for nephrology and Dr Reeves for ID Constitutional Vitals: Vital Signs Temp Pulse Resp BP Pulse Ox 36.1 C L 65 20 129/54 94 09/21/20 06:40 09/21/20 06:40 09/21/20 06:40 09/21/20 06:40 09/21/20 06:40 Period Temp Pulse Resp BP Sys/Howe Pulse Ox Last 24 Hr 35.9 C-36.4 C 56-94 18-20 113-132/54-61 92-96 Intake and Output 09/20/20 09/21/20 09/21/20 21:59 05:59 13:59 Intake Total 1400 1017 Output Total 1 1 Balance 1399 1016 Weight 150.23 kg Intake & Output: Intake & Output 09/20/20 09/21/20 09/21/20 21:59 05:59 13:59 Intake Total 1400 1017 Output Total 1 1 Balance 1399 1016 Weight 150.23 kg Intake: IV 1000 917 Sodium Chloride 0.9% 1,000 ml @ 1000 917 75 mls/hr IV .[id number] [facility] Rx#: [id number] Oral 400 100 Output: # of times incontinent of urine 1 1 Other: Urine Color Bright Yellow Stool Size Moderate Stool Color Brown Stool Consistency Renae # Bowel Movements 1 General appearance: cooperative and obese Exam: NAD ENT ENT exam: Present mucous membranes moist Neck Neck exam: Present full ROM and normal inspection; Absent meningismus Respiratory Respiratory exam: Present CTAB Cardiovascular Cardiovascular exam: Present normal rate and rhythm, +S1 and +S2; Absent JVD GI/Abdominal GI/Abdominal exam: Present soft Additional comments: Pannus with small ulcer Additional comments: last 4 PVR ,50 cc after stopping narcotics and adding flomax Extremities Exam Extremities exam: Present pedal edema (1+); Absent calf tenderness Neurological Exam Neurological exam: Present CN II-XII intact and oriented X3; Absent normal gait (nonambulatory) Psychiatric Psychiatric exam: Present normal affect and normal mood Skin Skin exam: Present dry and warm; Absent pallor, petechiae and rash A/P Narrative A/P Narrative: Assessment and plan (1) Urinary retention: Status: Acute Comment: This is probably the central reason she keeps getting episodes of acute renal failure Could be medication related (narcotics and anticholinergic) or diabetic neurogenic bladder Every 8 hour bladder scan and straight cath prn => since stopping narcotics and adding Flomax 0.4 mg qHS last 3 PVRV <50cc Flomax Outpatient urinary cystometric's with Dr. Shah if problem continues Avoid all anticholinergics and narcotic medications as well as any blood pressure medicines that interfere with bladder function such as clonidine (2) SHERRY (acute kidney injury): Status: Acute Comment: This patient has repeated episodes of acute renal failure over the years in the setting of the renal transplant Suspect hemodynamic issues caused by Bactrim, lisinopril and cyclosporine Urinary retention nicely explains the repeated episodes of decreased urination and acute renal failure While there is no hydronephrosis the combination of urinary retention plus VIRY inhibitors plus cyclosporine plus Bactrim would lead to acute renal failure. Infection of her [place] kidneys would be the could cause of pyuria and UTI as her renal transplant appears normal by ultrasound. (3) Acute hyperkalemia: Status: Acute Comment: Improved by stopping VIRY inhibitor and cyclosporine (4) -donor kidney transplant recipient: Status: Chronic Comment: Restart immunosuppression tomorrow (5) ADPKD (autosomal dominant polycystic kidney disease): Status: Chronic Comment: Expected appearance on recent renal ultrasound, nothing to suggest an abscess or infected cyst (6) Diabetes mellitus following renal transplant: Status: Chronic Comment: May be contributing to urinary retention (7) Hypertension, essential: Status: Chronic Comment: Holding VIRY inhibitors, she does not have proteinuria she probably should not be on a RAASI inhibitor in the first place Follow up with her primary senior enterprise architect Dr Inman. Time Spent With Patient Time: Total time spent is greater than 50% in coordination of care (as documented) at patient's floor/unit and/or counseling patient:
[2020-09-21] MEDS ORDERED: SODIUM POLYSTYRENE SULFONATE 15 GM/60 ML SUSPENSION PO ONE (09:50)
[2020-09-21] MEDS ORDERED: ALBUMIN HUMAN 12.5 GM/50 ML BAG IV ONE (09:55)
[2020-09-21] MEDS ORDERED: FUROSEMIDE 100 MG/10 ML VIAL IV ONE (09:55)
[2020-10-22 15:24] LABS: BK Virus DNA BPCR Quant Bld-SO NO DNA DETECTED copies/mL
== END 2020-09-21 13:17 | disposition home health service (06) | DRG 683 ==
LOC: ED 14:00 → MEDSUR 19:23
PROVIDERS: ADMIT Internal Medicine; ATTEND Internal Medicine

== ENCOUNTER 2021-02-25 12:15 | Inpatient (IN) ==
[2021-02-25 12:44] LABS: POC Blood Urea Nitrogen 40 mg/dL (6-20); POC CO2 30 mmol/L (22-30); POC Calcium, Ionized 1.08 mmEq/L (1.16-1.32); POC Chloride 98 mEq/L (96-108); POC Creatinine 1.1 mg/dL (0.6-1.2); POC Glucose, Random 279 mg/dL (70-105); POC Hematocrit 36 % (36-48); POC Potassium 5.1 mEql/L (3.3-5.1); POC Sodium 134 mEq/L (133-145)
[2021-02-25 13:19] LABS: Basophils # (Auto) 0.06 K/mcL (0.00-0.30); Basophils % (Auto) 0.5 % (0.0-2.0); Eosinophils # (Auto) 0.13 K/mcL (0.00-0.70); Eosinophils % (Auto) 1.2 % (0.0-7.0); Hematocrit 38.5 % (34.1-44.9); Hemoglobin 11.3 g/dL (11.2-15.7); Lymphocytes # (Auto) 2.33 K/mcL (1.50-4.80); Lymphocytes % (Auto) 21.1 % (15.5-49.0); Mean Cell Volume 90.2 fL (80.0-100.0); Mean Corpuscular HGB Conc 29.4 g/dL (31.0-36.0); Mean Platelet Volume 9.4 fL (7.4-10.4); Monocytes # (Auto) 0.54 K/mcL (0.10-0.90); Monocytes % (Auto) 4.9 % (1.0-12.0); Neutrophils % (Auto) 72.3 % (38.0-78.0); Platelet Count 231 K/mcL (140-440); RBC 4.27 M/mcL (3.59-5.38); Red Cell Distribution Width 15.6 % (11.5-14.5); WBC 11.1 K/mcL (4.5-11.0)
[2021-02-25] MEDS ORDERED: cefTRIAXone 1 GM VIAL IV ONE (13:22)
[2021-02-25] MEDS ORDERED: DOXYCYCLINE 100 MG in DEXTROSE 5% IN WATER 100 ML IV ONE (13:22)
--- NOTE | 2021-02-25 13:27 | Emergency Department Note ---
SOB HPI General Chief Complaint: Shortness of Breath/Dyspnea Stated Complaint: shortness of breath, low O2 sats Time Seen by Provider: 02/25/21 13:07 Source: patient and EMS Mode of arrival: EMS Limitations: altered mental status and other History of Present Illness HPI Narrative: Patient is a 71-year-old lady who arrives emergency department by ambulance complaining of shortness of breath. History is provided by the patient with some supplemental information from paramedics and review of the patient's medical record. History is limited as the patient is a very vague historian. She says she started feeling short of breath when she awoke this morning. This is gradual in onset has been progressively worsening. Nothing seems to make her symptoms any better or worse. She has had an associated cough. She denies any fever chills or chest pain. She does have worsening lower extremity edema associated with her symptoms. She has not received a COVID-19 vaccine. Related Data Home Medications Medication Instructions Recorded Confirmed cyclosporine modified 25 mg PO BIDD 07/09/18 10/10/20 hydrocodone-acetaminophen 1 - 2 tab PO Q4H PRN 07/09/18 10/10/20 levothyroxine 100 mcg PO DAILY 07/09/18 10/10/20 mycophenolate mofetil 500 mg PO BIDD 07/09/18 10/10/20 ondansetron 4 mg SL Q6HP PRN 07/09/18 10/10/20 prednisone 5 mg PO DAILY 07/09/18 10/10/20 metoprolol tartrate 50 mg PO BID 11/27/19 10/10/20 Humalog Mix 75-25(U-100)Insuln See Protocol .ROUTE PRN PRN 10/10/20 10/10/20 Previous Rx's Medication Instructions Recorded allopurinol 50 mg PO Q48 #10 tab 09/20/20 tamsulosin 0.4 mg PO HS #30 cap 09/20/20 Allergies Allergy/AdvReac Type Severity Reaction Status Date / Time walnut Allergy Severe Anaphylaxis Verified 10/10/20 15:39 morphine Allergy Mild Rash Verified 10/10/20 15:39 Review of Systems ROS Limitations: ROS unobtainable due to patients medical condition PFSH Narrative Patient History Narrative: Narrative: Medical/Surgical/Family History All Active Problems (Updated 02/25/21 @ 15:42 by Nathen Aleman DO) Fall (Chronic) Multiple contusions (Chronic) Obesity (Chronic) Hypertension (Chronic) Hypercholesterolemia (Chronic) Herpes zoster (Chronic) Gout (Chronic) Osteoarthritis (Chronic) Allergic rhinitis (Chronic) Skin cancer (Chronic) Hypothyroidism (Chronic) Mixed hyperlipidemia (Chronic) 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) Lymphedema (Chronic) Non-pressure chronic ulcer left lower leg, limited to breakdown skin (Chronic) Venous insufficiency (Chronic) Right hip pain (Chronic) Obstructive sleep apnea (Chronic) Blind (Chronic) History of shingles (Chronic) Chronic kidney disease, stage III (moderate) (Chronic) 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) 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) Ankle sprain and strain (Acute) Atrial fibrillation (Acute) Atrial fibrillation with rapid ventricular response (Acute) Hematuria (Chronic) Closed displaced trimalleolar fracture of right lower leg with routine healing (Chronic) Hypertension, essential (Chronic) End stage renal disease (Chronic) Closed displaced supracondylar fracture with intracondylar extension of lower e nd of femur with routine healing (Chronic) Type 2 diabetes mellitus without complications (Chronic) Morbid (severe) obesity due to excess calories (Chronic) HCC (hepatocellular carcinoma) (Chronic) History of echocardiogram (Chronic) Pneumonia (Acute) Hypoxia (Acute) Hypotension (Acute) SOB (shortness of breath) (Acute) Right lower lobe pneumonia (Acute) Skin abnormalities (Chronic) Sepsis (Acute) Acute renal failure (Acute) Panniculitis (Acute) SHERRY (acute kidney injury) (Acute) Acute hyperkalemia (Acute) Pyuria (Acute) Urinary retention (Acute) Generalized weakness (Acute) Pneumonia (Acute) Hypoxia (Acute) Congestive heart failure (Acute) Medical History Allergic rhinitis Blind Closed displaced supracondylar fracture with intracondylar extension of lower end of femur with routine healing Closed displaced trimalleolar fracture of right lower leg with routine healing End stage renal disease Gout Gout due to renal impairment of multiple sites HCC (hepatocellular carcinoma) Hematuria Herpes zoster Hidradenitis suppurativa History of echocardiogram EF 75% History of shingles Hypercholesterolemia Hypertension Hypertension, essential Holding VIRY inhibitors, she does not have proteinuria she probably should not be on a RAASI inhibitor in the first place Hypothyroidism Lymphedema Mixed hyperlipidemia Morbid (severe) obesity due to excess calories Non-pressure chronic ulcer left lower leg, limited to breakdown skin Obesity Obstructive sleep apnea Osteoarthritis Right hip pain Skin cancer Type 2 diabetes mellitus without complications Venous insufficiency Surgical History H/O sigmoidoscopy (06/12/18) History of open reduction and internal fixation (ORIF) procedure (05/28/18) Left supracondylar intercondylar distal femur fracture, right trimalleolar ankle fracture and right syndesmosis right ankle Kidney transplant recipient x2 1992 & 1993 S/P aneurysm repair (~1992) S/P PICC central line placement (06/02/18) Status post clamping of cerebral aneurysm Family History Father Heart disease Myocardial infarction Mother Hx of CABG Grandmother Diabetes Paternal Social History Smoking Status: Never smoker Alcohol Intake Frequency: holiday/special occasion only Substance Use: does not use Exam Narrative Narrative: I reviewed the vital signs. Gen -patient is drowsy but arousable to verbal stimuli and in no acute distress. HEENT -there are exophytic skin lesions on the bridge of the patient's nose as well as her right frontal region. Conjunctiva are moderately injected bilaterally with purulent drainage present. Mucous membranes are moist. CV -S1-S2 regular rate and rhythm. Peripheral pulses are palpable. There is no JVD. Resp -breathing is slightly labored while on supplemental oxygen via nasal cannula. The patient is able to speak in short sentences but has increased work of breathing after prolonged conversation. lungs have coarse rhonchi bilaterally. There is no cyanosis. GI - Abdomen is soft and nontender to palpation. There is no guarding or rebound tenderness. Derm -skin is warm and dry. There is no visible rash. MSK -present extremities are atraumatic. There is severe pitting edema to bilateral lower extremities. Psych -patient has appropriate affect. The patient does not appear internally stimulated. Neuro -patient answers questions appropriately with fluent speech. Patient move s all present extremities equally. General Limitations: altered mental status and other Course Vital Signs Vital signs: Vital Signs Pulse Rate 75 02/25/21 12:31 Respiratory Rate 24 H 09/07/21 12:31 Blood Pressure 99/51 09/07/21 12:31 Pulse Oximetry (%) 92 02/25/21 12:31 Pulse Rate 73 02/25/21 15:30 Respiratory Rate 24 H 02/25/21 12:31 Blood Pressure 99/45 02/25/21 15:30 Pulse Oximetry (%) 95 02/25/21 15:30 MDM MDM Narrative Medical decision making narrative: Patient presents with shortness of breath. She was quite hypoxemic on arrival and placed on a nonrebreather which eventually was titrated down to supplemental oxygen via nasal cannula. Chest x- ray reveals bilateral infiltrates and is somewhat limited by the patient's body habitus. Labs remarkable for significant elevation in her BNP. She has minimal elevation of her troponin but has no chest pain so I think this is likely type II DE due to decompensated heart failure. Out of an abundance of caution she was given aspirin. She was given furosemide to treat her decompensated heart failure and given concerns for possible underlying infiltrates and her chest x- ray also administered antibiotics. I discussed the plan for admission with the patient and she is agreeable. I discussed the patient's history examination and diagnostic findings with Dr. Nixon, who agrees with the plan of care and accepts admission. Critical care time I provided 32 minutes of critical care time. This was in addition to any separately billable procedures. The patient was given supplemental oxygen to treat her hypoxemic respiratory failure. She was given antibiotics to treat possible pneumonia in the setting of immunosuppression. She was given furosemide to treat the congestive heart failure that is causing her hypoxemic respiratory failure.. The patient was closely monitored for response to treatment and stability of vital signs throughout their emergency department stay. Lab Data Lab results reviewed: Yes I reviewed the patient's lab results. Result diagrams: 02/25/21 12:38 02/25/21 12:38 Labs: Lab Results 02/25/21 02/25/21 02/25/21 Range/Units 12:38 12:38 13:42 WBC 11.1 H (4.5-11.0) K/mcL RBC 4.27 (3.59-5.38) M/mcL Hgb 11.3 (11.2-15.7) g/dL Hct 38.5 (34.1-44.9) % POC Hct 36 (36-48) % MCV 90.2 (80.0-100.0) fL MCH 26.5 (26.0-34.0) pg MCHC 29.4 L (31.0-36.0) g/dL RDW 15.6 H (11.5-14.5) % Plt Count 231 (140-440) K/mcL MPV 9.4 (7.4-10.4) fL Neut % (Auto) 72.3 (38.0-78.0) % Lymph % (Auto) 21.1 (15.5-49.0) % [place] % (Auto) 4.9 (1.0-12.0) % Eos % (Auto) 1.2 (0.0-7.0) % Baso % (Auto) 0.5 (0.0-2.0) % Lymph # (Auto) 2.33 (1.50-4.80) K/mcL [place] # (Auto) 0.54 (0.10-0.90) K/mcL Eos # (Auto) 0.13 (0.00-0.70) K/mcL Baso # (Auto) 0.06 (0.00-0.30) K/mcL Absolute Neutrophils 7.99 (1.80-8.00) K/mcL POC Sodium 134 (133-145) mEq/L Sodium 134 (133-145) mmol/L POC Potassium 5.1 (3.3-5.1) mEql/L Potassium 5.4 H (3.3-5.1) mmol/L POC Chloride 98 (96-108) mEq/L Chloride 98 (96-108) mmol/L Carbon Dioxide 30 (22-30) mmol/L POC Total CO2 30 (22-30) mmol/L Anion Gap 6.0 L (8.0-16.0) POC BUN 40 H (6-20) mg/dL BUN 41 H (8-23) mg/dL Creatinine 1.2 H (0.6-1.1) mg/dL POC Creatinine 1.1 (0.6-1.2) mg/dL GFR Calculation 45 Glucose 274 H (70-105) mg/dL POC Glucose 279 H (70-105) mg/dL Calcium 8.0 L (8.6-10.4) mg/dL POC WB Ioniz Calcium 1.08 L (1.16-1.32) mmEq/L Total Bilirubin 0.5 (0.1-1.0) mg/dL AST < 5 (<32) U/L ALT < 5 (<40) U/L Alkaline Phosphatase 76 (39-117) U/L Troponin T 0.04 H* (<0.03) ng/mL NT-Pro-B Natriuret Pep (<125.0) pg/mL Total Protein 5.6 L (5.9-8.4) gm/dL Albumin 2.3 L (3.2-5.2) gm/dL Globulin 3.3 (2.2-3.7) gm/dL Albumin/Globulin Ratio 0.7 L (1.0-2.3) 02/25/21 Range/Units 13:42 WBC (4.5-11.0) K/mcL RBC (3.59-5.38) M/mcL Hgb (11.2-15.7) g/dL Hct (34.1-44.9) % POC Hct (36-48) % MCV (80.0-100.0) fL MCH (26.0-34.0) pg MCHC (31.0-36.0) g/dL RDW (11.5-14.5) % Plt Count (140-440) K/mcL MPV (7.4-10.4) fL Neut % (Auto) (38.0-78.0) % Lymph % (Auto) (15.5-49.0) % [place] % (Auto) (1.0-12.0) % Eos % (Auto) (0.0-7.0) % Baso % (Auto) (0.0-2.0) % Lymph # (Auto) (1.50-4.80) K/mcL [place] # (Auto) (0.10-0.90) K/mcL Eos # (Auto) (0.00-0.70) K/mcL Baso # (Auto) (0.00-0.30) K/mcL Absolute Neutrophils (1.80-8.00) K/mcL POC Sodium (133-145) mEq/L Sodium (133-145) mmol/L POC Potassium (3.3-5.1) mEql/L Potassium (3.3-5.1) mmol/L POC Chloride (96-108) mEq/L Chloride (96-108) mmol/L Carbon Dioxide (22-30) mmol/L POC Total CO2 (22-30) mmol/L Anion Gap (8.0-16.0) POC BUN (6-20) mg/dL BUN (8-23) mg/dL Creatinine (0.6-1.1) mg/dL POC Creatinine (0.6-1.2) mg/dL GFR Calculation Glucose (70-105) mg/dL POC Glucose (70-105) mg/dL Calcium (8.6-10.4) mg/dL POC WB Ioniz Calcium (1.16-1.32) mmEq/L Total Bilirubin (0.1-1.0) mg/dL AST (<32) U/L ALT (<40) U/L Alkaline Phosphatase (39-117) U/L Troponin T (<0.03) ng/mL NT-Pro-B Natriuret Pep 2972.0 H (<125.0) pg/mL Total Protein (5.9-8.4) gm/dL Albumin (3.2-5.2) gm/dL Globulin (2.2-3.7) gm/dL Albumin/Globulin Ratio (1.0-2.3) ED POC Tests ED POC Tests: DAVON - SARS Antigen Negative EKG Data EKG #1: EKG attestation: Yes I reviewed and interpreted this EKG. EKG results narrative: EKG performed at 12:50 PM: Sinus rhythm with first- degree AV block, rate 74. Normal P wave morphology. Left anterior fascicular block. No ST segment deviation. Normal QTC duration. No old EKG immediately available for comparison. EKG was interpreted by me. Discharge Plan Patient/Caregiver Discharge Instructions Pt seen by [employer]/PA only: No Clinical Impression: Congestive heart failure Patient Disposition: Xfer As Inpt ([facility]) Condition: Fair Follow up with: Danay Andersen MD [Primary Care Provider] - Prescriptions: No Action prednisone 5 MG tablet 5 mg PO DAILY RF: 0 hydrocodone-acetaminophen 1 TAB tablet 1 - 2 tab PO Q4H PRN (Reason: Pain) RF: 0 mycophenolate mofetil 500 MG tablet 500 mg PO BIDD RF: 0 levothyroxine 100 MCG tablet 100 mcg PO DAILY RF: 0 ondansetron 4 MG tablet 4 mg SL Q6HP PRN (Reason: Nausea) RF: 0 cyclosporine modified 50 MG capsule 25 mg PO BIDD RF: 0 metoprolol tartrate 25 MG tablet 50 mg PO BID RF: 0 allopurinol 100 mg tablet 50 mg PO Q48 Qty: 10 RF: 0 tamsulosin 0.4 mg Capsule 0.4 mg PO HS Qty: 30 RF: 0 Humalog Mix 75-25(U-100)Insuln See Protocol units .Route PRN PRN (Reason: Hyperglycemia) RF: 0
--- NOTE | 2021-02-25 13:30 | XRay Report ---
CLINICAL INFORMATION: shortness of breath, low O2 sats. COMPARISON: 10/11/2020 FINDINGS: Marked cardiomegaly is increased. Mild mediastinal widening noted. Pulmonary vessels are mildly distended. Large dense consolidated infiltrate in the left lung base (retrocardiac region) with small left pleural effusions has developed. Moderate right basilar infiltrate with small right pleural effusion also developing. IMPRESSION: Large left and moderate right basilar infiltrates and small bilateral effusions. Consider infection or aspiration. Mild underlying CHF Interpreted and Authenticated by: Johnnie Bermudez 02/25/21
[2021-02-25 13:35] LABS: ALT/SGPT < 5 U/L (<40); AST/SGOT < 5 U/L (<32); Albumin 2.3 gm/dL (3.2-5.2); Albumin/Globulin Ratio 0.7 (1.0-2.3); Alkaline Phosphatase 76 U/L (39-117); Bilirubin,Total 0.5 mg/dL (0.1-1.0); Blood Urea Nitrogen 41 mg/dL (8-23); Carbon Dioxide 30 mmol/L (22-30); Chloride 98 mmol/L (96-108); Globulin 3.3 gm/dL (2.2-3.7); Glomerular Filtration Rate 45; Glucose 274 mg/dL (70-105)
[2021-02-25] MEDS ORDERED: FUROSEMIDE 40 MG/4 ML VIAL IV ONE (15:06)
[2021-02-25] MEDS ORDERED: ASPIRIN 81 MG TAB.CHEW CHEWED ONE (15:25)
--- NOTE | 2021-02-25 16:11 | Internal Med History&Physical ---
HPI History of Present Illness Patient information: Note initiated : 02/25/21 at 4:08 pm Service Date, if different from initiated Date: [] Patient: Marialuisa Champagne a 71 y/o F admitted on for shortness of breath, low O2 sats. Chief Complaint: [CHF exacerbation] History of present illness: Ms. Champagne is a 71 year old F history of CHF, morbid obesity, type 2 diabetes, end-stage renal disease status post kidney transplant, essential hypertension, gout, hypothyroidism, obstructive sleep apnea, presenting with several day history of shortness of breath and low oxygen saturations. Patient has been told that she would need CPAP for sleep apnea but she never get one. She was at 1 time been told that she does not qualify for home oxygen although he she was also been told that she would probably benefit from it. Anyway, over the past couple of days, her has noticed patient to have increasing lethargy, increasing shortness of breath, as well as low oxygen saturation as read by the oxygen probe at home. As a result, he called EMS to send patients to our ED for further evaluation and treatments. Oxygen saturations was in the 50s when she arrived the ED on room air. She was subsequently been placed on nonrebreather oxygen and eventually been weaned down to 6 L nasal cannula oxygen's. Labs significant for mildly elevated white count at 11.1, potassium 5.4, serum creatinine 1.2, serum troponin 0 0.04 with baseline was 0.03, BNP at 3000. Chest x-ray suggestive of presence of pulmonary edema and CHF. 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) Lymphedema (Chronic) Non-pressure chronic ulcer left lower leg, limited to breakdown skin (Chronic) Venous insufficiency (Chronic) Right hip pain (Chronic) Obstructive sleep apnea (Chronic) Blind (Chronic) History of shingles (Chronic) Chronic kidney disease, stage III (moderate) (Chronic) 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) 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) Ankle sprain and strain (Acute) Atrial fibrillation (Acute) Atrial fibrillation with rapid ventricular response (Acute) Hematuria (Chronic) Closed displaced trimalleolar fracture of right lower leg with routine healing (Chronic) Hypertension, essential (Chronic) End stage renal disease (Chronic) Closed displaced supracondylar fracture with intracondylar extension of lower end of femur with routine healing (Chronic) Type 2 diabetes mellitus without complications (Chronic) Morbid (severe) obesity due to excess calories (Chronic) HCC (hepatocellular carcinoma) (Chronic) History of echocardiogram (Chronic) Pneumonia (Acute) Hypoxia (Acute) Hypotension (Acute) SOB (shortness of breath) (Acute) Right lower lobe pneumonia (Acute) Skin abnormalities (Chronic) Sepsis (Acute) Acute renal failure (Acute) Panniculitis (Acute) SHERRY (acute kidney injury) (Acute) Acute hyperkalemia (Acute) Pyuria (Acute) Urinary retention (Acute) Generalized weakness (Acute) Pneumonia (Acute) Hypoxia (Acute) Congestive heart failure (Acute) Medical History Allergic rhinitis Blind Closed displaced supracondylar fracture with intracondylar extension of lower end of femur with routine healing Closed displaced trimalleolar fracture of right lower leg with routine healing End stage renal disease Gout Gout due to renal impairment of multiple sites HCC (hepatocellular carcinoma) Hematuria Herpes zoster Hidradenitis suppurativa History of echocardiogram EF 75% History of shingles Hypercholesterolemia Hypertension Hypertension, essential Holding VIRY inhibitors, she does not have proteinuria she probably should not be on a RAASI inhibitor in the first place Hypothyroidism Lymphedema Mixed hyperlipidemia Morbid (severe) obesity due to excess calories Non-pressure chronic ulcer left lower leg, limited to breakdown skin Obesity Obstructive sleep apnea Osteoarthritis Right hip pain Skin cancer Type 2 diabetes mellitus without complications Venous insufficiency Surgical History H/O sigmoidoscopy (06/12/18) History of open reduction and internal fixation (ORIF) procedure (05/28/18) Left supracondylar intercondylar distal femur fracture, right trimalleolar ankle fracture and right syndesmosis right ankle Kidney transplant recipient x2 1992 & 1993 S/P aneurysm repair (~1992) S/P PICC central line placement (06/02/18) Status post clamping of cerebral aneurysm Family History Father Heart disease Myocardial infarction Mother Hx of CABG Grandmother Diabetes Paternal Social History marital status: 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 [employer] alcohol intake frequency: holiday/special occasion only substance use type: does not use MEDS/ALLERGIES Home Medications and Allergies Home Medications Medication Instructions Recorded Confirmed Type cyclosporine modified 25 mg PO BIDD 07/09/18 10/10/20 History hydrocodone-acetaminophen 1 - 2 tab PO Q4H PRN 07/09/18 10/10/20 History levothyroxine 100 mcg PO DAILY 07/09/18 10/10/20 History mycophenolate mofetil 500 mg PO BIDD 07/09/18 10/10/20 History ondansetron 4 mg SL Q6HP PRN 07/09/18 10/10/20 History prednisone 5 mg PO DAILY 07/09/18 10/10/20 History metoprolol tartrate 50 mg PO BID 11/27/19 10/10/20 History allopurinol 50 mg PO Q48 #10 tab 09/20/20 10/10/20 Rx tamsulosin 0.4 mg PO HS #30 cap 09/20/20 Rx Humalog Mix 75-25(U-100)Insuln See Protocol .ROUTE PRN PRN 10/10/20 10/10/20 History Allergies Allergy/AdvReac Type Severity Reaction Status Date / Time walnut Allergy Severe Anaphylaxis Verified 10/10/20 15:39 morphine Allergy Mild Rash Verified 10/10/20 15:39 EXAM Constitutional Vitals: Pulse Resp BP Pulse Ox 73 24 H 99/45 95 02/25/21 15:30 02/25/21 12:31 02/25/21 15:30 02/25/21 15:30 General appearance: disheveled and morbidly obese; no cooperative and no no acute distress Head Head exam: Present atraumatic and normocephalic Eye Eye exam: Present EOMI and PERRL ENT ENT exam: Present mucous membranes moist, normal exam and normal external ear exam Additional comments: Nasal cannula in place Neck Neck exam: Present normal inspection; Absent lymphadenopathy, tenderness and thyromegaly Respiratory Respiratory exam: Present decreased breath sounds; Absent accessory muscle use, respiratory distress and wheezes Cardiovascular Cardiovascular exam: Present normal rate and rhythm; Absent JVD GI/Abdominal GI/Abdominal exam: Present normal bowel sounds and soft; Absent organomegaly and tenderness Additional comments: Jordan catheter in place Extremities Exam Extremities exam: Present full ROM, normal capillary refill, normal inspection and pedal edema; Absent tenderness Neurological Exam Neurological exam: Present alert, CN II-XII intact and oriented X3; Absent motor sensory deficit Psychiatric Psychiatric exam: Present normal affect and normal mood; Absent anxious and depressed Skin Skin exam: Present dry and intact DATA Data Completed and Pending Labs: Labs from last 24 hours 02/25/21 02/25/21 02/25/21 13:42 13:42 12:38 WBC RBC Hgb Hct POC Hct 36 MCV MCH MCHC RDW Plt Count MPV Neut % (Auto) Lymph % (Auto) Bailey % (Auto) Eos % (Auto) Baso % (Auto) Lymph # (Auto) Bailey # (Auto) Eos # (Auto) Baso # (Auto) Absolute Neutrophils POC Sodium 134 Sodium 134 POC Potassium 5.1 Potassium 5.4 H POC Chloride 98 Chloride 98 Carbon Dioxide 30 POC Total CO2 30 Anion Gap 6.0 L POC BUN 40 H BUN 41 H Creatinine 1.2 H POC Creatinine 1.1 GFR Calculation 45 Glucose 274 H POC Glucose 279 H Calcium 8.0 L POC WB Ioniz Calcium 1.08 L Total Bilirubin 0.5 AST < 5 ALT < 5 Alkaline Phosphatase 76 Troponin T 0.04 H* NT-Pro-B Natriuret Pep 2972.0 H Total Protein 5.6 L Albumin 2.3 L Globulin 3.3 Albumin/Globulin Ratio 0.7 L 02/25/21 12:38 WBC 11.1 H RBC 4.27 Hgb 11.3 Hct 38.5 POC Hct MCV 90.2 MCH 26.5 MCHC 29.4 L RDW 15.6 H Plt Count 231 MPV 9.4 Neut % (Auto) 72.3 Lymph % (Auto) 21.1 Bailey % (Auto) 4.9 Eos % (Auto) 1.2 Baso % (Auto) 0.5 Lymph # (Auto) 2.33 Bailey # (Auto) 0.54 Eos # (Auto) 0.13 Baso # (Auto) 0.06 Absolute Neutrophils 7.99 POC Sodium Sodium POC Potassium Potassium POC Chloride Chloride Carbon Dioxide POC Total CO2 Anion Gap POC BUN BUN Creatinine POC Creatinine GFR Calculation Glucose POC Glucose Calcium POC WB Ioniz Calcium Total Bilirubin AST ALT Alkaline Phosphatase Troponin T NT-Pro-B Natriuret Pep Total Protein Albumin Globulin Albumin/Globulin Ratio A/P Assessment and plan (1) Acute and chronic respiratory failure: Status: Acute (2) Type 2 diabetes mellitus without complications: Status: Chronic (3) Morbid (severe) obesity due to excess calories: Status: Chronic (4) CHF exacerbation: Status: Acute (5) Hyperkalemia: Status: Acute (6) Hypertension: Status: Chronic (7) Gout: Status: Chronic (8) Hypothyroidism: Status: Chronic (9) Obstructive sleep apnea: Status: Chronic (10) ADPKD (autosomal dominant polycystic kidney disease): Status: Chronic Comment: Expected appearance on recent renal ultrasound, nothing to suggest an abscess or infected cyst (11) End stage renal disease: Status: Chronic Narrative A/P Narrative: Assessment and Plans: 1. Acute on chronic respiratory failure associated with CHF exacerbation: Admit to inpatient PCU with telemetry Intake and output Daily weigh 2L/day fluid restriction Oxygen therapy titrate to achieve spo2 >=88% Lasix 20mg IV BID No beta petrona in face of exacerbation Lisinopril 2.5mg PO daily 2D echocardiogram PT OT evaluation for potential treatment Also cover patient with antibiotics (Rocephin and Zithromax) for community acquired pneumonia given mildly elevated WBC Blood culture cbc w/ auto diff in the morning to trend WBC 2. JUVENTINO: CPAP at night while sleeping Need outpatient sleep study 3. T2DM: HgA1c Hold any oral hypoglycemics SSI AC HS Accu Chek AC HS Hypoglycemia protocol Diabetic diet 4. Essential HTN: Currently soft blood pressure Lasix 20mg IV BID Lisinopril Hold any other antihypertensives 5. Hypothyroidism: Continue thyroid replacement therapy 6. Hyperkalemia: Lasix 20mg IV BID Repeat CMP in the morning to trend serum potassium level 7. ESRD s/p renal transplant: Avoid nephrotoxic agents Continue post renal transplant meds including CellCept and steroid 8. 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 Gout: Continue Allopurinol GI ppx: not currently indicated DVT ppx: Heparin Code status: Full Prognosis: extremely guarded Disposition: inpatient PCU; PT OT evaluation for placement Time Spent With Patient Time: Total time spent is greater than 50% in coordination of care (as documented) at patient's floor/unit and/or counseling patient: Total time spent with greater than 50% in coordination of care (as documented) at patient's floor/unit and/or counseling patient:: Greater than 35 minutes
--- NOTE | 2021-02-25 16:46 | EKG ---
[facility] Test Date: 2021-02-25 Pat Name: Marialuisa Champagne Department: ED Room: Gender: Female [employer]: : 1950 Requested By: Nathen Aleman Order Number: [id number] Reading MD: Aric Sawyer Measurements Intervals [place] Rate: 74 P: -2 DC: 228 QRS: -57 QRSD: 106 T: 75 QT: 364 QTc: 404 Interpretive Statements SINUS RHYTHM FIRST DEGREE AV BLOCK LEFT ANTERIOR FASCICULAR BLOCK Electronically Signed On 02-25-2021 16:46:39 PDT by Aric Sawyer /store/[email or web address]/[id number]/[id number].pdf
[2021-02-25] MEDS ORDERED: AZITHROMYCIN 500 MG in DEXTROSE 5% IN WATER 250 ML IV SCH ×2 (17:37→18:00)
[2021-02-25] MEDS ORDERED: DEXTROSE 31 GM ORAL.SUSP PO PRN (17:37)
[2021-02-25] MEDS ORDERED: ONDANSETRON 4 MG/2 ML VIAL IV PRN (17:37)
[2021-02-25] MEDS ORDERED: DEXTROSE 50% 50 ML VIAL IV PRN (17:37)
[2021-02-25] MEDS ORDERED: LACTULOSE 20 GM/30 ML ORAL.SOL PO PRN (17:37)
[2021-02-25] MEDS ORDERED: IPRATROPIUM/ALBUTEROL 3 ML AMPUL.NEB NEB PRN (17:37)
[2021-02-25] MEDS ORDERED: cefTRIAXone 1 GM in DEXTROSE 5% IN WATER 50 ML IV SCH (17:37)
[2021-02-25] MEDS ORDERED: SENNOSIDES 1 TABLET PO PRN (17:37)
[2021-02-25] MEDS: INSULIN LISPRO 1 UNIT/0.01 ML UNIT SQ SCH ×2 (18:02→21:29)
[2021-02-25] MEDS: AZITHROMYCIN 500 MG in DEXTROSE 5% IN WATER 250 ML IV SCH (18:03)
[2021-02-25] MEDS ORDERED: HYDROcodone/APAP 10/325MG TABLET PO PRN (21:14)
[2021-02-25] MEDS: DOCUSATE SODIUM 100 MG CAPSULE PO SCH (21:30)
[2021-02-25] MEDS: HEPARIN 5,000 UNIT/ML VIAL SQ SCH (21:30)
[2021-02-25] MEDS: 0.9 % SODIUM CHLORIDE 10 ML SYRINGE IV SCH (21:31)
[2021-02-25] MEDS ORDERED: HYDROcodone/APAP 10/325MG TABLET PO ONE (22:05)
[2021-02-26 00:07] LABS: Estimated Average Glucose(eAG) 246 mg/dL; Hemoglobin A1C 10.2 % Hgb (4.0-6.0)
[2021-02-26] MEDS: 0.9 % SODIUM CHLORIDE 10 ML SYRINGE IV SCH ×3 (05:00→20:58)
[2021-02-26 06:37] LABS: ALT/SGPT < 5 U/L (<40); AST/SGOT < 5 U/L (<32); Albumin 2.5 gm/dL (3.2-5.2); Albumin/Globulin Ratio 0.7 (1.0-2.3); Alkaline Phosphatase 79 U/L (39-117); Bilirubin,Total 0.5 mg/dL (0.1-1.0); Blood Urea Nitrogen 42 mg/dL (8-23); Calcium 8.4 mg/dL (8.6-10.4); Carbon Dioxide 29 mmol/L (22-30); Chloride 97 mmol/L (96-108); Globulin 3.4 gm/dL (2.2-3.7); Glomerular Filtration Rate 45; Glucose 265 mg/dL (70-105)
[2021-02-26 07:07] LABS: Basophils # (Auto) 0.04 K/mcL (0.00-0.30); Basophils % (Auto) 0.4 % (0.0-2.0); Eosinophils # (Auto) 0.13 K/mcL (0.00-0.70); Eosinophils % (Auto) 1.1 % (0.0-7.0); Hematocrit 42.4 % (34.1-44.9); Hemoglobin 11.6 g/dL (11.2-15.7); Lymphocytes # (Auto) 3.36 K/mcL (1.50-4.80); Lymphocytes % (Auto) 29.6 % (15.5-49.0); Mean Cell Volume 93.8 fL (80.0-100.0); Mean Corpuscular HGB Conc 27.4 g/dL (31.0-36.0); Mean Platelet Volume 9.6 fL (7.4-10.4); Monocytes # (Auto) 0.72 K/mcL (0.10-0.90); Monocytes % (Auto) 6.3 % (1.0-12.0); Neutrophils % (Auto) 62.6 % (38.0-78.0); Platelet Count 211 K/mcL (140-440); RBC 4.52 M/mcL (3.59-5.38); Red Cell Distribution Width 15.8 % (11.5-14.5); WBC 11.3 K/mcL (4.5-11.0)
[2021-02-26] MEDS: FUROSEMIDE 20 MG/2 ML VIAL IV SCH ×2 (07:28→15:44)
[2021-02-26] MEDS: INSULIN LISPRO 1 UNIT/0.01 ML UNIT SQ SCH ×4 (07:28→20:57)
[2021-02-26] MEDS: HYDROcodone/APAP 10/325MG TABLET PO PRN ×2 (07:42→21:03)
[2021-02-26 07:43] LABS: ALT/SGPT < 5 U/L (<40); AST/SGOT 6 U/L (<32); Albumin 2.1 gm/dL (3.2-5.2); Albumin/Globulin Ratio 0.6 (1.0-2.3); Alkaline Phosphatase 78 U/L (39-117); Bilirubin,Total 0.5 mg/dL (0.1-1.0); Blood Urea Nitrogen 44 mg/dL (8-23); Calcium 8.2 mg/dL (8.6-10.4); Carbon Dioxide 25 mmol/L (22-30); Chloride 96 mmol/L (96-108); Globulin 3.7 gm/dL (2.2-3.7); Glomerular Filtration Rate 41; Glucose 169 mg/dL (70-105)
[2021-02-26] MEDS: HEPARIN 5,000 UNIT/ML VIAL SQ SCH ×2 (08:41→20:57)
[2021-02-26] MEDS: cefTRIAXone 1 GM VIAL IV SCH (08:41)
[2021-02-26] MEDS: DOCUSATE SODIUM 100 MG CAPSULE PO SCH ×2 (08:48→20:57)
[2021-02-26] MEDS ORDERED: CALCIUM GLUCONATE 13.95 MEQ in DEXTROSE 5% IN WATER 50 ML IV ONE (09:25)
[2021-02-26] MEDS ORDERED: MECLIZINE 25 MG TABLET PO PRN (09:29)
[2021-02-26] MEDS: LISINOPRIL 5 MG TABLET PO SCH (09:29)
[2021-02-26] MEDS ORDERED: ALBUTEROL SULFATE 200 PUFF INHALER INH PRN (09:30)
[2021-02-26] MEDS ORDERED: HYDROcodone/APAP 10/325MG TABLET PO SCH (09:30)
--- NOTE | 2021-02-26 09:31 | Internal Med Progress Note ---
SUBJECTIVE Subjective Patient information: Note initiated : 02/26/21 at 9:26 am Service Date, if different from initiated Date: [] Patient: Marialuisa Champagne a 71 y/o F admitted on 02/25/21 for shortness of breath, low O2 sats. Chief Complaint: [CHF exacerbation] Interval history: History of present illness: Ms. Champagne is a 71 year old F history of CHF, morbid obesity, type 2 diabetes, end-stage renal disease status post kidney transplant, essential hypertension, gout, hypothyroidism, obstructive sleep apnea, presenting with several day history of shortness of breath and low oxygen saturations. Patient has been told that she would need CPAP for sleep apnea but she never get one. She was at 1 time been told that she does not qualify for home oxygen although he she was also been told that she would probably benefit from it. Anyway, over the past couple of days, her has noticed patient to have increasing lethargy, increasing shortness of breath, as well as low oxygen saturation as read by the oxygen probe at home. As a result, he called EMS to send patients to our ED for further evaluation and treatments. Oxygen saturations was in the 50s when she arrived the ED on room air. She was subsequently been placed on nonrebreather oxygen and eventually been weaned down to 6 L nasal cannula oxygen's. Labs significant for mildly elevated white count at 11.1, potassium 5.4, serum creatinine 1.2, serum troponin 0 0.04 with baseline was 0.03, BNP at 3000. Chest x-ray suggestive of presence of pulmonary edema and CHF. 02/26: Been on 4L/min supplemental oxygen overnight and this morning. Was not no CPAP overnight. Afebrile. Urine output overnight not well documented. Subjective not obtained due to clinical situations. Constitutional Vitals: Vital Signs Temp Pulse Resp BP Pulse Ox 36.7 C 54 L 17 114/57 98 02/26/21 08:01 02/25/21 17:52 02/26/21 08:01 02/26/21 08:01 02/26/21 08:01 Period Temp Pulse Resp BP Sys/Howe Pulse Ox Last 24 Hr 36.1 C-36.8 C 54-75 13-24 90-115/42-81 87-100 Intake and Output 02/25/21 02/26/2121 21:59 05:59 13:59 Intake Total 350 250 0 Output Total 0 0 Balance 350 250 0 Weight 174.814 kg Intake & Output: Intake & Output 02/25/21 02/26/21 02/26/21 21:59 05:59 13:59 Intake Total 350 250 0 Output Total 0 0 Balance 350 250 0 Weight 174.814 kg Intake: IV 350 Zithromax 500 mg In Dextrose 5% 250 in Water 250 ml @ 250 mls/hr IV DAILY@1000 [facility] Rx#:[id number] Vibramycin 100 mg In Dextrose 5 100 % in Water 100 ml @ 100 mls/hr IV ONCE ONE Rx#:[id number] Oral 250 0 Output: Void Amount 0 0 Other: Meal Dinner Breakfast Percent of Meal Consumed 75% few bites Urine Appearance Clear # Bowel Movements 0 0 General appearance: cooperative, morbidly obese and no acute distress Exam: lethargic Head Head exam: Present atraumatic and normocephalic Eye Eye exam: Present EOMI and PERRL ENT ENT exam: Present mucous membranes moist, normal exam and normal external ear exam Additional comments: Nasal cannula in place Neck Neck exam: Present normal inspection; Absent lymphadenopathy, tenderness and thyromegaly Respiratory Respiratory exam: Present decreased breath sounds and rhonchi; Absent accessory muscle use, respiratory distress and wheezes Cardiovascular Cardiovascular exam: Present normal rate and rhythm; Absent JVD GI/Abdominal GI/Abdominal exam: Present normal bowel sounds and soft; Absent organomegaly and tenderness Extremities Exam Extremities exam: Present full ROM, normal capillary refill, normal inspection and pedal edema; Absent tenderness Neurological Exam Neurological exam: Present alert, CN II-XII intact and oriented X3; Absent motor sensory deficit Psychiatric Psychiatric exam: Present normal affect and normal mood; Absent anxious and depressed Skin Skin exam: Present dry and intact OBJ DATA Labs CBC & Chem 7: 02/26/21 05:25 02/26/21 05:25 Labs: Abnormal Lab Results 02/26/21 02/26/21 02/25/21 05:25 05:25 23:35 WBC 11.3 H MCH 25.7 L MCHC 27.4 L RDW 15.8 H Sodium 132 L Potassium 5.4 H Anion Gap POC BUN BUN 44 H Creatinine 1.3 H Glucose 169 H POC Glucose Hemoglobin A1c Calcium 8.2 L POC WB Ioniz Calcium Troponin T 0.04 H* NT-Pro-B Natriuret Pep Total Protein 5.8 L Albumin 2.1 L Albumin/Globulin Ratio 0.6 L 02/25/21 02/25/21 02/25/21 21:19 21:18 13:42 WBC MCH MCHC RDW Sodium Potassium 5.3 H Anion Gap POC BUN BUN 42 H Creatinine 1.2 H Glucose 265 H POC Glucose Hemoglobin A1c 10.2 H Calcium 8.4 L POC WB Ioniz Calcium Troponin T 0.05 H* NT-Pro-B Natriuret Pep 2972.0 H Total Protein Albumin 2.5 L Albumin/Globulin Ratio 0.7 L 02/25/21 02/25/21 02/25/21 13:42 12:38 12:38 WBC 11.1 H MCH MCHC 29.4 L RDW 15.6 H Sodium Potassium 5.4 H Anion Gap 6.0 L POC BUN 40 H BUN 41 H Creatinine 1.2 H Glucose 274 H POC Glucose 279 H Hemoglobin A1c Calcium 8.0 L POC WB Ioniz Calcium 1.08 L Troponin T 0.04 H* NT-Pro-B Natriuret Pep Total Protein 5.6 L Albumin 2.3 L Albumin/Globulin Ratio 0.7 L Meds: Medications Acetaminophen (Acetaminophen 325 Mg Tablet) 650 mg PO Q6HP PRN; Protocol PRN Reason: Per Pain Protocol/Fever > 101 Hydrocodone Bitart/Acetaminophen (Hydrocodone/Apap 10/325mg Tablet) 1 tab PO BIDP PRN; Protocol PRN Reason: Per Pain Protocol Last Admin: 02/26/21 07:42 Dose: 1 tab Documented by: Hydrocodone Bitart/Acetaminophen (Hydrocodone/Apap 10/325mg Tablet) 1 tab PO Q8H SHANNAN; Protocol Albuterol/Ipratropium (Ipratropium/Albuterol 3 Ml Ampul.Neb) 3 ml NEB Q4HRT PRN PRN Reason: Wheezing Allopurinol (Allopurinol 100 Mg Tablet) 100 mg PO DAILY [facility] Ceftriaxone Sodium (Ceftriaxone 1 Gm Vial) 1 gm IV DAILY [facility] Last Admin: 02/26/21 08:41 Dose: 1 gm Documented by: Cyclosporine (Cyclosporine, Modified 25 Mg Capsule) 50 mg PO DAILY [facility] Cyclosporine (Cyclosporine, Modified 25 Mg Capsule) 75 mg PO HS [facility] Last Admin: 02/25/21 21:28 Dose: 75 mg Documented by: Cyclosporine (Cyclosporine, Modified 25 Mg Capsule) 75 mg PO HS [facility] Cyclosporine (Cyclosporine, Modified 25 Mg Capsule) 50 mg PO QAM [facility] Dextrose (Dextrose 50% 50 Ml Vial) 0 ml IV UD PRN PRN Reason: Hypoglycemia Diagnostic Test (Pha) (Accu-Chek 1 Each Strip) 1 each FS [facility] Last Admin: 02/26/21 06:46 Dose: 1 each Documented by: Docusate Sodium (Docusate Sodium 100 Mg Capsule) 100 mg PO BID [facility] Last Admin: 02/26/21 08:48 Dose: 100 mg Documented by: Furosemide (Furosemide 20 Mg/2 Ml Vial) 20 mg IV BIDD [facility] Last Admin: 02/26/21 07:28 Dose: 20 mg Documented by: Glucose (Dextrose 31 Gm Oral.Susp) 15 gm PO PRN PRN PRN Reason: Hypoglycemia Heparin Sodium (Porcine) (Heparin 5,000 Unit/Ml Vial) 5,000 unit SQ Q12 [facility] Last Admin: 02/26/21 08:41 Dose: 5,000 unit Documented by: Azithromycin 500 mg/ Dextrose 250 mls @ 250 mls/hr IV DAILY@1000 [facility]; Protocol Stop: 02/27/21 10:59 Last Infusion: 02/25/21 19:03 Dose: Infused Documented by: Insulin Human Lispro (Insulin Lispro 1 Unit/0.01 Ml Unit) 0 unit SQ [facility]; Protocol Last Admin: 02/26/21 07:28 Dose: 3 units Documented by: Lactulose (Lactulose 20 Gm/30 Ml Oral.Hazel) 10 gm PO DAILYP PRN PRN Reason: Constipation Levothyroxine Sodium (Levothyroxine 100 Mcg Tablet) 100 mcg PO DAILY [facility] Lisinopril (Lisinopril 5 Mg Tablet) 2.5 mg PO DAILY [facility] Meclizine HCl (Meclizine (Pp) 25mg Chew Tab (#8)) tablet PO QID [facility] Non-Formulary Medication (Albuterol) 2 mcg INHALATION Q6HP PRN PRN Reason: sob Ondansetron HCl (Ondansetron 4 Mg/2 Ml Vial) 4 mg IV Q4HP PRN; Protocol PRN Reason: Nausea And Vomiting Prednisone (Prednisone 5 Mg Tablet) 5 mg PO DAILY [facility] Senna (Sennosides 1 Tablet) 2 tab PO HSP PRN PRN Reason: Constipation Sodium Chloride (0.9 % Sodium Chloride 10 Ml Syringe) 10 ml IV Q8 SHANNAN Last Admin: 02/26/21 05:00 Dose: 10 ml Documented by: A/P Assessment and plan (1) Acute and chronic respiratory failure: Status: Acute (2) Type 2 diabetes mellitus without complications: Status: Chronic (3) Morbid (severe) obesity due to excess calories: Status: Chronic (4) CHF exacerbation: Status: Acute (5) Hyperkalemia: Status: Acute (6) Hypertension: Status: Chronic (7) Gout: Status: Chronic (8) Hypothyroidism: Status: Chronic (9) Obstructive sleep apnea: Status: Chronic (10) ADPKD (autosomal dominant polycystic kidney disease): Status: Chronic Comment: Expected appearance on recent renal ultrasound, nothing to suggest an abscess or infected cyst (11) End stage renal disease: Status: Chronic Narrative A/P Narrative: Assessment and Plans: 1. Acute on chronic respiratory failure associated with CHF exacerbation: Stays in inpatient PCU with telemetry Intake and output Daily weigh 2L/day fluid restriction Oxygen therapy titrate to achieve spo2 >=88% Lasix 20mg IV BID No beta petrona in face of exacerbation Lisinopril 2.5mg PO daily 2D echocardiogram PT OT evaluation for potential treatment Also cover patient with antibiotics (Rocephin and Zithromax) for community acquired pneumonia given mildly elevated WBC Blood culture cbc w/ auto diff in the morning to trend WBC 2. JUVENTINO: CPAP at night while sleeping Need outpatient sleep study 3. T2DM: HgA1c Hold any oral hypoglycemics SSI AC HS Accu Chek AC HS Hypoglycemia protocol Diabetic diet 4. Essential HTN: Currently soft blood pressure Lasix 20mg IV BID Lisinopril Hold any other antihypertensives 5. Hypothyroidism: Continue thyroid replacement therapy 6. Hyperkalemia: Lasix 20mg IV BID CAlcium gluconate IV Insulin as per T2DM management Albuterol INH Repeat CMP in the morning to trend serum potassium level 7. ESRD s/p renal transplant: Avoid nephrotoxic agents Continue post renal transplant meds including CellCept and steroid 8. 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 Gout: Continue Allopurinol GI ppx: not currently indicated DVT ppx: Heparin Code status: Full Prognosis: extremely guarded Disposition: inpatient PCU; PT OT evaluation for placement Time Spent With Patient Time: Total time spent is greater than 50% in coordination of care (as documented) at patient's floor/unit and/or counseling patient: Total time spent with greater than 50% in coordination of care (as documented) at patient's floor/unit and/or counseling patient:: Greater than 35 minutes QUALITY VTE Deep Vein Thrombosis/Pulmonary Embolism Present on Admission: No
[2021-02-26] MEDS: AZITHROMYCIN 500 MG in DEXTROSE 5% IN WATER 250 ML IV SCH (11:06)
[2021-02-27] MEDS: 0.9 % SODIUM CHLORIDE 10 ML SYRINGE IV SCH ×3 (06:13→21:03)
[2021-02-27 06:32] LABS: Basophils # (Auto) 0.05 K/mcL (0.00-0.30); Basophils % (Auto) 0.5 % (0.0-2.0); Eosinophils % (Auto) 1.8 % (0.0-7.0); Hematocrit 40.1 % (34.1-44.9); Hemoglobin 11.1 g/dL (11.2-15.7); Lymphocytes # (Auto) 3.49 K/mcL (1.50-4.80); Lymphocytes % (Auto) 32.2 % (15.5-49.0); Mean Cell Volume 94.6 fL (80.0-100.0); Mean Corpuscular HGB Conc 27.7 g/dL (31.0-36.0); Mean Platelet Volume 9.7 fL (7.4-10.4); Monocytes # (Auto) 0.77 K/mcL (0.10-0.90); Monocytes % (Auto) 7.1 % (1.0-12.0); Neutrophils % (Auto) 58.4 % (38.0-78.0); Platelet Count 211 K/mcL (140-440); RBC 4.24 M/mcL (3.59-5.38); Red Cell Distribution Width 15.9 % (11.5-14.5); WBC 10.9 K/mcL (4.5-11.0)
[2021-02-27 07:17] LABS: ALT/SGPT < 5 U/L (<40); AST/SGOT 7 U/L (<32); Albumin 2.2 gm/dL (3.2-5.2); Albumin/Globulin Ratio 0.7 (1.0-2.3); Alkaline Phosphatase 84 U/L (39-117); Bilirubin,Total 0.6 mg/dL (0.1-1.0); Blood Urea Nitrogen 42 mg/dL (8-23); Calcium 8.3 mg/dL (8.6-10.4); Carbon Dioxide 26 mmol/L (22-30); Chloride 97 mmol/L (96-108); Globulin 3.2 gm/dL (2.2-3.7); Glomerular Filtration Rate 38; Glucose 145 mg/dL (70-105)
[2021-02-27] MEDS: DOCUSATE SODIUM 100 MG CAPSULE PO SCH ×2 (07:31→20:37)
--- NOTE | 2021-02-27 08:53 | Internal Med Progress Note ---
SUBJECTIVE Subjective Patient information: Note initiated : 02/27/21 at 8:50 am Service Date, if different from initiated Date: [] Patient: Marialuisa Champagne a 71 y/o F admitted on 02/25/21 for shortness of breath, low O2 sats. Chief Complaint: [CHF exacerbation] Interval history: History of present illness: Ms. Champagne is a 71 year old F history of CHF, morbid obesity, type 2 diabetes, end-stage renal disease status post kidney transplant, essential hypertension, gout, hypothyroidism, obstructive sleep apnea, presenting with several day history of shortness of breath and low oxygen saturations. Patient has been told that she would need CPAP for sleep apnea but she never get one. She was at 1 time been told that she does not qualify for home oxygen although he she was also been told that she would probably benefit from it. Anyway, over the past couple of days, her has noticed patient to have increasing lethargy, increasing shortness of breath, as well as low oxygen saturation as read by the oxygen probe at home. As a result, he called EMS to send patients to our ED for further evaluation and treatments. Oxygen saturations was in the 50s when she arrived the ED on room air. She was subsequently been placed on nonrebreather oxygen and eventually been weaned down to 6 L nasal cannula oxygen's. Labs significant for mildly elevated white count at 11.1, potassium 5.4, serum creatinine 1.2, serum troponin 0 0.04 with baseline was 0.03, BNP at 3000. Chest x-ray suggestive of presence of pulmonary edema and CHF. 02/26: Been on 4L/min supplemental oxygen overnight and this morning. Was not no CPAP overnight. Afebrile. Urine output overnight not well documented. Subjective not obtained due to clinical situations. 02/27: Blood culture Gram possitive cocci in one bottle. Currently on 2L/min supplemental oxygen. Afebrile. Urine output overnight not well documented. Subjective not obtained due to clinical situations. Constitutional Vitals: Vital Signs Temp Pulse Resp BP Pulse Ox 36.9 C 54 L 21 97/68 95 02/27/21 04:05 02/25/21 17:52 02/27/21 06:05 02/27/21 06:05 02/27/21 08:23 Period Temp Pulse Resp BP Sys/Howe Pulse Ox Last 24 Hr 36.7 C-37.3 C 80-153/38-117 85-100 Intake and Output 02/26/21 02/27/21 02/27/21 21:59 05:59 13:59 Intake Total 400 80 Output Total 1 Balance 400 79 Weight 176.493 kg Intake & Output: Intake & Output 02/26/21 02/27/21 02/27/21 21:59 05:59 13:59 Intake Total 400 80 Output Total 1 Balance 400 79 Weight 176.493 kg Intake: Oral 400 80 Output: # of times incontinent of urine 1 Other: Meal Dinner Percent of Meal Consumed Refused Stool Size Moderate Stool Color Brown Yellow Stool Consistency Soft Loose # of times incontinent of 1 Bowels General appearance: cooperative, disheveled and morbidly obese Exam: lethargic Head Head exam: Present atraumatic and normocephalic Eye Eye exam: Present EOMI and PERRL ENT ENT exam: Present mucous membranes moist, normal exam and normal external ear exam Additional comments: Oxygen mask in place Neck Neck exam: Present normal inspection; Absent lymphadenopathy, tenderness and thyromegaly Respiratory Respiratory exam: Present decreased breath sounds; Absent accessory muscle use, respiratory distress and wheezes Cardiovascular Cardiovascular exam: Present normal rate and rhythm; Absent JVD GI/Abdominal GI/Abdominal exam: Present normal bowel sounds and soft; Absent organomegaly and tenderness Extremities Exam Extremities exam: Present full ROM, normal capillary refill, normal inspection and pedal edema; Absent tenderness Neurological Exam Neurological exam: Present alert, CN II-XII intact and oriented X3; Absent motor sensory deficit Psychiatric Psychiatric exam: Present normal affect and normal mood; Absent anxious and depressed Skin Skin exam: Present abrasion and dry; Absent intact OBJ DATA Labs CBC & Chem 7: 02/27/21 05:17 02/27/21 05:17 Labs: Abnormal Lab Results 02/27/21 02/27/21 02/26/21 05:17 05:17 05:25 WBC Hgb 11.1 L MCH MCHC 27.7 L RDW 15.9 H Sodium 132 L Potassium 5.4 H Anion Gap POC BUN BUN 42 H 44 H Creatinine 1.4 H 1.3 H Glucose 145 H 169 H POC Glucose Hemoglobin A1c Calcium 8.3 L 8.2 L POC WB Ioniz Calcium Troponin T NT-Pro-B Natriuret Pep Total Protein 5.4 L 5.8 L Albumin 2.2 L 2.1 L Albumin/Globulin Ratio 0.7 L 0.6 L 02/26/21 02/25/21 02/25/21 05:25 23:35 21:19 WBC 11.3 H Hgb MCH 25.7 L MCHC 27.4 L RDW 15.8 H Sodium Potassium Anion Gap POC BUN BUN Creatinine Glucose POC Glucose Hemoglobin A1c Calcium POC WB Ioniz Calcium Troponin T 0.04 H* 0.05 H* NT-Pro-B Natriuret Pep Total Protein Albumin Albumin/Globulin Ratio 02/25/21 02/25/21 02/25/21 21:18 13:42 13:42 WBC Hgb MCH MCHC RDW Sodium Potassium 5.3 H Anion Gap POC BUN BUN 42 H Creatinine 1.2 H Glucose 265 H POC Glucose Hemoglobin A1c 10.2 H Calcium 8.4 L POC WB Ioniz Calcium Troponin T 0.04 H* NT-Pro-B Natriuret Pep 2972.0 H Total Protein Albumin 2.5 L Albumin/Globulin Ratio 0.7 L 02/25/21 02/25/21 12:38 12:38 WBC 11.1 H Hgb MCH MCHC 29.4 L RDW 15.6 H Sodium Potassium 5.4 H Anion Gap 6.0 L POC BUN 40 H BUN 41 H Creatinine 1.2 H Glucose 274 H POC Glucose 279 H Hemoglobin A1c Calcium 8.0 L POC WB Ioniz Calcium 1.08 L Troponin T NT-Pro-B Natriuret Pep Total Protein 5.6 L Albumin 2.3 L Albumin/Globulin Ratio 0.7 L Meds: Medications Acetaminophen (Acetaminophen 325 Mg Tablet) 650 mg PO Q6HP PRN; Protocol PRN Reason: Per Pain Protocol/Fever > 101 Hydrocodone Bitart/Acetaminophen (Hydrocodone/Apap 10/325mg Tablet) 1 tab PO BIDP PRN; Protocol PRN Reason: Per Pain Protocol Last Admin: 02/26/21 21:03 Dose: 1 tab Documented by: Albuterol Sulfate (Albuterol Sulfate 200 Puff Inhaler) 2 puff INH Q6HP PRN PRN Reason: Shortness Of Breath Albuterol/Ipratropium (Ipratropium/Albuterol 3 Ml Ampul.Neb) 3 ml NEB Q4HRT PRN PRN Reason: Wheezing Allopurinol (Allopurinol 100 Mg Tablet) 100 mg PO DAILY [facility] Ceftriaxone Sodium (Ceftriaxone 1 Gm Vial) 1 gm IV DAILY [facility] Last Admin: 02/26/21 08:41 Dose: 1 gm Documented by: Cyclosporine (Cyclosporine, Modified 25 Mg Capsule) 50 mg PO DAILY [facility] Last Admin: 02/26/21 10:00 Dose: 50 mg Documented by: Cyclosporine (Cyclosporine, Modified 25 Mg Capsule) 75 mg PO HS [facility] Last Admin: 02/26/21 20:57 Dose: 75 mg Documented by: Dextrose (Dextrose 50% 50 Ml Vial) 0 ml IV UD PRN PRN Reason: Hypoglycemia Diagnostic Test (Pha) (Accu-Chek 1 Each Strip) 1 each FS [facility] Last Admin: 02/26/21 20:39 Dose: 1 each Documented by: Docusate Sodium (Docusate Sodium 100 Mg Capsule) 100 mg PO BID [facility] Last Admin: 02/27/21 07:31 Dose: Not Given Documented by: Furosemide (Furosemide 20 Mg/2 Ml Vial) 40 mg IV BIDD [facility] Glucose (Dextrose 31 Gm Oral.Susp) 15 gm PO PRN PRN PRN Reason: Hypoglycemia Heparin Sodium (Porcine) (Heparin 5,000 Unit/Ml Vial) 5,000 unit SQ Q12 [facility] Last Admin: 02/26/21 20:57 Dose: 5,000 unit Documented by: Azithromycin 500 mg/ Dextrose 250 mls @ 250 mls/hr IV DAILY@1000 [facility]; Protocol Stop: 02/27/21 10:59 Last Infusion: 02/26/21 13:36 Dose: Infused Documented by: Insulin Human Lispro (Insulin Lispro 1 Unit/0.01 Ml Unit) 0 unit SQ [facility]; Protocol Last Admin: 02/26/21 20:57 Dose: 3 units Documented by: Lactulose (Lactulose 20 Gm/30 Ml Oral.Hazel) 10 gm PO DAILYP PRN PRN Reason: Constipation Levothyroxine Sodium (Levothyroxine 100 Mcg Tablet) 100 mcg PO ACB [facility] Lisinopril (Lisinopril 5 Mg Tablet) 2.5 mg PO DAILY [facility] Last Admin: 02/26/21 09:29 Dose: Not Given Documented by: Meclizine HCl (Meclizine 25 Mg Tablet) 25 mg PO QIDP PRN PRN Reason: Vertigo Ondansetron HCl (Ondansetron 4 Mg/2 Ml Vial) 4 mg IV Q4HP PRN; Protocol PRN Reason: Nausea And Vomiting Prednisone (Prednisone 5 Mg Tablet) 5 mg PO [facility] Senna (Sennosides 1 Tablet) 2 tab PO HSP PRN PRN Reason: Constipation Sodium Chloride (0.9 % Sodium Chloride 10 Ml Syringe) 10 ml IV Q8 [facility] Last Admin: 02/27/21 06:13 Dose: 10 ml Documented by: A/P Assessment and plan (1) Acute and chronic respiratory failure: Status: Acute (2) Type 2 diabetes mellitus without complications: Status: Chronic (3) Morbid (severe) obesity due to excess calories: Status: Chronic (4) CHF exacerbation: Status: Acute (5) Hyperkalemia: Status: Acute (6) Hypertension: Status: Chronic (7) Gout: Status: Chronic (8) Hypothyroidism: Status: Chronic (9) Obstructive sleep apnea: Status: Chronic (10) ADPKD (autosomal dominant polycystic kidney disease): Status: Chronic Comment: Expected appearance on recent renal ultrasound, nothing to suggest an abscess or infected cyst (11) End stage renal disease: Status: Chronic (12) Gram-positive cocci bacteremia: Status: Acute (13) Delirium: Status: Acute Narrative A/P Narrative: Assessment and Plans: 1. Acute on chronic respiratory failure associated with CHF exacerbation: Stays in inpatient PCU with telemetry Intake and output Daily weigh 2L/day fluid restriction Oxygen therapy titrate to achieve spo2 >=88% Lasix 40mg IV BID Add Albumin to try to shift fluid from extravescular space to intravescular space No beta petrona in face of exacerbation Lisinopril 2.5mg PO daily 2D echocardiogram, results pending PT OT evaluation for potential treatment Also cover patient with antibiotics (Rocephin and Zithromax) for community acquired pneumonia given mildly elevated WBC Blood culture growing gram positive cocci in one bottle, see #10 cbc w/ auto diff in the morning to trend WBC 2. JUVENTINO: CPAP at night while sleeping Need outpatient sleep study 3. T2DM: HgA1c Hold any oral hypoglycemics SSI AC HS Accu Chek AC HS Hypoglycemia protocol Diabetic diet 4. Essential HTN: Currently soft blood pressure Lasix 40mg IV BID Lisinopril Hold any other antihypertensives 5. Hypothyroidism: Continue thyroid replacement therapy 6. Hyperkalemia: RESOLVED Lasix 40mg IV BID s/p Calcium gluconate IV Insulin as per T2DM management Albuterol INH Repeat CMP in the morning to trend serum potassium level 7. ESRD s/p renal transplant: Avoid nephrotoxic agents Continue post renal transplant medications including CellCept and steroid 8. 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 Gout: Continue Allopurinol 10. Gram positive cocci bacteremia: DDx: skin contamination Patient is already on Rocephin and Zithromax for coverage of community acquired pneumonia Repeat blood culture X2 on 02/27 11. Delirium: DDx: Hypoxia/hypoxemia from CHF exacerbation, vs hepatic encephalopathy from undiagnosed cirrhosis, vs acute intracranial pathologies Treat CHF exacerbation according to #[address] head w/o contrast to rule out acute intracranial pathologies Frequent reorientation during the day and protected sleep time during the night. GI ppx: not currently indicated DVT ppx: Heparin Code status: Full Prognosis: extremely guarded Disposition: inpatient PCU; PT OT evaluation for placement Time Spent With Patient Time: Total time spent is greater than 50% in coordination of care (as documented) at patient's floor/unit and/or counseling patient: QUALITY VTE Deep Vein Thrombosis/Pulmonary Embolism Present on Admission: No
[2021-02-27] MEDS: INSULIN LISPRO 1 UNIT/0.01 ML UNIT SQ SCH ×4 (10:26→21:06)
[2021-02-27] MEDS: LEVOTHYROXINE 100 MCG TABLET PO SCH (11:19)
[2021-02-27] MEDS: ACETAMINOPHEN 325 MG TABLET PO PRN (11:19)
[2021-02-27] MEDS: FUROSEMIDE 20 MG/2 ML VIAL IV SCH ×2 (11:20→16:15)
[2021-02-27] MEDS: cefTRIAXone 1 GM VIAL IV SCH (11:20)
[2021-02-27] MEDS: ALLOPURINOL 100 MG TABLET PO SCH (11:20)
[2021-02-27] MEDS: predniSONE 5 MG TABLET PO SCH (11:20)
[2021-02-27] MEDS: AZITHROMYCIN 500 MG in DEXTROSE 5% IN WATER 250 ML IV SCH (11:21)
[2021-02-27] MEDS: LISINOPRIL 5 MG TABLET PO SCH (11:21)
[2021-02-27] MEDS: ALBUMIN HUMAN 25 GM/100 ML BAG IV SCH ×3 (11:21→15:23)
[2021-02-27] MEDS: HEPARIN 5,000 UNIT/ML VIAL SQ SCH ×2 (11:21→21:01)
[2021-02-27] MEDS: CARBOXYMETHYLCELLULOSE SODIUM 1 EACH DROPER.GEL OP SCH ×2 (13:30→21:02)
[2021-02-27] MEDS: KETOROLAC 30 MG/ML VIAL IV PRN ×2 (13:30→21:02)
[2021-02-27] MEDS ORDERED: diphenhydrAMINE 50 MG/ML VIAL IV PRN (17:07)
[2021-02-28] MEDS: 0.9 % SODIUM CHLORIDE 10 ML SYRINGE IV SCH ×3 (05:39→20:57)
[2021-02-28 06:27] LABS: Basophils # (Auto) 0.02 K/mcL (0.00-0.30); Basophils % (Auto) 0.3 % (0.0-2.0); Eosinophils # (Auto) 0.13 K/mcL (0.00-0.70); Eosinophils % (Auto) 1.8 % (0.0-7.0); Hemoglobin 9.6 g/dL (11.2-15.7); Lymphocytes # (Auto) 2.25 K/mcL (1.50-4.80); Lymphocytes % (Auto) 30.7 % (15.5-49.0); Mean Cell Volume 91.9 fL (80.0-100.0); Mean Corpuscular HGB Conc 29.1 g/dL (31.0-36.0); Mean Platelet Volume 9.4 fL (7.4-10.4); Monocytes # (Auto) 0.46 K/mcL (0.10-0.90); Monocytes % (Auto) 6.3 % (1.0-12.0); Neutrophils % (Auto) 60.9 % (38.0-78.0); Platelet Count 182 K/mcL (140-440); RBC 3.59 M/mcL (3.59-5.38); Red Cell Distribution Width 15.8 % (11.5-14.5); WBC 7.3 K/mcL (4.5-11.0)
[2021-02-28 07:01] LABS: ALT/SGPT < 5 U/L (<40); AST/SGOT 6 U/L (<32); Albumin 2.4 gm/dL (3.2-5.2); Albumin/Globulin Ratio 0.9 (1.0-2.3); Alkaline Phosphatase 65 U/L (39-117); Bilirubin,Total 0.6 mg/dL (0.1-1.0); Blood Urea Nitrogen 47 mg/dL (8-23); Carbon Dioxide 28 mmol/L (22-30); Chloride 96 mmol/L (96-108); Globulin 2.8 gm/dL (2.2-3.7); Glomerular Filtration Rate 28; Glucose 149 mg/dL (70-105)
[2021-02-28] MEDS: INSULIN LISPRO 1 UNIT/0.01 ML UNIT SQ SCH ×4 (08:32→20:45)
[2021-02-28] MEDS: cefTRIAXone 1 GM VIAL IV SCH (08:44)
[2021-02-28] MEDS: HEPARIN 5,000 UNIT/ML VIAL SQ SCH ×2 (08:44→20:55)
[2021-02-28] MEDS: FUROSEMIDE 20 MG/2 ML VIAL IV SCH ×3 (08:45→20:56)
[2021-02-28] MEDS: DOCUSATE SODIUM 100 MG CAPSULE PO SCH ×2 (08:45→20:55)
[2021-02-28] MEDS: LEVOTHYROXINE 100 MCG TABLET PO SCH (08:46)
[2021-02-28] MEDS: ALLOPURINOL 100 MG TABLET PO SCH (08:46)
[2021-02-28] MEDS: predniSONE 5 MG TABLET PO SCH (08:46)
[2021-02-28] MEDS: LISINOPRIL 5 MG TABLET PO SCH (08:46)
[2021-02-28] MEDS: CARBOXYMETHYLCELLULOSE SODIUM 1 EACH DROPER.GEL OP SCH ×2 (08:46→20:56)
[2021-02-28] MEDS ORDERED: LORazepam 2 MG/ML VIAL IV PRN (09:31)
--- NOTE | 2021-02-28 09:31 | Internal Med Progress Note ---
SUBJECTIVE Subjective Patient information: Note initiated : 02/28/21 at 9:29 am Service Date, if different from initiated Date: [] Patient: Marialuisa Champagne a 71 y/o F admitted on 02/25/21 for shortness of breath, low O2 sats. Chief Complaint: [CHF exacerbation] Interval history: History of present illness: Ms. Champagne is a 71 year old F history of CHF, morbid obesity, type 2 diabetes, end-stage renal disease status post kidney transplant, essential hypertension, gout, hypothyroidism, obstructive sleep apnea, presenting with several day history of shortness of breath and low oxygen saturations. Patient has been told that she would need CPAP for sleep apnea but she never get one. She was at 1 time been told that she does not qualify for home oxygen although he she was also been told that she would probably benefit from it. Anyway, over the past couple of days, her has noticed patient to have increasing lethargy, increasing shortness of breath, as well as low oxygen saturation as read by the oxygen probe at home. As a result, he called EMS to send patients to our ED for further evaluation and treatments. Oxygen saturations was in the 50s when she arrived the ED on room air. She was subsequently been placed on nonrebreather oxygen and eventually been weaned down to 6 L nasal cannula oxygen's. Labs significant for mildly elevated white count at 11.1, potassium 5.4, serum creatinine 1.2, serum troponin 0 0.04 with baseline was 0.03, BNP at 3000. Chest x-ray suggestive of presence of pulmonary edema and CHF. 02/26: Been on 4L/min supplemental oxygen overnight and this morning. Was not no CPAP overnight. Afebrile. Urine output overnight not well documented. Subjective not obtained due to clinical situations. 02/27: Blood culture Gram possitive cocci in one bottle. Currently on 2L/min supplemental oxygen. Afebrile. Urine output overnight not well documented. Subjective not obtained due to clinical situations. 02/28: Blood culture from admission: coagulase negative staph; repeat blood culture no growth. On BiPAP 12/5cmH2O overnighy, currently on nasal cannula oxygen. s/p Jordan catheter insertion yesterday. c/o moderate generalized body pain. c/o moderate SOB. c/o mild anxiety. Denies fever or chills or sweating. Constitutional Vitals: Vital Signs Temp Pulse Resp BP Pulse Ox 35.9 C L 82 16 114/49 96 02/28/21 08:02 02/28/21 08:02 02/28/21 08:02 02/28/21 08:02 02/28/21 08:12 Period Temp Pulse Resp BP Sys/Howe Pulse Ox Last 24 Hr 35.9 C-37.9 C 68-98 15-29 88-125/33-56 91-99 Intake and Output 02/27/21 02/28/21 02/28/21 21:59 05:59 13:59 Intake Total 650 180 Output Total 450 70 43 Balance 200 110 -43 Weight 178.489 kg Intake & Output: Intake & Output 02/27/21 02/28/21 02/28/21 21:59 05:59 13:59 Intake Total 650 180 Output Total 450 70 43 Balance 200 110 -43 Weight 178.489 kg Intake: Nourishment/Supplement quantity 50 (ml) IV 200 Oral 400 180 Output: Urine Catheter Amount 450 70 43 Uretheral (Jordan) 400 Other: Meal Nourishment/Supplement Urine Appearance Clear Clear Uretheral (Jordan) Sediment Urine Color Dark Kimberly Dark Kimberly Dark Kimberly Uretheral (Jordan) Dark Yellow Urine Odor Normal General appearance: cooperative, disheveled, morbidly obese and no acute distress Exam: lethargic Head Head exam: Present atraumatic and normocephalic Eye Eye exam: Present EOMI and PERRL ENT ENT exam: Present mucous membranes moist, normal exam and normal external ear exam Additional comments: Nasal cannula in place Neck Neck exam: Present normal inspection; Absent lymphadenopathy, tenderness and thyromegaly Respiratory Respiratory exam: Present decreased breath sounds; Absent accessory muscle use, respiratory distress and wheezes Cardiovascular Cardiovascular exam: Present normal rate and rhythm; Absent JVD GI/Abdominal GI/Abdominal exam: Present normal bowel sounds and soft; Absent organomegaly and tenderness Additional comments: Jordan catheter in place Extremities Exam Extremities exam: Present full ROM, normal capillary refill and normal inspection; Absent tenderness Neurological Exam Neurological exam: Present alert, CN II-XII intact and oriented X3; Absent motor sensory deficit Psychiatric Psychiatric exam: Present normal affect and normal mood; Absent anxious and depressed Skin Skin exam: Present dry and intact Additional comments: Multiple skin exfoliations OBJ DATA Labs CBC & Chem 7: 02/28/21 05:20 02/28/21 05:20 Labs: Abnormal Lab Results 02/28/21 02/28/21 02/27/21 05:20 05:20 05:17 WBC Hgb 9.6 L Hct 33.0 L MCH MCHC 29.1 L RDW 15.8 H Sodium Potassium Anion Gap POC BUN BUN 47 H 42 H Creatinine 1.8 H 1.4 H Glucose 149 H 145 H POC Glucose Hemoglobin A1c Calcium 8.0 L 8.3 L POC WB Ioniz Calcium Troponin T NT-Pro-B Natriuret Pep Total Protein 5.2 L 5.4 L Albumin 2.4 L 2.2 L Albumin/Globulin Ratio 0.9 L 0.7 L 02/27/21 02/26/21 02/26/21 05:17 05:25 05:25 WBC 11.3 H Hgb 11.1 L Hct MCH 25.7 L MCHC 27.7 L 27.4 L RDW 15.9 H 15.8 H Sodium 132 L Potassium 5.4 H Anion Gap POC BUN BUN 44 H Creatinine 1.3 H Glucose 169 H POC Glucose Hemoglobin A1c Calcium 8.2 L POC WB Ioniz Calcium Troponin T NT-Pro-B Natriuret Pep Total Protein 5.8 L Albumin 2.1 L Albumin/Globulin Ratio 0.6 L 02/25/21 02/25/21 02/25/21 23:35 21:19 21:18 WBC Hgb Hct MCH MCHC RDW Sodium Potassium 5.3 H Anion Gap POC BUN BUN 42 H Creatinine 1.2 H Glucose 265 H POC Glucose Hemoglobin A1c 10.2 H Calcium 8.4 L POC WB Ioniz Calcium Troponin T 0.04 H* 0.05 H* NT-Pro-B Natriuret Pep Total Protein Albumin 2.5 L Albumin/Globulin Ratio 0.7 L 02/25/21 02/25/21 02/25/21 13:42 13:42 12:38 WBC Hgb Hct MCH MCHC RDW Sodium Potassium 5.4 H Anion Gap 6.0 L POC BUN 40 H BUN 41 H Creatinine 1.2 H Glucose 274 H POC Glucose 279 H Hemoglobin A1c Calcium 8.0 L POC WB Ioniz Calcium 1.08 L Troponin T 0.04 H* NT-Pro-B Natriuret Pep 2972.0 H Total Protein 5.6 L Albumin 2.3 L Albumin/Globulin Ratio 0.7 L 02/25/21 12:38 WBC 11.1 H Hgb Hct MCH MCHC 29.4 L RDW 15.6 H Sodium Potassium Anion Gap POC BUN BUN Creatinine Glucose POC Glucose Hemoglobin A1c Calcium POC WB Ioniz Calcium Troponin T NT-Pro-B Natriuret Pep Total Protein Albumin Albumin/Globulin Ratio Meds: Medications Acetaminophen (Acetaminophen 325 Mg Tablet) 650 mg PO Q6HP PRN; Protocol PRN Reason: Per Pain Protocol/Fever > 101 Last Admin: 02/27/21 11:19 Dose: 650 mg Documented by: Hydrocodone Bitart/Acetaminophen (Hydrocodone/Apap 10/325mg Tablet) 1 tab PO BIDP PRN; Protocol PRN Reason: Per Pain Protocol Last Admin: 02/26/21 21:03 Dose: 1 tab Documented by: Albuterol Sulfate (Albuterol Sulfate 200 Puff Inhaler) 2 puff INH Q6HP PRN PRN Reason: Shortness Of Breath Albuterol/Ipratropium (Ipratropium/Albuterol 3 Ml Ampul.Neb) 3 ml NEB Q4HRT PRN PRN Reason: Wheezing Allopurinol (Allopurinol 100 Mg Tablet) 100 mg PO DAILY [facility] Last Admin: 02/28/21 08:46 Dose: 100 mg Documented by: Artificial Tears (Carboxymethylcellulose Sodium 1 Each Droper.Gel) 1 each OP BID [facility] Last Admin: 02/28/21 08:46 Dose: 1 each Documented by: Ceftriaxone Sodium (Ceftriaxone 1 Gm Vial) 1 gm IV DAILY [facility] Last Admin: 02/28/21 08:44 Dose: 1 gm Documented by: Cyclosporine (Cyclosporine, Modified 25 Mg Capsule) 50 mg PO DAILY [facility] Last Admin: 02/28/21 08:47 Dose: 50 mg Documented by: Cyclosporine (Cyclosporine, Modified 25 Mg Capsule) 75 mg PO HS [facility] Last Admin: 02/27/21 21:03 Dose: 75 mg Documented by: Dextrose (Dextrose 50% 50 Ml Vial) 0 ml IV UD PRN PRN Reason: Hypoglycemia Diagnostic Test (Pha) (Accu-Chek 1 Each Strip) 1 each FS ACHS [facility] Last Admin: 02/28/21 08:31 Dose: 1 each Documented by: Diphenhydramine HCl (Diphenhydramine 50 Mg/Ml Vial) 50 mg IV Q6HP PRN PRN Reason: Anxiety Docusate Sodium (Docusate Sodium 100 Mg Capsule) 100 mg PO BID [facility] Last Admin: 02/28/21 08:45 Dose: 100 mg Documented by: Furosemide (Furosemide 20 Mg/2 Ml Vial) 40 mg IV BIDD [facility] Last Admin: 02/28/21 08:45 Dose: 40 mg Documented by: Glucose (Dextrose 31 Gm Oral.Susp) 15 gm PO PRN PRN PRN Reason: Hypoglycemia Heparin Sodium (Porcine) (Heparin 5,000 Unit/Ml Vial) 5,000 unit SQ Q12 [facility] Last Admin: 02/28/21 08:44 Dose: 5,000 unit Documented by: Insulin Human Lispro (Insulin Lispro 1 Unit/0.01 Ml Unit) 0 unit SQ ACHS [facility]; Protocol Last Admin: 02/28/21 08:32 Dose: Not Given Documented by: Ketorolac Tromethamine (Ketorolac 30 Mg/Ml Vial) 30 mg IV Q6HP PRN PRN Reason: Per Pain Protocol Stop: 03/01/21 13:14 Last Admin: 02/27/21 21:02 Dose: 30 mg Documented by: Lactulose (Lactulose 20 Gm/30 Ml Oral.Hazel) 10 gm PO DAILYP PRN PRN Reason: Constipation Levothyroxine Sodium (Levothyroxine 100 Mcg Tablet) 100 mcg PO ACB [facility] Last Admin: 02/28/21 08:46 Dose: 100 mcg Documented by: Lisinopril (Lisinopril 5 Mg Tablet) 2.5 mg PO DAILY [facility] Last Admin: 02/28/21 08:46 Dose: Not Given Documented by: Meclizine HCl (Meclizine 25 Mg Tablet) 25 mg PO QIDP PRN PRN Reason: Vertigo Ondansetron HCl (Ondansetron 4 Mg/2 Ml Vial) 4 mg IV Q4HP PRN; Protocol PRN Reason: Nausea And Vomiting Pred[facility]one ([facility] 5 Mg [facility]t) [facility] Admin: 02/28/21 08:46 Dose: 5 mg Documented by: Senna (Sennosides 1 Tablet) 2 tab PO HSP PRN PRN Reason: Constipation Sodium Chloride (0.9 % Sodium Chloride 10 Ml Syringe) 10 ml IV Q8 [facility] Last Admin: 02/28/21 05:39 Dose: 10 ml Documented by: A/P Assessment and plan (1) Acute and chronic respiratory failure: Status: Acute (2) Type 2 diabetes mellitus without complications: Status: Chronic (3) Morbid (severe) obesity due to excess calories: Status: Chronic (4) CHF exacerbation: Status: Acute (5) Hyperkalemia: Status: Acute (6) Hypertension: Status: Chronic (7) Gout: Status: Chronic (8) Hypothyroidism: Status: Chronic (9) Obstructive sleep apnea: Status: Chronic (10) ADPKD (autosomal dominant polycystic kidney disease): Status: Chronic Comment: Expected appearance on recent renal ultrasound, nothing to suggest an abscess or infected cyst (11) End stage renal disease: Status: Chronic (12) Gram-positive cocci bacteremia: Status: Acute (13) Delirium: Status: Acute Narrative A/P Narrative: Assessment and Plans: 1. Acute on chronic respiratory failure associated with CHF exacerbation: Stays in inpatient PCU with telemetry Intake and output Daily weigh 2L/day fluid restriction Oxygen therapy titrate to achieve spo2 >=88% Lasix 40mg IV BID Add Albumin to try to shift fluid from extravescular space to intravescular space No beta petrona in face of exacerbation Lisinopril 2.5mg PO daily 2D echocardiogram, normal left ventricular functions with LVEF 77% PT OT evaluation for potential treatment Also cover patient with antibiotics (Rocephin and Zithromax) for community acquired pneumonia given mildly elevated WBC Blood culture growing Coagulase negative staph in one bottle, see #10 cbc w/ auto diff in the morning to trend WBC 2. JUVENTINO: CPAP at night while sleeping Need outpatient sleep study 3. T2DM: HgA1c Hold any oral hypoglycemics SSI AC HS Accu Chek AC HS Hypoglycemia protocol Diabetic diet 4. Essential HTN: Currently soft blood pressure Lasix 40mg IV BID Lisinopril Hold any other antihypertensives 5. Hypothyroidism: Continue thyroid replacement therapy 6. Hyperkalemia: RESOLVED Lasix 40mg IV BID s/p Calcium gluconate IV Insulin as per T2DM management Albuterol INH Repeat CMP in the morning to trend serum potassium level 7. ESRD s/p renal transplant: Avoid nephrotoxic agents Continue post renal transplant medications including CellCept and steroid 8. Morbid obesity: [employer] patient on life style modifications including healthy diet and regular exercise in order to lose weight 9. Gout: Continue Allopurinol 10. Coagulase negative staph bacteremia: DDx: skin contamination Patient is already on Rocephin and Zithromax for coverage of community acquired pneumonia Repeat blood culture X2 on 02/27, no growth to date 11. Delirium: DDx: Hypoxia/hypoxemia from CHF exacerbation, vs hepatic encephalopathy from undiagnosed cirrhosis, vs acute intracranial pathologies Treat CHF exacerbation according to #1 Serum ammonium level within normal limits CT head w/o contrast to rule out acute intracranial pathologies Frequent reorientation during the day and protected sleep time during the night. GI ppx: not currently indicated DVT ppx: Heparin Code status: DNI DNR Prognosis: extremely guarded Disposition: inpatient PCU; PT OT evaluation for placement Time Spent With Patient Time: Total time spent is greater than 50% in coordination of care (as documented) at patient's floor/unit and/or counseling patient: QUALITY VTE Deep Vein Thrombosis/Pulmonary Embolism Present on Admission: No
[2021-02-28] MEDS: KETOROLAC 30 MG/ML VIAL IV PRN ×3 (09:41→20:55)
[2021-02-28] MEDS: LORazepam 2 MG/ML VIAL IV PRN ×2 (13:28→20:58)
[2021-02-28] MEDS: HYDROcodone/APAP 10/325MG TABLET PO PRN (16:28)
[2021-02-28] MEDS: ACETAMINOPHEN 325 MG TABLET PO PRN (19:10)
[2021-03-01] MEDS: 0.9 % SODIUM CHLORIDE 10 ML SYRINGE IV SCH ×3 (05:59→22:03)
[2021-03-01 07:15] LABS: ALT/SGPT < 5 U/L (<40); AST/SGOT 6 U/L (<32); Albumin 2.3 gm/dL (3.2-5.2); Albumin/Globulin Ratio 0.8 (1.0-2.3); Alkaline Phosphatase 77 U/L (39-117); Bilirubin,Total 0.5 mg/dL (0.1-1.0); Blood Urea Nitrogen 52 mg/dL (8-23); Calcium 8.4 mg/dL (8.6-10.4); Carbon Dioxide 27 mmol/L (22-30); Chloride 98 mmol/L (96-108); Glomerular Filtration Rate 35; Glucose 154 mg/dL (70-105)
[2021-03-01 07:17] LABS: Basophils # (Auto) 0.04 K/mcL (0.00-0.30); Basophils % (Auto) 0.5 % (0.0-2.0); Eosinophils # (Auto) 0.18 K/mcL (0.00-0.70); Eosinophils % (Auto) 2.4 % (0.0-7.0); Hematocrit 36.6 % (34.1-44.9); Hemoglobin 10.5 g/dL (11.2-15.7); Lymphocytes # (Auto) 2.24 K/mcL (1.50-4.80); Lymphocytes % (Auto) 30.4 % (15.5-49.0); Mean Cell Volume 92.9 fL (80.0-100.0); Mean Corpuscular HGB Conc 28.7 g/dL (31.0-36.0); Mean Platelet Volume 9.4 fL (7.4-10.4); Monocytes % (Auto) 9.5 % (1.0-12.0); Platelet Count 200 K/mcL (140-440); RBC 3.94 M/mcL (3.59-5.38); Red Cell Distribution Width 15.6 % (11.5-14.5); WBC 7.4 K/mcL (4.5-11.0)
[2021-03-01] MEDS: INSULIN LISPRO 1 UNIT/0.01 ML UNIT SQ SCH ×4 (07:43→22:02)
[2021-03-01] MEDS: predniSONE 5 MG TABLET PO SCH (07:44)
[2021-03-01] MEDS: LEVOTHYROXINE 100 MCG TABLET PO SCH (07:44)
[2021-03-01] MEDS: HEPARIN 5,000 UNIT/ML VIAL SQ SCH ×2 (08:22→22:02)
[2021-03-01] MEDS: DOCUSATE SODIUM 100 MG CAPSULE PO SCH ×2 (08:22→22:02)
[2021-03-01] MEDS: FUROSEMIDE 20 MG/2 ML VIAL IV SCH ×3 (08:22→22:02)
[2021-03-01] MEDS: ALLOPURINOL 100 MG TABLET PO SCH (08:22)
[2021-03-01] MEDS: cefTRIAXone 1 GM VIAL IV SCH (08:23)
[2021-03-01] MEDS: LISINOPRIL 5 MG TABLET PO SCH (08:27)
[2021-03-01] MEDS: CARBOXYMETHYLCELLULOSE SODIUM 1 EACH DROPER.GEL OP SCH ×2 (08:28→22:03)
--- NOTE | 2021-03-01 10:26 | Internal Med Progress Note ---
SUBJECTIVE Subjective Patient information: Note initiated : 03/01/21 at 10:23 am Service Date, if different from initiated Date: [] Patient: Marialuisa Champagne a 71 y/o F admitted on 02/25/21 for shortness of breath, low O2 sats. Chief Complaint: [CHF exacerbation] Interval history: History of present illness: Ms. Champagne is a 71 year old F history of CHF, morbid obesity, type 2 diabetes, end-stage renal disease status post kidney transplant, essential hypertension, gout, hypothyroidism, obstructive sleep apnea, presenting with several day history of shortness of breath and low oxygen saturations. Patient has been told that she would need CPAP for sleep apnea but she never get one. She was at 1 time been told that she does not qualify for home oxygen although he she was also been told that she would probably benefit from it. Anyway, over the past couple of days, her has noticed patient to have increasing lethargy, increasing shortness of breath, as well as low oxygen saturation as read by the oxygen probe at home. As a result, he called EMS to send patients to our ED for further evaluation and treatments. Oxygen saturations was in the 50s when she arrived the ED on room air. She was subsequently been placed on nonrebreather oxygen and eventually been weaned down to 6 L nasal cannula oxygen's. Labs significant for mildly elevated white count at 11.1, potassium 5.4, serum creatinine 1.2, serum troponin 0 0.04 with baseline was 0.03, BNP at 3000. Chest x-ray suggestive of presence of pulmonary edema and CHF. 02/26: Been on 4L/min supplemental oxygen overnight and this morning. Was not no CPAP overnight. Afebrile. Urine output overnight not well documented. Subjective not obtained due to clinical situations. 02/27: Blood culture Gram possitive cocci in one bottle. Currently on 2L/min supplemental oxygen. Afebrile. Urine output overnight not well documented. Subjective not obtained due to clinical situations. 02/28: Blood culture from admission: coagulase negative staph; repeat blood culture no growth. On BiPAP 12/5cmH2O overnighy, currently on nasal cannula oxygen. s/p Jordan catheter insertion yesterday. c/o moderate generalized body pain. c/o moderate SOB. c/o mild anxiety. Denies fever or chills or sweating. 03/01: Blood culture from admission: coagulase negative staph; repeat blood culture no growth. On BiPAP 12/5cmH2O overnight, currently on nasal cannula oxygen. Denies SOB. Denies chest pain. Denies fever, chills, or sweating. Constitutional Vitals: Vital Signs Temp Pulse Resp BP Pulse Ox 36.1 C 89 19 131/48 96 03/01/21 08:02 03/01/21 08:02 03/01/21 08:02 03/01/21 08:02 03/01/21 08:02 Period Temp Pulse Resp BP Sys/Howe Pulse Ox Last 24 Hr 36.1 C-37.4 C 82-101 15-24 101-140/46-101 91-99 Intake and Output 02/28/21 03/01/21 03/01/21 21:59 05:59 13:59 Intake Total 620 0 Output Total 265 875 30 Balance 355 -875 -30 Weight 176 kg Intake & Output: Intake & Output 02/28/21 03/01/21 03/01/21 21:59 05:59 13:59 Intake Total 620 0 Output Total 265 875 30 Balance 355 -875 -30 Weight 176 kg Intake: Nourishment/Supplement quantity 220 (ml) Oral 400 0 Output: Urine Catheter Amount 875 30 Void Amount 265 Other: Meal Dinner Percent of Meal Consumed 25% Feeding Ability Independent Urine Appearance Clear Clear Clear Urine Color Bright Yellow Bright Yellow Bright Yellow Urine Odor Normal General appearance: cooperative, disheveled, morbidly obese and no acute distress Exam: lethargic Head Head exam: Present atraumatic and normocephalic Eye Eye exam: Present EOMI and PERRL ENT ENT exam: Present mucous membranes moist, normal exam and normal external ear exam Additional comments: Nasal cannula in place Neck Neck exam: Present normal inspection; Absent lymphadenopathy, tenderness and thyromegaly Respiratory Respiratory exam: Present decreased breath sounds; Absent accessory muscle use, respiratory distress and wheezes Cardiovascular Cardiovascular exam: Present normal rate and rhythm; Absent JVD GI/Abdominal GI/Abdominal exam: Present normal bowel sounds and soft; Absent organomegaly and tenderness Additional comments: Jordan catheter in place Extremities Exam Extremities exam: Present full ROM, normal capillary refill and normal inspection; Absent tenderness Neurological Exam Neurological exam: Present alert, CN II-XII intact and oriented X3; Absent motor sensory deficit Psychiatric Psychiatric exam: Present normal affect and normal mood; Absent anxious and depressed Skin Skin exam: Present dry and intact OBJ DATA Labs CBC & Chem 7: 03/01/21 05:22 03/01/21 05:22 Labs: Abnormal Lab Results 03/01/21 03/01/21 02/28/21 05:22 05:22 05:20 Hgb 10.5 L Hct MCHC 28.7 L RDW 15.6 H Potassium 5.2 H BUN 52 H 47 H Creatinine 1.5 H 1.8 H Glucose 154 H 149 H Calcium 8.4 L 8.0 L Total Protein 5.3 L 5.2 L Albumin 2.3 L 2.4 L Albumin/Globulin Ratio 0.8 L 0.9 L 02/28/21 02/27/21 02/27/21 05:20 05:17 05:17 Hgb 9.6 L 11.1 L Hct 33.0 L MCHC 29.1 L 27.7 L RDW 15.8 H 15.9 H Potassium BUN 42 H Creatinine 1.4 H Glucose 145 H Calcium 8.3 L Total Protein 5.4 L Albumin 2.2 L Albumin/Globulin Ratio 0.7 L Meds: Medications Acetaminophen (Acetaminophen 325 Mg Tablet) 650 mg PO Q6HP PRN; Protocol PRN Reason: Per Pain Protocol/Fever > 101 Last Admin: 02/28/21 19:10 Dose: 650 mg Documented by: Hydrocodone Bitart/Acetaminophen (Hydrocodone/Apap 10/325mg Tablet) 1 tab PO BIDP PRN; Protocol PRN Reason: Per Pain Protocol Last Admin: 02/28/21 16:28 Dose: 1 tab Documented by: Albuterol Sulfate (Albuterol Sulfate 200 Puff Inhaler) 2 puff INH Q6HP PRN PRN Reason: Shortness Of Breath Albuterol/Ipratropium (Ipratropium/Albuterol 3 Ml Ampul.Neb) 3 ml NEB Q4HRT PRN PRN Reason: Wheezing Allopurinol (Allopurinol 100 Mg Tablet) 100 mg PO DAILY [facility] Last Admin: 03/01/21 08:22 Dose: 100 mg Documented by: Artificial Tears (Carboxymethylcellulose Sodium 1 Each Droper.Gel) 1 each OP BID [facility] Last Admin: 03/01/21 08:28 Dose: 1 each Documented by: Ceftriaxone Sodium (Ceftriaxone 1 Gm Vial) 1 gm IV DAILY [facility] Last Admin: 03/01/21 08:23 Dose: 1 gm Documented by: Cyclosporine (Cyclosporine, Modified 25 Mg Capsule) 50 mg PO DAILY [facility] Last Admin: 03/01/21 08:23 Dose: 50 mg Documented by: Cyclosporine (Cyclosporine, Modified 25 Mg Capsule) 75 mg PO HS [facility] Last Admin: 02/28/21 20:56 Dose: 75 mg Documented by: Dextrose (Dextrose 50% 50 Ml Vial) 0 ml IV UD PRN PRN Reason: Hypoglycemia Diagnostic Test (Pha) (Accu-Chek 1 Each Strip) 1 each FS [facility] Last Admin: 03/01/21 07:43 Dose: 1 each Documented by: Docusate Sodium (Docusate Sodium 100 Mg Capsule) 100 mg PO BID [facility] Last Admin: 03/01/21 08:22 Dose: 100 mg Documented by: Furosemide (Furosemide 20 Mg/2 Ml Vial) 40 mg IV TID [facility] Last Admin: 03/01/21 08:22 Dose: 40 mg Documented by: Glucose (Dextrose 31 Gm Oral.Susp) 15 gm PO PRN PRN PRN Reason: Hypoglycemia Heparin Sodium (Porcine) (Heparin 5,000 Unit/Ml Vial) 5,000 unit SQ Q12 [facility] Last Admin: 03/01/21 08:22 Dose: 5,000 unit Documented by: Insulin Human Lispro (Insulin Lispro 1 Unit/0.01 Ml Unit) 0 unit SQ [facility]; Protocol Last Admin: 03/01/21 07:43 Dose: 3 units Documented by: Ketorolac Tromethamine (Ketorolac 30 Mg/Ml Vial) 30 mg IV Q6HP PRN PRN Reason: Per Pain Protocol Stop: 03/01/21 13:14 Last Admin: 02/28/21 20:55 Dose: 30 mg Documented by: Lactulose (Lactulose 20 Gm/30 Ml Oral.Hazel) 10 gm PO DAILYP PRN PRN Reason: Constipation Levothyroxine Sodium (Levothyroxine 100 Mcg Tablet) 100 mcg PO ACB [facility] Last Admin: 03/01/21 07:44 Dose: 100 mcg Documented by: Lisinopril (Lisinopril 5 Mg Tablet) 2.5 mg PO DAILY [facility] Last Admin: 03/01/21 08:27 Dose: 2.5 mg Documented by: Lorazepam (Lorazepam 2 Mg/Ml Vial) 0.5 - 1 mg IV Q4-6HP PRN PRN Reason: ANXIETY/SEDATION Last Admin: 02/28/21 20:58 Dose: 1 mg Documented by: Meclizine HCl (Meclizine 25 Mg Tablet) 25 mg PO QIDP PRN PRN Reason: Vertigo Ondansetron HCl (Ondansetron 4 Mg/2 Ml Vial) 4 mg IV Q4HP PRN; Protocol PRN Reason: Nausea And Vomiting Prednisone (Prednisone 5 Mg Tablet) 5 mg PO [facility] Last Admin: 03/01/21 07:44 Dose: 5 mg Documented by: Senna (Sennosides 1 Tablet) 2 tab PO HSP PRN PRN Reason: Constipation Sodium Chloride (0.9 % Sodium Chloride 10 Ml Syringe) 10 ml IV Q8 [facility] Last Admin: 03/01/21 05:59 Dose: 10 ml Documented by: A/P Assessment and plan (1) Acute and chronic respiratory failure: Status: Acute (2) Type 2 diabetes mellitus without complications: Status: Chronic (3) Morbid (severe) obesity due to excess calories: Status: Chronic (4) CHF exacerbation: Status: Acute (5) Hyperkalemia: Status: Acute (6) Hypertension: Status: Chronic (7) Gout: Status: Chronic (8) Hypothyroidism: Status: Chronic (9) Obstructive sleep apnea: Status: Chronic (10) ADPKD (autosomal dominant polycystic kidney disease): Status: Chronic Comment: Expected appearance on recent renal ultrasound, nothing to suggest an abscess or infected cyst (11) End stage renal disease: Status: Chronic (12) Gram-positive cocci bacteremia: Status: Acute (13) Delirium: Status: Acute Narrative A/P Narrative: Assessment and Plans: 1. Acute on chronic respiratory failure associated with CHF exacerbation: Stays in inpatient PCU with telemetry Intake and output Daily weigh 2L/day fluid restriction Oxygen therapy titrate to achieve spo2 >=88% Lasix 40mg IV BID Add Albumin to try to shift fluid from extravescular space to intravescular space No beta petrona in face of exacerbation Lisinopril 2.5mg PO daily 2D echocardiogram, normal left ventricular functions with LVEF 77% PT OT evaluation for potential treatment Also cover patient with antibiotics (Rocephin and Zithromax) for community acquired pneumonia given mildly elevated WBC Blood culture growing Coagulase negative staph in one bottle, see #10 cbc w/ auto diff in the morning to trend WBC 2. JUVENTINO: CPAP at night while sleeping Need outpatient sleep study 3. T2DM: HgA1c Hold any oral hypoglycemics SSI AC HS Accu Chek AC HS Hypoglycemia protocol Diabetic diet 4. Essential HTN: Currently soft blood pressure Lasix 40mg IV BID Lisinopril Hold any other antihypertensives 5. Hypothyroidism: Continue thyroid replacement therapy 6. Hyperkalemia: Lasix 40mg IV BID Insulin as per T2DM management Repeat CMP in the morning to trend serum potassium level 7. ESRD s/p renal transplant: Avoid nephrotoxic agents Continue post renal transplant medications including CellCept and steroid 8. Morbid obesity: [employer] patient on life style modifications including healthy diet and regular exercise in order to lose weight 9. Gout: Continue Allopurinol 10. Coagulase negative staph bacteremia: DDx: skin contamination Patient is already on Rocephin and Zithromax for coverage of community acquired pneumonia Repeat blood culture X2 on 02/27, no growth to date 11. Delirium: DDx: Hypoxia/hypoxemia from CHF exacerbation, vs hepatic encephalopathy from undiagnosed cirrhosis, vs acute intracranial pathologies Treat CHF exacerbation according to #1 Serum ammonium level within normal limits CT head w/o contrast to rule out acute intracranial pathologies Frequent reorientation during the day and protected sleep time during the night. GI ppx: not currently indicated DVT ppx: Heparin Code status: DNI DNR Prognosis: guarded Disposition: inpatient PCU; PT OT evaluation for placement Time Spent With Patient Time: Total time spent is greater than 50% in coordination of care (as documented) at patient's floor/unit and/or counseling patient: QUALITY VTE Deep Vein Thrombosis/Pulmonary Embolism Present on Admission: No
[2021-03-01 17:06] LABS: Neutrophils % (Auto) 57.2 % (38.0-78.0)
[2021-03-01] MEDS: ACETAMINOPHEN 325 MG TABLET PO PRN (18:02)
[2021-03-01] MEDS: HYDROcodone/APAP 10/325MG TABLET PO PRN (22:01)
[2021-03-02] MEDS: 0.9 % SODIUM CHLORIDE 10 ML SYRINGE IV SCH ×3 (05:59→20:30)
[2021-03-02 07:24] LABS: Basophils # (Auto) 0.05 K/mcL (0.00-0.30); Basophils % (Auto) 0.6 % (0.0-2.0); Eosinophils # (Auto) 0.17 K/mcL (0.00-0.70); Hematocrit 33.3 % (34.1-44.9); Hemoglobin 9.6 g/dL (11.2-15.7); Lymphocytes # (Auto) 2.59 K/mcL (1.50-4.80); Lymphocytes % (Auto) 30.1 % (15.5-49.0); Mean Cell Volume 90.5 fL (80.0-100.0); Mean Corpuscular HGB Conc 28.8 g/dL (31.0-36.0); Mean Platelet Volume 9.8 fL (7.4-10.4); Monocytes % (Auto) 8.1 % (1.0-12.0); Platelet Count 222 K/mcL (140-440); RBC 3.68 M/mcL (3.59-5.38); Red Cell Distribution Width 15.7 % (11.5-14.5); WBC 8.6 K/mcL (4.5-11.0)
[2021-03-02] MEDS: INSULIN LISPRO 1 UNIT/0.01 ML UNIT SQ SCH ×4 (07:49→20:51)
[2021-03-02 08:12] LABS: ALT/SGPT < 5 U/L (<40); AST/SGOT 8 U/L (<32); Albumin 2.3 gm/dL (3.2-5.2); Albumin/Globulin Ratio 0.8 (1.0-2.3); Alkaline Phosphatase 68 U/L (39-117); Bilirubin,Total 0.4 mg/dL (0.1-1.0); Blood Urea Nitrogen 53 mg/dL (8-23); Calcium 8.4 mg/dL (8.6-10.4); Carbon Dioxide 26 mmol/L (22-30); Chloride 97 mmol/L (96-108); Glomerular Filtration Rate 35; Glucose 136 mg/dL (70-105)
[2021-03-02] MEDS ORDERED: ALBUTEROL SULFATE 5 MG/ML NEB SOLUTION BOTTLE NEB ONE (08:13)
[2021-03-02] MEDS ORDERED: DEXTROSE 50% 50 ML VIAL IV ONE (08:13)
[2021-03-02] MEDS ORDERED: INSULIN REGULAR, HUMAN 1 UNIT/0.01 ML UNIT IV ONE (08:13)
[2021-03-02] MEDS ORDERED: CALCIUM GLUCONATE IV ONE (08:13)
[2021-03-02] MEDS ORDERED: WATER IV ONE (08:13)
[2021-03-02] MEDS ORDERED: SODIUM POLYSTYRENE SULFONATE 15 GM/60 ML SUSPENSION PR ONE (08:13)
[2021-03-02] MEDS ORDERED: DEXTROSE 5% IV ONE (08:13)
[2021-03-02 08:18] LABS: Neutrophils % (Auto) 59.2 % (38.0-78.0)
[2021-03-02] MEDS: FUROSEMIDE 20 MG/2 ML VIAL IV SCH ×3 (08:18→20:30)
--- NOTE | 2021-03-02 08:24 | Internal Med Progress Note ---
SUBJECTIVE Subjective Patient information: Note initiated : 03/02/21 at 8:20 am Service Date, if different from initiated Date: [] Patient: Marialuisa Champagne a 71 y/o F admitted on 02/25/21 for shortness of breath, low O2 sats. Chief Complaint: [] Interval history: History of present illness: Ms. Champagne is a 71 year old F history of CHF, morbid obesity, type 2 diabetes, end-stage renal disease status post kidney transplant, essential hypertension, gout, hypothyroidism, obstructive sleep apnea, presenting with several day history of shortness of breath and low oxygen saturations. Patient has been told that she would need CPAP for sleep apnea but she never get one. She was at 1 time been told that she does not qualify for home oxygen although he she was also been told that she would probably benefit from it. Anyway, over the past couple of days, her has noticed patient to have increasing lethargy, increasing shortness of breath, as well as low oxygen saturation as read by the oxygen probe at home. As a result, he called EMS to send patients to our ED for further evaluation and treatments. Oxygen saturations was in the 50s when she arrived the ED on room air. She was subsequently been placed on nonrebreather oxygen and eventually been weaned down to 6 L nasal cannula oxygen's. Labs significant for mildly elevated white count at 11.1, potassium 5.4, serum creatinine 1.2, serum troponin 0 0.04 with baseline was 0.03, BNP at 3000. Chest x-ray suggestive of presence of pulmonary edema and CHF. 02/26: Been on 4L/min supplemental oxygen overnight and this morning. Was not no CPAP overnight. Afebrile. Urine output overnight not well documented. Subjective not obtained due to clinical situations. 02/27: Blood culture Gram possitive cocci in one bottle. Currently on 2L/min supplemental oxygen. Afebrile. Urine output overnight not well documented. Subjective not obtained due to clinical situations. 02/28: Blood culture from admission: coagulase negative staph; repeat blood culture no growth. On BiPAP 12/5cmH2O overnighy, currently on nasal cannula oxygen. s/p Jordan catheter insertion yesterday. c/o moderate generalized body pain. c/o moderate SOB. c/o mild anxiety. Denies fever or chills or sweating. 03/01: Blood culture from admission: coagulase negative staph; repeat blood culture no growth. On BiPAP 12/5cmH2O overnight, currently on nasal cannula oxygen. Denies SOB. Denies chest pain. Denies fever, chills, or sweating. 03/02: Serum potassium level 6.4 this morning. Been on BiPAP overnight. Blood culture from admission: coagulase negative staph; repeat blood culture no growth. Subjective not obtained due to clinical situations. Constitutional Vitals: Vital Signs Temp Pulse Resp BP Pulse Ox 36.1 C 112 H 19 117/47 98 03/02/21 08:01 03/02/21 08:01 03/02/21 08:01 03/02/21 08:01 03/02/21 08:01 Period Temp Pulse Resp BP Sys/Howe Pulse Ox Last 24 Hr 36.1 C-36.8 C 71-114 14-28 97-118/47-62 92-98 Intake and Output 03/01/21 03/02/21 03/02/21 21:59 05:59 13:59 Intake Total 400 Output Total 399 294 115 Balance 1 -294 -115 Weight 175.631 kg Intake & Output: Intake & Output 03/01/21 03/02/21 03/02/21 21:59 05:59 13:59 Intake Total 400 Output Total 399 294 115 Balance 1 -294 -115 Weight 175.631 kg Intake: Oral 400 Output: Urine Catheter Amount 399 294 115 Other: Meal Dinner Percent of Meal Consumed 25% Feeding Ability Needs Supervision Urine Appearance Sediment Clear Clear Urine Color Dark Yellow Pale Bright Yellow Urine Odor Normal Normal General appearance: cooperative, disheveled and severe distress; no no acute distress Exam: lethargic lethargic Head Head exam: Present atraumatic and normocephalic Eye Eye exam: Present EOMI and PERRL ENT ENT exam: Present mucous membranes moist, normal exam and normal external ear exam Additional comments: BiPAP in place Neck Neck exam: Present normal inspection; Absent lymphadenopathy, tenderness and thyromegaly Respiratory Respiratory exam: Present decreased breath sounds; Absent accessory muscle use, respiratory distress and wheezes Cardiovascular Cardiovascular exam: Present normal rate and rhythm; Absent JVD GI/Abdominal GI/Abdominal exam: Present normal bowel sounds and soft; Absent organomegaly and tenderness Additional comments: Jordan catheter in place Extremities Exam Extremities exam: Present full ROM, normal capillary refill, normal inspection and pedal edema; Absent tenderness Neurological Exam Neurological exam: Present alert, CN II-XII intact and oriented X3; Absent motor sensory deficit Additional comments: lethargic Psychiatric Psychiatric exam: Present normal affect and normal mood; Absent anxious and depressed Skin Skin exam: Present dry and intact Additional comments: multiple exfoliative skin lesions including on the nosebridge OBJ DATA Labs CBC & Chem 7: 03/02/21 05:33 03/02/21 05:33 Labs: Abnormal Lab Results 03/02/21 03/02/21 03/01/21 05:33 05:33 05:22 Hgb 9.6 L Hct 33.3 L MCHC 28.8 L RDW 15.7 H Potassium 6.4 H* 5.2 H BUN 53 H 52 H Creatinine 1.5 H 1.5 H Glucose 136 H 154 H Calcium 8.4 L 8.4 L Total Protein 5.3 L 5.3 L Albumin 2.3 L 2.3 L Albumin/Globulin Ratio 0.8 L 0.8 L 03/01/21 02/28/21 02/28/21 05:22 05:20 05:20 Hgb 10.5 L 9.6 L Hct 33.0 L MCHC 28.7 L 29.1 L RDW 15.6 H 15.8 H Potassium BUN 47 H Creatinine 1.8 H Glucose 149 H Calcium 8.0 L Total Protein 5.2 L Albumin 2.4 L Albumin/Globulin Ratio 0.9 L Meds: Medications Acetaminophen (Acetaminophen 325 Mg Tablet) 650 mg PO Q6HP PRN; Protocol PRN Reason: Per Pain Protocol/Fever > 101 Last Admin: 03/01/21 18:02 Dose: 650 mg Documented by: Hydrocodone Bitart/Acetaminophen (Hydrocodone/Apap 10/325mg Tablet) 1 tab PO BIDP PRN; Protocol PRN Reason: Per Pain Protocol Last Admin: 02/28/21 16:28 Dose: 1 tab Documented by: Albuterol Sulfate (Albuterol Sulfate 200 Puff Inhaler) 2 puff INH Q6HP PRN PRN Reason: Shortness Of Breath Albuterol/Ipratropium (Ipratropium/Albuterol 3 Ml Ampul.Neb) 3 ml NEB Q4HRT PRN PRN Reason: Wheezing Allopurinol (Allopurinol 100 Mg Tablet) 100 mg PO DAILY [facility] Last Admin: 03/01/21 08:22 Dose: 100 mg Documented by: Artificial Tears (Carboxymethylcellulose Sodium 1 Each Droper.Gel) 1 each OP BID [facility] Last Admin: 03/01/21 22:03 Dose: 1 each Documented by: Ceftriaxone Sodium (Ceftriaxone 1 Gm Vial) 1 gm IV DAILY [facility] Last Admin: 03/01/21 08:23 Dose: 1 gm Documented by: Cyclosporine (Cyclosporine, Modified 25 Mg Capsule) 50 mg PO DAILY [facility] Last Admin: 03/01/21 08:23 Dose: 50 mg Documented by: Cyclosporine (Cyclosporine, Modified 25 Mg Capsule) 75 mg PO HS [facility] Last Admin: 03/02/21 00:30 Dose: Not Given Documented by: Dextrose (Dextrose 50% 50 Ml Vial) 0 ml IV UD PRN PRN Reason: Hypoglycemia Diagnostic Test (Pha) (Accu-Chek 1 Each Strip) 1 each FS [facility] Last Admin: 03/02/21 07:49 Dose: 1 each Documented by: Docusate Sodium (Docusate Sodium 100 Mg Capsule) 100 mg PO BID [facility] Last Admin: 03/01/21 22:02 Dose: Not Given Documented by: Furosemide (Furosemide 20 Mg/2 Ml Vial) 40 mg IV TID [facility] Last Admin: 03/02/21 08:18 Dose: 40 mg Documented by: Glucose (Dextrose 31 Gm Oral.Susp) 15 gm PO PRN PRN PRN Reason: Hypoglycemia Heparin Sodium (Porcine) (Heparin 5,000 Unit/Ml Vial) 5,000 unit SQ Q12 [facility] Last Admin: 03/01/21 22:02 Dose: 5,000 unit Documented by: Calcium Gluconate 13.95 meq/ (Dextrose) 130 mls @ 130 mls/hr IV ONCE ONE Stop: 03/02/21 09:12 Insulin Human Lispro (Insulin Lispro 1 Unit/0.01 Ml Unit) 0 unit SQ [facility]; Protocol Last Admin: 03/02/21 07:49 Dose: Not Given Documented by: Lactulose (Lactulose 20 Gm/30 Ml Oral.Hazel) 10 gm PO DAILYP PRN PRN Reason: Constipation Levothyroxine Sodium (Levothyroxine 100 Mcg Tablet) 100 mcg PO ACB [facility] Last Admin: 03/01/21 07:44 Dose: 100 mcg Documented by: Lorazepam (Lorazepam 2 Mg/Ml Vial) 0.5 - 1 mg IV Q4-6HP PRN PRN Reason: ANXIETY/SEDATION Last Admin: 02/28/21 20:58 Dose: 1 mg Documented by: Meclizine HCl (Meclizine 25 Mg Tablet) 25 mg PO QIDP PRN PRN Reason: Vertigo Ondansetron HCl (Ondansetron 4 Mg/2 Ml Vial) 4 mg IV Q4HP PRN; Protocol PRN Reason: Nausea And Vomiting Prednisone (Prednisone 5 Mg Tablet) 5 mg PO [facility] Last Admin: 03/01/21 07:44 Dose: 5 mg Documented by: Senna (Sennosides 1 Tablet) 2 tab PO HSP PRN PRN Reason: Constipation Sodium Chloride (0.9 % Sodium Chloride 10 Ml Syringe) 10 ml IV Q8 [facility] Last Admin: 03/02/21 05:59 Dose: 10 ml Documented by: A/P Assessment and plan (1) Acute and chronic respiratory failure: Status: Acute (2) Type 2 diabetes mellitus without complications: Status: Chronic (3) Morbid (severe) obesity due to excess calories: Status: Chronic (4) CHF exacerbation: Status: Acute (5) Hyperkalemia: Status: Acute (6) Hypertension: Status: Chronic (7) Gout: Status: Chronic (8) Hypothyroidism: Status: Chronic (9) Obstructive sleep apnea: Status: Chronic (10) ADPKD (autosomal dominant polycystic kidney disease): Status: Chronic Comment: Expected appearance on recent renal ultrasound, nothing to suggest an abscess or infected cyst (11) End stage renal disease: Status: Chronic (12) Gram-positive cocci bacteremia: Status: Acute (13) Delirium: Status: Acute Narrative A/P Narrative: Assessment and Plans: 1. Acute on chronic respiratory failure associated with CHF exacerbation: Stays in inpatient PCU with telemetry Intake and output Daily weigh 2L/day fluid restriction Oxygen therapy titrate to achieve spo2 >=88% Lasix 40mg IV BID Add beta petrona when blood pressure could tolerate Hold Lisinopril for now given hyperkalemia 2D echocardiogram, normal left ventricular functions with LVEF 77% PT OT evaluation for potential treatment Also cover patient with antibiotics (Rocephin and Zithromax) for community acquired pneumonia given mildly elevated WBC Blood culture growing Coagulase negative staph in one bottle, see #10 cbc w/ auto diff in the morning to trend WBC 2. JUVENTINO: CPAP at night while sleeping Need outpatient sleep study 3. T2DM: HgA1c Hold any oral hypoglycemics SSI AC HS Accu Chek AC HS Hypoglycemia protocol Diabetic diet 4. Essential HTN: Currently soft blood pressure Lasix 40mg IV BID d/c Lisinopril for now given hyperkalemia Hold any other antihypertensives 5. Hypothyroidism: Continue thyroid replacement therapy 6. Hyperkalemia: Lasix 40mg IV BID Hold Lisinopril Albuterol Calcium gluconate Dextrose with regular insulin Kayexalate Repeat serum potassium level later this morning 7. ESRD s/p renal transplant: Avoid nephrotoxic agents Continue post renal transplant medications including CellCept and steroid 8. 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 Gout: Continue Allopurinol 10. Coagulase negative staph bacteremia: DDx: skin contamination Patient is already on Rocephin and Zithromax for coverage of community acquired pneumonia Repeat blood culture X2 on 02/27, no growth to date 11. Delirium: DDx: Hypoxia/hypoxemia from CHF exacerbation, vs hepatic encephalopathy from undiagnosed cirrhosis, vs acute intracranial pathologies Treat CHF exacerbation according to #1 Serum ammonium level within normal limits CT head w/o contrast to rule out acute intracranial pathologies Frequent reorientation during the day and protected sleep time during the night. GI ppx: not currently indicated DVT ppx: Heparin Code status: DNI DNR Prognosis: guarded Disposition: inpatient PCU; PT OT evaluation for placement Time Spent With Patient Time: Total time spent is greater than 50% in coordination of care (as documented) at patient's floor/unit and/or counseling patient: QUALITY VTE Deep Vein Thrombosis/Pulmonary Embolism Present on Admission: No
[2021-03-02] MEDS: LEVOTHYROXINE 100 MCG TABLET PO SCH (08:28)
[2021-03-02] MEDS: predniSONE 5 MG TABLET PO SCH (08:28)
[2021-03-02] MEDS: DOCUSATE SODIUM 100 MG CAPSULE PO SCH ×2 (09:23→20:30)
[2021-03-02] MEDS: ALLOPURINOL 100 MG TABLET PO SCH (09:24)
[2021-03-02] MEDS: CARBOXYMETHYLCELLULOSE SODIUM 1 EACH DROPER.GEL OP SCH ×2 (09:32→20:30)
[2021-03-02] MEDS: cefTRIAXone 1 GM VIAL IV SCH (09:32)
[2021-03-02] MEDS: HEPARIN 5,000 UNIT/ML VIAL SQ SCH ×2 (09:32→20:30)
[2021-03-02] MEDS: ACETAMINOPHEN 325 MG TABLET PO PRN ×2 (10:44→19:55)
[2021-03-02] MEDS: ALBUMIN HUMAN 25 GM/100 ML BAG IV SCH ×3 (17:55→19:00)
[2021-03-02] MEDS: LORazepam 2 MG/ML VIAL IV PRN (19:42)
[2021-03-02] MEDS: HYDROcodone/APAP 10/325MG TABLET PO PRN (22:00)
[2021-03-03] MEDS: 0.9 % SODIUM CHLORIDE 10 ML SYRINGE IV SCH ×3 (05:57→20:57)
[2021-03-03] MEDS: INSULIN LISPRO 1 UNIT/0.01 ML UNIT SQ SCH ×4 (07:53→20:52)
--- NOTE | 2021-03-03 08:30 | Internal Med Progress Note ---
SUBJECTIVE Subjective Patient information: Note initiated : 03/03/21 at 8:28 am Service Date, if different from initiated Date: [] Patient: Marialuisa Champagne a 71 y/o F admitted on 02/25/21 for shortness of breath, low O2 sats. Chief Complaint: [CHF exacerbation] Interval history: History of present illness: Ms. Champagne is a 71 year old F history of CHF, morbid obesity, type 2 diabetes, end-stage renal disease status post kidney transplant, essential hypertension, gout, hypothyroidism, obstructive sleep apnea, presenting with several day history of shortness of breath and low oxygen saturations. Patient has been told that she would need CPAP for sleep apnea but she never get one. She was at 1 time been told that she does not qualify for home oxygen although he she was also been told that she would probably benefit from it. Anyway, over the past couple of days, her has noticed patient to have increasing lethargy, increasing shortness of breath, as well as low oxygen saturation as read by the oxygen probe at home. As a result, he called EMS to send patients to our ED for further evaluation and treatments. Oxygen saturations was in the 50s when she arrived the ED on room air. She was subsequently been placed on nonrebreather oxygen and eventually been weaned down to 6 L nasal cannula oxygen's. Labs significant for mildly elevated white count at 11.1, potassium 5.4, serum creatinine 1.2, serum troponin 0 0.04 with baseline was 0.03, BNP at 3000. Chest x-ray suggestive of presence of pulmonary edema and CHF. 02/26: Been on 4L/min supplemental oxygen overnight and this morning. Was not no CPAP overnight. Afebrile. Urine output overnight not well documented. Subjective not obtained due to clinical situations. 02/27: Blood culture Gram possitive cocci in one bottle. Currently on 2L/min supplemental oxygen. Afebrile. Urine output overnight not well documented. Subjective not obtained due to clinical situations. 02/28: Blood culture from admission: coagulase negative staph; repeat blood culture no growth. On BiPAP 12/5cmH2O overnighy, currently on nasal cannula oxygen. s/p Jordan catheter insertion yesterday. c/o moderate generalized body pain. c/o moderate SOB. c/o mild anxiety. Denies fever or chills or sweating. 03/01: Blood culture from admission: coagulase negative staph; repeat blood culture no growth. On BiPAP 12/5cmH2O overnight, currently on nasal cannula oxygen. Denies SOB. Denies chest pain. Denies fever, chills, or sweating. 03/02: Serum potassium level 6.4 this morning. Been on BiPAP overnight. Blood culture from admission: coagulase negative staph; repeat blood culture no growth. Subjective not obtained due to clinical situations. 03/03: Serum potassium level pending. Been on nasal cannula only overnight. Blood culture from admission: coagulase negative staph; repeat blood culture: gram positive cocci. Subjective not obtained due to clinical situations. Constitutional Vitals: Vital Signs Temp Pulse Resp BP Pulse Ox 36.6 C 102 H 21 92/48 96 03/03/21 04:01 03/03/21 04:01 03/03/21 04:01 03/03/21 04:01 03/03/21 04:01 Period Temp Pulse Resp BP Sys/Hoew Pulse Ox Last 24 Hr 36.6 C-38.2 C 91-116 14-28 86-130/47-87 93-99 Intake and Output 03/02/21 03/03/21 03/03/21 21:59 05:59 13:59 Intake Total 250 Output Total 270 940 Balance -20 -940 Weight 174.588 kg Intake & Output: Intake & Output 03/02/21 03/03/21 03/03/21 21:59 05:59 13:59 Intake Total 250 Output Total 270 940 Balance -20 -940 Weight 174.588 kg Intake: IV 250 Output: Urine Catheter Amount 270 940 Other: Urine Appearance Sediment Clear Urine Color Dark Yellow Bright Yellow Urine Odor Normal Stool Size Small Stool Color Brown Yellow Stool Consistency Liquid # Bowel Movements 1 # of times incontinent of 1 Bowels General appearance: disheveled and morbidly obese; no cooperative and no no acute distress Exam: lethargic lethargic Head Head exam: Present atraumatic and normocephalic Eye Eye exam: Present EOMI and PERRL ENT ENT exam: Present mucous membranes moist, normal exam and normal external ear exam Additional comments: BiPAP in place Neck Neck exam: Present normal inspection; Absent lymphadenopathy, tenderness and thyromegaly Respiratory Respiratory exam: Present decreased breath sounds; Absent accessory muscle use, respiratory distress and wheezes Cardiovascular Cardiovascular exam: Present normal rate and rhythm; Absent JVD GI/Abdominal GI/Abdominal exam: Present normal bowel sounds and soft; Absent organomegaly and tenderness Additional comments: Jordan catheter in place Extremities Exam Extremities exam: Present full ROM, normal capillary refill and normal inspection; Absent tenderness Neurological Exam Neurological exam: Present alert, CN II-XII intact and oriented X3; Absent motor sensory deficit Psychiatric Psychiatric exam: Present normal affect and normal mood; Absent anxious and depressed Skin Skin exam: Present dry and intact OBJ DATA Labs CBC & Chem 7: 03/02/21 05:33 03/02/21 11:10 Labs: Abnormal Lab Results 03/02/21 03/02/21 03/01/21 05:33 05:33 05:22 Hgb 9.6 L Hct 33.3 L MCHC 28.8 L RDW 15.7 H Potassium 6.4 H* 5.2 H BUN 53 H 52 H Creatinine 1.5 H 1.5 H Glucose 136 H 154 H Calcium 8.4 L 8.4 L Total Protein 5.3 L 5.3 L Albumin 2.3 L 2.3 L Albumin/Globulin Ratio 0.8 L 0.8 L 03/01/21 05:22 Hgb 10.5 L Hct MCHC 28.7 L RDW 15.6 H Potassium BUN Creatinine Glucose Calcium Total Protein Albumin Albumin/Globulin Ratio Meds: Medications Acetaminophen (Acetaminophen 325 Mg Tablet) 650 mg PO Q6HP PRN; Protocol PRN Reason: Per Pain Protocol/Fever > 101 Last Admin: 03/02/21 19:55 Dose: 650 mg Documented by: Hydrocodone Bitart/Acetaminophen (Hydrocodone/Apap 10/325mg Tablet) 1 tab PO BIDP PRN; Protocol PRN Reason: Per Pain Protocol Last Admin: 03/02/21 22:00 Dose: 1 tab Documented by: Albuterol Sulfate (Albuterol Sulfate 200 Puff Inhaler) 2 puff INH Q6HP PRN PRN Reason: Shortness Of Breath Albuterol/Ipratropium (Ipratropium/Albuterol 3 Ml Ampul.Neb) 3 ml NEB Q4HRT PRN PRN Reason: Wheezing Allopurinol (Allopurinol 100 Mg Tablet) 100 mg PO DAILY [facility] Last Admin: 03/02/21 09:24 Dose: Not Given Documented by: Artificial Tears (Carboxymethylcellulose Sodium 1 Each Droper.Gel) 1 each OP BID [facility] Last Admin: 03/02/21 20:30 Dose: 1 each Documented by: Ceftriaxone Sodium (Ceftriaxone 1 Gm Vial) 1 gm IV DAILY [facility] Last Admin: 03/02/21 09:32 Dose: 1 gm Documented by: Cyclosporine (Cyclosporine, Modified 25 Mg Capsule) 50 mg PO DAILY [facility] Last Admin: 03/02/21 09:23 Dose: Not Given Documented by: Cyclosporine (Cyclosporine, Modified 25 Mg Capsule) 75 mg PO HS [facility] Last Admin: 03/02/21 20:33 Dose: 75 mg Documented by: Dextrose (Dextrose 50% 50 Ml Vial) 0 ml IV UD PRN PRN Reason: Hypoglycemia Diagnostic Test (Pha) (Accu-Chek 1 Each Strip) 1 each FS [facility] Last Admin: 03/03/21 07:52 Dose: 1 each Documented by: Docusate Sodium (Docusate Sodium 100 Mg Capsule) 100 mg PO BID [facility] Last Admin: 03/02/21 20:30 Dose: Not Given Documented by: Furosemide (Furosemide 20 Mg/2 Ml Vial) 40 mg IV TID [facility] Last Admin: 03/02/21 20:30 Dose: 40 mg Documented by: Glucose (Dextrose 31 Gm Oral.Susp) 15 gm PO PRN PRN PRN Reason: Hypoglycemia Heparin Sodium (Porcine) (Heparin 5,000 Unit/Ml Vial) 5,000 unit SQ Q12 [facility] Last Admin: 03/02/21 20:30 Dose: 5,000 unit Documented by: Insulin Human Lispro (Insulin Lispro 1 Unit/0.01 Ml Unit) 0 unit SQ [facility]; Protocol Last Admin: 03/03/21 07:53 Dose: Not Given Documented by: Lactulose (Lactulose 20 Gm/30 Ml Oral.Hazel) 10 gm PO DAILYP PRN PRN Reason: Constipation Levothyroxine Sodium (Levothyroxine 100 Mcg Tablet) 100 mcg PO ACB [facility] Last Admin: 03/02/21 08:28 Dose: Not Given Documented by: Lorazepam (Lorazepam 2 Mg/Ml Vial) 0.5 - 1 mg IV Q4-6HP PRN PRN Reason: ANXIETY/SEDATION Last Admin: 03/02/21 19:42 Dose: 1 mg Documented by: Meclizine HCl (Meclizine 25 Mg Tablet) 25 mg PO QIDP PRN PRN Reason: Vertigo Ondansetron HCl (Ondansetron 4 Mg/2 Ml Vial) 4 mg IV Q4HP PRN; Protocol PRN Reason: Nausea And Vomiting Prednisone (Prednisone 5 Mg Tablet) 5 mg PO [facility] Last Admin: 03/02/21 08:28 Dose: Not Given Documented by: Senna (Sennosides 1 Tablet) 2 tab PO HSP PRN PRN Reason: Constipation Sodium Chloride (0.9 % Sodium Chloride 10 Ml Syringe) 10 ml IV Q8 [facility] Last Admin: 03/03/21 05:57 Dose: 10 ml Documented by: A/P Assessment and plan (1) Acute and chronic respiratory failure: Status: Acute (2) Type 2 diabetes mellitus without complications: Status: Chronic (3) Morbid (severe) obesity due to excess calories: Status: Chronic (4) CHF exacerbation: Status: Acute (5) Hyperkalemia: Status: Acute (6) Hypertension: Status: Chronic (7) Gout: Status: Chronic (8) Hypothyroidism: Status: Chronic (9) Obstructive sleep apnea: Status: Chronic (10) ADPKD (autosomal dominant polycystic kidney disease): Status: Chronic Comment: Expected appearance on recent renal ultrasound, nothing to suggest an abscess or infected cyst (11) End stage renal disease: Status: Chronic (12) Gram-positive cocci bacteremia: Status: Acute (13) Delirium: Status: Acute Narrative A/P Narrative: Assessment and Plans: 1. Acute on chronic respiratory failure associated with CHF exacerbation: Stays in inpatient PCU with telemetry Intake and output Daily weigh 2L/day fluid restriction Oxygen therapy titrate to achieve spo2 >=88% Lasix 40mg IV BID Add beta petrona when blood pressure could tolerate Hold Lisinopril for now given hyperkalemia 2D echocardiogram, normal left ventricular functions with LVEF 77% PT OT evaluation for potential treatment Also cover patient with antibiotics (Rocephin and Zithromax) for community acquired pneumonia given mildly elevated WBC Blood culture growing Coagulase negative staph in one bottle, see #10 cbc w/ auto diff in the morning to trend WBC 2. JUVENTINO: CPAP at night while sleeping Need outpatient sleep study 3. T2DM: HgA1c Hold any oral hypoglycemics SSI AC HS Accu Chek AC HS Hypoglycemia protocol Diabetic diet 4. Essential HTN: Currently soft blood pressure Lasix 40mg IV BID d/c Lisinopril for now given hyperkalemia Hold any other antihypertensives 5. Hypothyroidism: Continue thyroid replacement therapy 6. Hyperkalemia: Lasix 40mg IV BID Hold Lisinopril Albuterol Calcium gluconate Dextrose with regular insulin Kayexalate Repeat serum potassium level later this morning 7. ESRD s/p renal transplant: Avoid nephrotoxic agents Continue post renal transplant medications including CellCept and steroid 8. Morbid obesity: Differential Repairer patient on life style modifications including healthy diet and regular exercise in order to lose weight 9. Gout: Continue Allopurinol 10. Coagulase negative staph bacteremia: DDx: skin contamination Patient is already on Rocephin and Zithromax for coverage of community acquired pneumonia Repeat blood culture X2 on 02/27, no growth to date 11. Delirium: DDx: Hypoxia/hypoxemia from CHF exacerbation, vs hepatic encephalopathy from undiagnosed cirrhosis, vs acute intracranial pathologies Treat CHF exacerbation according to #1 Serum ammonium level within normal limits CT head w/o contrast to rule out acute intracranial pathologies Frequent reorientation during the day and protected sleep time during the night. GI ppx: not currently indicated DVT ppx: Heparin Code status: DNI DNR Prognosis: guarded Disposition: inpatient PCU; PT OT evaluation for placement--->SNF Time Spent With Patient Time: Total time spent is greater than 50% in coordination of care (as documented) at patient's floor/unit and/or counseling patient: QUALITY VTE Deep Vein Thrombosis/Pulmonary Embolism Present on Admission: No
[2021-03-03 09:21] LABS: Basophils # (Auto) 0.07 K/mcL (0.00-0.30); Basophils % (Auto) 0.8 % (0.0-2.0); Eosinophils # (Auto) 0.27 K/mcL (0.00-0.70); Eosinophils % (Auto) 3.2 % (0.0-7.0); Hematocrit 35.2 % (34.1-44.9); Hemoglobin 9.9 g/dL (11.2-15.7); Lymphocytes # (Auto) 2.87 K/mcL (1.50-4.80); Lymphocytes % (Auto) 33.6 % (15.5-49.0); Mean Cell Volume 93.1 fL (80.0-100.0); Mean Corpuscular HGB Conc 28.1 g/dL (31.0-36.0); Mean Platelet Volume 9.5 fL (7.4-10.4); Monocytes # (Auto) 0.76 K/mcL (0.10-0.90); Monocytes % (Auto) 8.9 % (1.0-12.0); Neutrophils % (Auto) 53.5 % (38.0-78.0); Platelet Count 203 K/mcL (140-440); RBC 3.78 M/mcL (3.59-5.38); Red Cell Distribution Width 15.9 % (11.5-14.5); WBC 8.6 K/mcL (4.5-11.0)
[2021-03-03 09:23] LABS: ALT/SGPT < 5 U/L (<40); AST/SGOT 8 U/L (<32); Albumin 2.4 gm/dL (3.2-5.2); Albumin/Globulin Ratio 0.8 (1.0-2.3); Alkaline Phosphatase 76 U/L (39-117); Bilirubin,Total 0.5 mg/dL (0.1-1.0); Blood Urea Nitrogen 60 mg/dL (8-23); Calcium 8.6 mg/dL (8.6-10.4); Carbon Dioxide 28 mmol/L (22-30); Chloride 96 mmol/L (96-108); Globulin 2.9 gm/dL (2.2-3.7); Glomerular Filtration Rate 35; Glucose 132 mg/dL (70-105)
[2021-03-03] MEDS: HEPARIN 5,000 UNIT/ML VIAL SQ SCH ×2 (10:19→20:52)
[2021-03-03] MEDS: ALLOPURINOL 100 MG TABLET PO SCH (10:19)
[2021-03-03] MEDS: predniSONE 5 MG TABLET PO SCH (10:19)
[2021-03-03] MEDS: LEVOTHYROXINE 100 MCG TABLET PO SCH (10:19)
[2021-03-03] MEDS: CARBOXYMETHYLCELLULOSE SODIUM 1 EACH DROPER.GEL OP SCH ×2 (10:19→20:57)
[2021-03-03] MEDS: FUROSEMIDE 20 MG/2 ML VIAL IV SCH ×3 (10:19→20:52)
[2021-03-03] MEDS: cefTRIAXone 1 GM VIAL IV SCH (10:19)
[2021-03-03] MEDS: DOCUSATE SODIUM 100 MG CAPSULE PO SCH ×2 (12:11→20:45)
--- NOTE | 2021-03-03 17:28 | Internal Med Progress Note ---
SUBJECTIVE Subjective Patient information: Note initiated : 03/04/21 at 5:22 pm Service Date, if different from initiated Date: [] Patient: Marialuisa Champagne a 71 y/o F admitted on 02/25/21 for shortness of breath, low O2 sats. Chief Complaint: [] Interval history: Ms. Champagne is a 71 year old F history of CHF, morbid obesity, type 2 diabetes, end-stage renal disease status post kidney transplant, essential hypertension, gout, hypothyroidism, obstructive sleep apnea, presenting with several day history of shortness of breath and low oxygen saturations. She was at one time been told that she does not qualify for home oxygen although he she was also been told that she would probably benefit from it. The several days prior to admission her noticed the patient to have increasing lethargy, increasing shortness of breath, as well as low oxygen saturation as read by the oxygen saturation device at home. As a result, he called EMS to send patients to our ED for further evaluation and treatments. Oxygen saturations was in the 50s when she arrived the ED on room air. She was subsequently been placed on nonrebreather oxygen and eventually was weaned down to 6 L nasal cannula oxygen's. Labs significant for mildly elevated white count at 11.1, potassium 5.4, serum creatinine 1.2, serum troponin 0 0.04 with baseline was 0.03, BNP at 3000. Chest x-ray suggestive of presence of pulmonary edema and CHF. 02/26: Been on 4L/min supplemental oxygen overnight and this morning. Was not no CPAP overnight. Afebrile. Urine output overnight not well documented. Subjective not obtained due to clinical situations. 02/27: Blood culture Gram positive cocci in one bottle. Currently on 2L/min supplemental oxygen. Afebrile. Urine output overnight not well documented. Subjective not obtained due to clinical situations. 02/28: Blood culture from admission: coagulase negative staph; repeat blood culture no growth. On BiPAP 12/5cmH2O over night, currently on nasal cannula oxygen. s/p Jordan catheter insertion yesterday. c/o moderate generalized body pain. c/o moderate SOB. c/o mild anxiety. Denies fever or chills or sweating. 03/01: Blood culture from admission: coagulase negative staph; repeat blood culture no growth. On BiPAP 12/5cmH2O overnight, currently on nasal cannula oxygen. Denies SOB. Denies chest pain. Denies fever, chills, or sweating. 03/02: Serum potassium level 6.4 this morning. Been on BiPAP overnight. Blood culture from admission: coagulase negative staph; repeat blood culture no growth. Subjective not obtained due to clinical situations. 03/03: Serum potassium level pending. Been on nasal cannula only overnight. Blood culture from admission: coagulase negative staph; repeat blood culture: gram positive cocci. Subjective not obtained due to clinical situations. Physical Exam Head: Atraumatic, normal inspection. Eyes: normal appearance, no scleral icterus. Neck: full ROM Respiratory: no respiratory distress. Cardiovascular: normal rate and rhythm, S1, S2. GI/Abdominal: soft, nontender, no guarding. Extremities: full range of motion, nontender. Neurological: CN II-XII intact, intact motor, intact sensation. Psychiatric: normal mood. Skin: warm, normal color Constitutional Vitals: Vital Signs Temp Pulse Resp BP Pulse Ox 98.0 F 87 21 130/100 95 03/03/21 16:01 03/03/21 10:02 03/03/21 16:01 03/03/21 16:01 03/03/21 16:01 Period Temp Pulse Resp BP Sys/Howe Pulse Ox Last 24 Hr 97.4 F-100.7 F 84-116 19-28 82-130/41-100 82-99 Intake and Output 03/03/21 03/03/21 03/03/21 05:59 13:59 21:59 Output Total 940 240 Balance -940 -240 Weight 174.588 kg Patient Weight 03/04/21 05:59 Weight 174.588 kg Intake & Output: Intake & Output 03/03/21 03/03/21 03/03/21 05:59 13:59 21:59 Output Total 940 240 Balance -940 -240 Weight 174.588 kg Output: Urine Catheter Amount 940 240 Other: Urine Appearance Clear Urine Color Bright Yellow OBJ DATA Labs CBC & Chem 7: 03/03/21 06:32 03/03/21 06:32 Labs: Abnormal Lab Results 03/03/21 03/03/21 03/02/21 06:32 06:32 05:33 Hgb 9.9 L Hct MCHC 28.1 L RDW 15.9 H Potassium 6.4 H* BUN 60 H 53 H Creatinine 1.5 H 1.5 H Glucose 132 H 136 H Calcium 8.4 L Total Protein 5.3 L 5.3 L Albumin 2.4 L 2.3 L Albumin/Globulin Ratio 0.8 L 0.8 L 03/02/21 03/01/21 03/01/21 05:33 05:22 05:22 Hgb 9.6 L 10.5 L Hct 33.3 L MCHC 28.8 L 28.7 L RDW 15.7 H 15.6 H Potassium 5.2 H BUN 52 H Creatinine 1.5 H Glucose 154 H Calcium 8.4 L Total Protein 5.3 L Albumin 2.3 L Albumin/Globulin Ratio 0.8 L Meds: Medications Acetaminophen (Acetaminophen 325 Mg Tablet) 650 mg PO Q6HP PRN; Protocol PRN Reason: Per Pain Protocol/Fever > 101 Last Admin: 03/02/21 19:55 Dose: 650 mg Documented by: Hydrocodone Bitart/Acetaminophen (Hydrocodone/Apap 10/325mg Tablet) 1 tab PO BIDP PRN; Protocol PRN Reason: Per Pain Protocol Last Admin: 03/02/21 22:00 Dose: 1 tab Documented by: Albuterol Sulfate (Albuterol Sulfate 200 Puff Inhaler) 2 puff INH Q6HP PRN PRN Reason: Shortness Of Breath Albuterol/Ipratropium (Ipratropium/Albuterol 3 Ml Ampul.Neb) 3 ml NEB Q4HRT PRN PRN Reason: Wheezing Allopurinol (Allopurinol 100 Mg Tablet) 100 mg PO DAILY [facility] Last Admin: 03/03/21 10:19 Dose: 100 mg Documented by: Artificial Tears (Carboxymethylcellulose Sodium 1 Each Droper.Gel) 1 each OP BID [facility] Last Admin: 03/03/21 10:19 Dose: 1 each Documented by: Ceftriaxone Sodium (Ceftriaxone 1 Gm Vial) 1 gm IV DAILY [facility] Last Admin: 03/03/21 10:19 Dose: 1 gm Documented by: Cyclosporine (Cyclosporine, Modified 25 Mg Capsule) 50 mg PO DAILY [facility] Last Admin: 03/03/21 10:19 Dose: 50 mg Documented by: Cyclosporine (Cyclosporine, Modified 25 Mg Capsule) 75 mg PO [facility] Last Admin: 03/02/21 20:33 Dose: 75 mg Documented by: Dextrose (Dextrose 50% 50 Ml Vial) 0 ml IV UD PRN PRN Reason: Hypoglycemia Diagnostic Test (Pha) (Accu-Chek 1 Each Strip) 1 each FS [facility] Last Admin: 03/03/21 12:24 Dose: 1 each Documented by: Docusate Sodium (Docusate Sodium 100 Mg Capsule) 100 mg PO BID [facility] Last Admin: 03/03/21 12:11 Dose: Not Given Documented by: Furosemide (Furosemide 20 Mg/2 Ml Vial) 40 mg IV TID [facility] Last Admin: 03/03/21 17:03 Dose: 40 mg Documented by: Glucose (Dextrose 31 Gm Oral.Susp) 15 gm PO PRN PRN PRN Reason: Hypoglycemia Heparin Sodium (Porcine) (Heparin 5,000 Unit/Ml Vial) 5,000 unit SQ Q12 [facility] Last Admin: 03/03/21 10:19 Dose: 5,000 unit Documented by: Insulin Human Lispro (Insulin Lispro 1 Unit/0.01 Ml Unit) 0 unit SQ [facility]; Protocol Last Admin: 03/03/21 12:24 Dose: Not Given Documented by: Lactulose (Lactulose 20 Gm/30 Ml Oral.Hazel) 10 gm PO DAILYP PRN PRN Reason: Constipation Levothyroxine Sodium (Levothyroxine 100 Mcg Tablet) 100 mcg PO ACB [facility] Last Admin: 03/03/21 10:19 Dose: 100 mcg Documented by: Lorazepam (Lorazepam 2 Mg/Ml Vial) 0.5 - 1 mg IV Q4-6HP PRN PRN Reason: ANXIETY/SEDATION Last Admin: 03/02/21 19:42 Dose: 1 mg Documented by: Meclizine HCl (Meclizine 25 Mg Tablet) 25 mg PO QIDP PRN PRN Reason: Vertigo Ondansetron HCl (Ondansetron 4 Mg/2 Ml Vial) 4 mg IV Q4HP PRN; Protocol PRN Reason: Nausea And Vomiting Prednisone (Prednisone 5 Mg Tablet) 5 mg PO QAC [facility] Last Admin: 03/03/21 10:19 Dose: 5 mg Documented by: Senna (Sennosides 1 Tablet) 2 tab PO HSP PRN PRN Reason: Constipation Sodium Chloride (0.9 % Sodium Chloride 10 Ml Syringe) 10 ml IV Q8 [facility] Last Admin: 03/03/21 16:59 Dose: 10 ml Documented by: A/P Narrative A/P Narrative: Assessment: 71 year old F history of CHF, morbid obesity, type 2 diabetes, end-stage renal disease status post kidney transplant, essential hypertension, gout, hypothyroidism, obstructive sleep apnea, presenting with several day history of shortness of breath and low oxygen saturations. The patient was admitted for acute on chronic congestive heart failure. #Acute hypoxic respiratory failure #Acute on chronic diastolic heart failure #Positive blood cultures-suspected skin contaminant #ESRD s/p renal transplant #Type 2 diabetes mellitus #Hypertension #Hypothyroidism #Obstructive sleep apnea #Obesity-BMI 60 Plan -Lasix IV TID. -Monitor renal function and diuresis parameters. -On Ceftriaxone, follow pending blood cultures. -Holding Lisinopril for recent hyperkalemia. -Essential home medications. -SSI-high -CPAP while sleeping. -Sodium and fluid restriction. -Goals of care discussion. -DVT ppx: Heparin SQ -Code status: DNR -Disposition: SNF Time Spent With Patient Time: Total time spent is greater than 50% in coordination of care (as documented) at patient's floor/unit and/or counseling patient: QUALITY VTE Deep Vein Thrombosis/Pulmonary Embolism Present on Admission: No
[2021-03-03] MEDS: HYDROcodone/APAP 10/325MG TABLET PO PRN (21:48)
[2021-03-04] MEDS: 0.9 % SODIUM CHLORIDE 10 ML SYRINGE IV SCH ×3 (06:09→21:33)
[2021-03-04] MEDS: INSULIN LISPRO 1 UNIT/0.01 ML UNIT SQ SCH ×4 (07:07→21:33)
[2021-03-04] MEDS: cefTRIAXone 1 GM VIAL IV SCH (07:52)
[2021-03-04] MEDS: ALLOPURINOL 100 MG TABLET PO SCH (07:52)
[2021-03-04] MEDS: ACETAMINOPHEN 325 MG TABLET PO PRN ×3 (07:52→21:32)
[2021-03-04] MEDS: predniSONE 5 MG TABLET PO SCH (07:52)
[2021-03-04] MEDS: HEPARIN 5,000 UNIT/ML VIAL SQ SCH ×2 (07:52→21:32)
[2021-03-04] MEDS: DOCUSATE SODIUM 100 MG CAPSULE PO SCH ×2 (07:53→21:16)
[2021-03-04] MEDS: FUROSEMIDE 20 MG/2 ML VIAL IV SCH ×3 (07:53→21:31)
[2021-03-04] MEDS: LEVOTHYROXINE 100 MCG TABLET PO SCH (07:58)
[2021-03-04] MEDS: CARBOXYMETHYLCELLULOSE SODIUM 1 EACH DROPER.GEL OP SCH ×2 (11:10→21:33)
[2021-03-04] MEDS: HYDROcodone/APAP 10/325MG TABLET PO PRN (16:03)
[2021-03-05] MEDS: HYDROcodone/APAP 10/325MG TABLET PO PRN ×2 (04:26→12:31)
[2021-03-05] MEDS: 0.9 % SODIUM CHLORIDE 10 ML SYRINGE IV SCH ×3 (05:53→20:55)
[2021-03-05] MEDS: HEPARIN 5,000 UNIT/ML VIAL SQ SCH ×2 (08:24→20:55)
[2021-03-05] MEDS: INSULIN LISPRO 1 UNIT/0.01 ML UNIT SQ SCH ×4 (08:24→20:55)
[2021-03-05] MEDS: predniSONE 5 MG TABLET PO SCH ×2 (08:24→09:00)
[2021-03-05] MEDS: DOCUSATE SODIUM 100 MG CAPSULE PO SCH ×2 (08:24→20:56)
[2021-03-05] MEDS: LEVOTHYROXINE 100 MCG TABLET PO SCH ×2 (08:24→09:00)
[2021-03-05] MEDS: ALLOPURINOL 100 MG TABLET PO SCH (08:24)
[2021-03-05] MEDS: CARBOXYMETHYLCELLULOSE SODIUM 1 EACH DROPER.GEL OP SCH ×2 (08:24→20:55)
[2021-03-05] MEDS: FUROSEMIDE 20 MG/2 ML VIAL IV SCH ×2 (08:25→20:54)
[2021-03-05 09:31] LABS: Albumin 2.3 gm/dL (3.2-5.2); Blood Urea Nitrogen 68 mg/dL (8-23); Calcium 8.6 mg/dL (8.6-10.4); Carbon Dioxide 30 mmol/L (22-30); Chloride 98 mmol/L (96-108); Glomerular Filtration Rate 35; Glucose 132 mg/dL (70-105); Phosphorous 3.5 mg/dL (2.5-4.5)
--- NOTE | 2021-03-05 15:59 | Internal Med Progress Note ---
SUBJECTIVE Subjective Patient information: Note initiated : 03/05/21 at 3:54 pm Service Date, if different from initiated Date: [] Patient: Marialuisa Champagne a 71 y/o F admitted on 02/25/21 for shortness of breath, low O2 sats. Chief Complaint: [] Interval history: Ms. Champagne is a 71 year old F history of CHF, morbid obesity, type 2 diabetes, end-stage renal disease status post kidney transplant, essential hypertension, gout, hypothyroidism, obstructive sleep apnea, presenting with several day history of shortness of breath and low oxygen saturations. She was at one time been told that she does not qualify for home oxygen although he she was also been told that she would probably benefit from it. The several days prior to admission her noticed the patient to have increasing lethargy, increasing shortness of breath, as well as low oxygen saturation as read by the oxygen saturation device at home. As a result, he called EMS to send patients to our ED for further evaluation and treatments. Oxygen saturations was in the 50s when she arrived the ED on room air. She was subsequently been placed on nonrebreather oxygen and eventually was weaned down to 6 L nasal cannula oxygen's. Labs significant for mildly elevated white count at 11.1, potassium 5.4, serum creatinine 1.2, serum troponin 0 0.04 with baseline was 0.03, BNP at 3000. Chest x-ray suggestive of presence of pulmonary edema and CHF. 02/26: Been on 4L/min supplemental oxygen overnight and this morning. Was not no CPAP overnight. Afebrile. Urine output overnight not well documented. Subjective not obtained due to clinical situations. 02/27: Blood culture Gram positive cocci in one bottle. Currently on 2L/min supplemental oxygen. Afebrile. Urine output overnight not well documented. Subjective not obtained due to clinical situations. 02/28: Blood culture from admission: coagulase negative staph; repeat blood culture no growth. On BiPAP 12/5cmH2O over night, currently on nasal cannula oxygen. s/p Jordan catheter insertion yesterday. c/o moderate generalized body pain. c/o moderate SOB. c/o mild anxiety. Denies fever or chills or sweating. 03/01: Blood culture from admission: coagulase negative staph; repeat blood culture no growth. On BiPAP 12/5cmH2O overnight, currently on nasal cannula oxygen. Denies SOB. Denies chest pain. Denies fever, chills, or sweating. 03/02: Serum potassium level 6.4 this morning. Been on BiPAP overnight. Blood culture from admission: coagulase negative staph; repeat blood culture no growth. Subjective not obtained due to clinical situations. 03/03: Serum potassium level pending. Been on nasal cannula only overnight. Blood culture from admission: coagulase negative staph; repeat blood culture: gram positive cocci. Subjective not obtained due to clinical situations. 03/04: Goals of care discussion today, the patient is considering comfort cares but wants to discuss it more with family. 03/05: The patient wants to focus more on pain control and would like to discuss options with hospice. Hospice consulted. Fentanyl IV prn added. Discontinued Rocephin. Decrease Lasix 40 mg IV from TID to BID. Physical Exam Head: Atraumatic, normal inspection. Eyes: normal appearance, no scleral icterus. Neck: full ROM Respiratory: no respiratory distress. Cardiovascular: normal rate and rhythm, S1, S2. GI/Abdominal: soft, nontender, no guarding. Extremities: full range of motion, nontender. Neurological: CN II-XII intact, intact motor, intact sensation. Psychiatric: normal mood. Skin: warm, normal color Constitutional Vitals: Vital Signs Temp Pulse Resp BP Pulse Ox 97.4 F 107 H 16 102/54 97 03/05/21 12:39 03/05/21 15:15 03/05/21 15:15 03/05/21 12:39 03/05/21 15:15 Period Temp Pulse Resp BP Sys/Howe Pulse Ox Last 24 Hr 97.0 F-97.8 F 70-107 14-25 85-128/44-65 85-100 Intake and Output 03/05/21 03/05/21 03/05/21 05:59 13:59 21:59 Intake Total 120 Output Total 120 50 Balance 0 -50 Weight 173.318 kg Intake & Output: Intake & Output 03/05/21 03/05/21 03/05/21 05:59 13:59 21:59 Intake Total 120 Output Total 120 50 Balance 0 -50 Weight 173.318 kg Intake: Nourishment/Supplement quantity 120 (ml) Output: Urine Catheter Amount 120 50 Other: Meal Nourishment/Supplement Nourishment/Supplement name Nephro Urine Appearance Clear Clear Urine Color Dark Yellow Dark Yellow Stool Size Small Stool Color Green Stool Consistency Liquid OBJ DATA Labs CBC & Chem 7: 03/03/21 06:32 03/05/21 08:20 Labs: Abnormal Lab Results 03/05/21 03/03/21 03/03/21 08:20 06:32 06:32 Hgb 9.9 L MCHC 28.1 L RDW 15.9 H BUN 68 H 60 H Creatinine 1.5 H 1.5 H Glucose 132 H 132 H Total Protein 5.3 L Albumin 2.3 L 2.4 L Albumin/Globulin Ratio 0.8 L Meds: Medications Acetaminophen (Acetaminophen 325 Mg Tablet) 650 mg PO Q6HP PRN; Protocol PRN Reason: Per Pain Protocol/Fever > 101 Last Admin: 03/04/21 21:32 Dose: 650 mg Documented by: Hydrocodone Bitart/Acetaminophen (Hydrocodone/Apap 10/325mg Tablet) 1 tab PO BIDP PRN; Protocol PRN Reason: Per Pain Protocol Last Admin: 03/05/21 12:31 Dose: 1 tab Documented by: Albuterol Sulfate (Albuterol Sulfate 200 Puff Inhaler) 2 puff INH Q6HP PRN PRN Reason: Shortness Of Breath Albuterol/Ipratropium (Ipratropium/Albuterol 3 Ml Ampul.Neb) 3 ml NEB Q4HRT PRN PRN Reason: Wheezing Albuterol/Ipratropium (Ipratropium/Albuterol 3 Ml Ampul.Neb) 3 ml NEB Q4HRT [facility] Allopurinol (Allopurinol 100 Mg Tablet) 100 mg PO DAILY [facility] Last Admin: 03/05/21 08:24 Dose: 100 mg Documented by: Artificial Tears (Carboxymethylcellulose Sodium 1 Each Droper.Gel) 1 each OP BID [facility] Last Admin: 03/05/21 08:24 Dose: 1 each Documented by: Cyclosporine (Cyclosporine, Modified 25 Mg Capsule) 50 mg PO DAILY [facility] Last Admin: 03/05/21 08:27 Dose: 50 mg Documented by: Cyclosporine (Cyclosporine, Modified 25 Mg Capsule) 75 mg PO [facility] Last Admin: 03/04/21 21:31 Dose: 75 mg Documented by: Dextrose (Dextrose 50% 50 Ml Vial) 0 ml IV UD PRN PRN Reason: Hypoglycemia Diagnostic Test (Pha) (Accu-Chek 1 Each Strip) 1 each FS [facility] Last Admin: 03/05/21 12:00 Dose: 1 each Documented by: Docusate Sodium (Docusate Sodium 100 Mg Capsule) 100 mg PO BID [facility] Last Admin: 03/05/21 08:24 Dose: Not Given Documented by: Fentanyl (Fentanyl 100 Mcg/2 Ml Vial) 25 mcg IV Q1HP PRN; Protocol PRN Reason: Per Pain Protocol Furosemide (Furosemide 20 Mg/2 Ml Vial) 40 mg IV BID [facility] Glucose (Dextrose 31 Gm Oral.Susp) 15 gm PO PRN PRN PRN Reason: Hypoglycemia Heparin Sodium (Porcine) (Heparin 5,000 Unit/Ml Vial) 5,000 unit SQ Q12 [facility] Last Admin: 03/05/21 08:24 Dose: 5,000 unit Documented by: Insulin Human Lispro (Insulin Lispro 1 Unit/0.01 Ml Unit) 0 unit SQ [facility]; Protocol Last Admin: 03/05/21 12:00 Dose: Not Given Documented by: Lactulose (Lactulose 20 Gm/30 Ml Oral.Hazel) 10 gm PO DAILYP PRN PRN Reason: Constipation Levothyroxine Sodium (Levothyroxine 100 Mcg Tablet) 100 mcg PO ACB [facility] Last Admin: 03/05/21 08:24 Dose: 100 mcg Documented by: Meclizine HCl (Meclizine 25 Mg Tablet) 25 mg PO QIDP PRN PRN Reason: Vertigo Ondansetron HCl (Ondansetron 4 Mg/2 Ml Vial) 4 mg IV Q4HP PRN; Protocol PRN Reason: Nausea And Vomiting Prednisone (Prednisone 5 Mg Tablet) 5 mg PO QAC [facility] Last Admin: 03/05/21 08:24 Dose: 5 mg Documented by: Senna (Sennosides 1 Tablet) 2 tab PO HSP PRN PRN Reason: Constipation Sodium Chloride (0.9 % Sodium Chloride 10 Ml Syringe) 10 ml IV Q8 [facility] Last Admin: 03/05/21 05:53 Dose: 10 ml Documented by: A/P Narrative A/P Narrative: Assessment: 71 year old F history of CHF, morbid obesity, type 2 diabetes, end-stage renal disease status post kidney transplant, essential hypertension, gout, hypothyroidism, obstructive sleep apnea, presenting with several day history of shortness of breath and low oxygen saturations. The patient was admitted for acute on chronic congestive heart failure. #Acute hypoxic respiratory failure #Acute on chronic diastolic heart failure #Positive blood cultures-suspected skin contaminant #ESRD s/p renal transplant #Type 2 diabetes mellitus #Hypertension #Hypothyroidism #Obstructive sleep apnea #Obesity-BMI 60 Plan -Decrease Lasix 40 mg IV from TID to BID. -Discontinued Ceftriaxone. -Oxygen supplementation. -Holding Lisinopril for recent hyperkalemia. -Essential home medications. -SSI-high -CPAP while sleeping. -Sodium and fluid restriction. -Hospice consulted. -BiPAP -DVT ppx: Heparin SQ -Code status: DNR -Disposition: SNF Time Spent With Patient Time: Total time spent is greater than 50% in coordination of care (as documented) at patient's floor/unit and/or counseling patient: QUALITY VTE Deep Vein Thrombosis/Pulmonary Embolism Present on Admission: No
[2021-03-05] MEDS: IPRATROPIUM/ALBUTEROL 3 ML AMPUL.NEB NEB SCH ×3 (16:38→23:23)
[2021-03-05] MEDS: fentaNYL 100 MCG/2 ML VIAL IV PRN (20:55)
[2021-03-06] MEDS: IPRATROPIUM/ALBUTEROL 3 ML AMPUL.NEB NEB SCH ×6 (02:39→22:48)
[2021-03-06] MEDS: 0.9 % SODIUM CHLORIDE 10 ML SYRINGE IV SCH ×2 (06:42→15:31)
[2021-03-06] MEDS: FUROSEMIDE 20 MG/2 ML VIAL IV SCH (08:29)
[2021-03-06] MEDS: INSULIN LISPRO 1 UNIT/0.01 ML UNIT SQ SCH ×3 (08:29→18:05)
[2021-03-06] MEDS: HEPARIN 5,000 UNIT/ML VIAL SQ SCH (08:29)
[2021-03-06] MEDS: CARBOXYMETHYLCELLULOSE SODIUM 1 EACH DROPER.GEL OP SCH (08:30)
[2021-03-06] MEDS: LEVOTHYROXINE 100 MCG TABLET PO SCH (08:30)
[2021-03-06] MEDS: DOCUSATE SODIUM 100 MG CAPSULE PO SCH (08:30)
[2021-03-06] MEDS: ALLOPURINOL 100 MG TABLET PO SCH (08:30)
[2021-03-06] MEDS: predniSONE 5 MG TABLET PO SCH (08:30)
[2021-03-06 08:52] LABS: Basophils # (Auto) 0.06 K/mcL (0.00-0.30); Basophils % (Auto) 0.7 % (0.0-2.0); Eosinophils # (Auto) 0.18 K/mcL (0.00-0.70); Eosinophils % (Auto) 2.2 % (0.0-7.0); Lymphocytes # (Auto) 2.82 K/mcL (1.50-4.80); Lymphocytes % (Auto) 34.9 % (15.5-49.0); Mean Cell Volume 91.5 fL (80.0-100.0); Mean Corpuscular HGB Conc 27.5 g/dL (31.0-36.0); Mean Platelet Volume 9.5 fL (7.4-10.4); Monocytes # (Auto) 0.62 K/mcL (0.10-0.90); Monocytes % (Auto) 7.7 % (1.0-12.0); Neutrophils % (Auto) 54.5 % (38.0-78.0); Platelet Count 280 K/mcL (140-440); RBC 4.37 M/mcL (3.59-5.38); Red Cell Distribution Width 15.8 % (11.5-14.5); WBC 8.1 K/mcL (4.5-11.0)
[2021-03-06 09:17] LABS: Albumin 2.5 gm/dL (3.2-5.2); Blood Urea Nitrogen 68 mg/dL (8-23); Calcium 8.9 mg/dL (8.6-10.4); Carbon Dioxide 25 mmol/L (22-30); Chloride 98 mmol/L (96-108); Glomerular Filtration Rate 38; Glucose 90 mg/dL (70-105); Phosphorous 3.1 mg/dL (2.5-4.5)
[2021-03-06] MEDS: HYDROcodone/APAP 10/325MG TABLET PO PRN (09:58)
[2021-03-06] MEDS: fentaNYL 100 MCG/2 ML VIAL IV PRN (13:38)
[2021-03-06 13:55] LABS: Blood Urea Nitrogen 67 mg/dL (8-23); Calcium 8.3 mg/dL (8.6-10.4); Carbon Dioxide 26 mmol/L (22-30); Chloride 97 mmol/L (96-108); Glomerular Filtration Rate 35; Glucose 113 mg/dL (70-105)
[2021-03-06] MEDS: HYDROmorphone 0.5 MG/0.5 ML SYRINGE SC PRN (14:10)
--- NOTE | 2021-03-06 18:02 | Internal Med Progress Note ---
SUBJECTIVE Subjective Patient information: Note initiated : 03/06/21 at 5:59 pm Service Date, if different from initiated Date: [] Patient: Marialuisa Champagne a 71 y/o F admitted on 02/25/21 for shortness of breath, low O2 sats. Chief Complaint: [] Interval history: Ms. Champagne is a 71 year old F history of CHF, morbid obesity, type 2 diabetes, end-stage renal disease status post kidney transplant, essential hypertension, gout, hypothyroidism, obstructive sleep apnea, presenting with several day history of shortness of breath and low oxygen saturations. She was at one time been told that she does not qualify for home oxygen although he she was also been told that she would probably benefit from it. The several days prior to admission her noticed the patient to have increasing lethargy, increasing shortness of breath, as well as low oxygen saturation as read by the oxygen saturation device at home. As a result, he called EMS to send patients to our ED for further evaluation and treatments. Oxygen saturations was in the 50s when she arrived the ED on room air. She was subsequently been placed on nonrebreather oxygen and eventually was weaned down to 6 L nasal cannula oxygen's. Labs significant for mildly elevated white count at 11.1, potassium 5.4, serum creatinine 1.2, serum troponin 0 0.04 with baseline was 0.03, BNP at 3000. Chest x-ray suggestive of presence of pulmonary edema and CHF. 02/26: Been on 4L/min supplemental oxygen overnight and this morning. Was not no CPAP overnight. Afebrile. Urine output overnight not well documented. Subjective not obtained due to clinical situations. 02/27: Blood culture Gram positive cocci in one bottle. Currently on 2L/min supplemental oxygen. Afebrile. Urine output overnight not well documented. Subjective not obtained due to clinical situations. 02/28: Blood culture from admission: coagulase negative staph; repeat blood culture no growth. On BiPAP 12/5cmH2O over night, currently on nasal cannula oxygen. s/p Jordan catheter insertion yesterday. c/o moderate generalized body pain. c/o moderate SOB. c/o mild anxiety. Denies fever or chills or sweating. 03/01: Blood culture from admission: coagulase negative staph; repeat blood culture no growth. On BiPAP 12/5cmH2O overnight, currently on nasal cannula oxygen. Denies SOB. Denies chest pain. Denies fever, chills, or sweating. 03/02: Serum potassium level 6.4 this morning. Been on BiPAP overnight. Blood culture from admission: coagulase negative staph; repeat blood culture no growth. Subjective not obtained due to clinical situations. 03/03: Serum potassium level pending. Been on nasal cannula only overnight. Blood culture from admission: coagulase negative staph; repeat blood culture: gram positive cocci. Subjective not obtained due to clinical situations. 03/04: Goals of care discussion today, the patient is considering comfort cares but wants to discuss it more with family. 03/05: The patient wants to focus more on pain control and would like to discuss options with hospice. Hospice consulted. Fentanyl IV prn added. Discontinued Rocephin. Decrease Lasix 40 mg IV from TID to BID. 03/06 The plan is to discharge the patient tomorrow to home with hospice. Discontinued pvc monitor, the patient lost the peripheral IV so transitioned to subcutaneous dilaudid for pain control. Physical Exam Head: Atraumatic, normal inspection. Eyes: normal appearance, no scleral icterus. Neck: full ROM Respiratory: no respiratory distress. Cardiovascular: normal rate and rhythm, S1, S2. GI/Abdominal: soft, nontender, no guarding. Extremities: full range of motion, nontender. Neurological: CN II-XII intact, intact motor, intact sensation. Psychiatric: normal mood. Skin: warm, normal color Constitutional Vitals: Vital Signs Temp Pulse Resp BP Pulse Ox 98.7 F 98 H 17 100/63 100 03/06/21 16:01 03/06/21 16:01 03/06/21 16:01 03/06/21 16:01 03/06/21 16:01 Period Temp Pulse Resp BP Sys/Howe Pulse Ox Last 24 Hr 96.5 F-98.7 F 75-100 10-23 77-116/38-71 93-100 Intake and Output 03/06/21 03/06/21 03/06/21 05:59 13:59 21:59 Intake Total 0 Output Total 330 425 Balance -330 -425 Weight 171.2 kg Intake & Output: Intake & Output 03/06/21 03/06/21 03/06/21 05:59 13:59 21:59 Intake Total 0 Output Total 330 425 Balance -330 -425 Weight 171.2 kg Intake: Oral 0 Output: Urine Catheter Amount 330 425 Other: Urine Appearance Clear Clear Uretheral (Jordan) Clear Urine Color Bright Yellow Dark Yellow Uretheral (Jordan) Dark Yellow Stool Size Small Stool Color Brown Green Stool Consistency Liquid Loose OBJ DATA Labs CBC & Chem 7: 03/06/21 05:04 03/06/21 12:41 Labs: Abnormal Lab Results 03/06/21 03/06/21 03/06/21 12:41 05:04 05:03 Hgb 11.0 L MCH 25.2 L MCHC 27.5 L RDW 15.8 H Potassium 5.7 H 5.8 H BUN 67 H 68 H Creatinine 1.5 H 1.4 H Glucose 113 H Calcium 8.3 L Albumin 2.5 L 03/05/21 08:20 Hgb MCH MCHC RDW Potassium BUN 68 H Creatinine 1.5 H Glucose 132 H Calcium Albumin 2.3 L Meds: Medications Acetaminophen (Acetaminophen 325 Mg Tablet) 650 mg PO Q6HP PRN; Protocol PRN Reason: Per Pain Protocol/Fever > 101 Last Admin: 03/04/21 21:32 Dose: 650 mg Documented by: Hydrocodone Bitart/Acetaminophen (Hydrocodone/Apap 10/325mg Tablet) 1 tab PO BIDP PRN; Protocol PRN Reason: Per Pain Protocol Last Admin: 03/05/21 12:31 Dose: 1 tab Documented by: Albuterol Sulfate (Albuterol Sulfate 200 Puff Inhaler) 2 puff INH Q6HP PRN PRN Reason: Shortness Of Breath Albuterol/Ipratropium (Ipratropium/Albuterol 3 Ml Ampul.Neb) 3 ml NEB Q4HRT PRN PRN Reason: Wheezing Albuterol/Ipratropium (Ipratropium/Albuterol 3 Ml Ampul.Neb) 3 ml NEB Q4HRT [facility] Last Admin: 03/06/21 15:31 Dose: Not Given Documented by: Allopurinol (Allopurinol 100 Mg Tablet) 100 mg PO DAILY [facility] Last Admin: 03/06/21 08:30 Dose: 100 mg Documented by: Artificial Tears (Carboxymethylcellulose Sodium 1 Each Droper.Gel) 1 each OP BID [facility] Last Admin: 03/06/21 08:30 Dose: 1 each Documented by: Cyclosporine (Cyclosporine, Modified 25 Mg Capsule) 50 mg PO DAILY [facility] Last Admin: 03/06/21 08:30 Dose: 50 mg Documented by: Cyclosporine (Cyclosporine, Modified 25 Mg Capsule) 75 mg PO HS [facility] Last Admin: 03/05/21 20:54 Dose: 75 mg Documented by: Dextrose (Dextrose 50% 50 Ml Vial) 0 ml IV UD PRN PRN Reason: Hypoglycemia Diagnostic Test (Pha) (Accu-Chek 1 Each Strip) 1 each FS [facility] Last Admin: 03/06/21 11:45 Dose: 1 each Documented by: Docusate Sodium (Docusate Sodium 100 Mg Capsule) 100 mg PO BID [facility] Last Admin: 03/06/21 08:30 Dose: Not Given Documented by: Furosemide (Furosemide 20 Mg/2 Ml Vial) 40 mg IV BID [facility] Last Admin: 03/06/21 08:29 Dose: 40 mg Documented by: Glucose (Dextrose 31 Gm Oral.Susp) 15 gm PO PRN PRN PRN Reason: Hypoglycemia Heparin Sodium (Porcine) (Heparin 5,000 Unit/Ml Vial) 5,000 unit SQ Q12 [facility] Last Admin: 03/06/21 08:29 Dose: 5,000 unit Documented by: Hydromorphone HCl (Hydromorphone 0.5 Mg/0.5 Ml Syringe) 0.5 mg SC Q2HP PRN; Protocol PRN Reason: Per Pain Protocol Last Admin: 03/06/21 14:10 Dose: 0.5 mg Documented by: Insulin Human Lispro (Insulin Lispro 1 Unit/0.01 Ml Unit) 0 unit SQ [facility]; Protocol Last Admin: 03/06/21 13:39 Dose: Not Given Documented by: Lactulose (Lactulose 20 Gm/30 Ml Oral.Hazel) 10 gm PO DAILYP PRN PRN Reason: Constipation Levothyroxine Sodium (Levothyroxine 100 Mcg Tablet) 100 mcg PO ACB [facility] Last Admin: 03/06/21 08:30 Dose: 100 mcg Documented by: Meclizine HCl (Meclizine 25 Mg Tablet) 25 mg PO QIDP PRN PRN Reason: Vertigo Ondansetron HCl (Ondansetron 4 Mg/2 Ml Vial) 4 mg IV Q4HP PRN; Protocol PRN Reason: Nausea And Vomiting Prednisone ([facility] 5 Mg [facility]t) [facility] Admin: 03/06/21 08:30 Dose: 5 mg Documented by: Senna (Sennosides 1 Tablet) 2 tab PO HSP PRN PRN Reason: Constipation Sodium Chloride (0.9 % Sodium Chloride 10 Ml Syringe) 10 ml IV Q8 [facility] Last Admin: 03/06/21 15:31 Dose: 10 ml Documented by: A/P Narrative A/P Narrative: Assessment: 71 year old F history of CHF, morbid obesity, type 2 diabetes, end-stage renal disease status post kidney transplant, essential hypertension, gout, hypothyroidism, obstructive sleep apnea, presenting with several day history of shortness of breath and low oxygen saturations. The patient was admitted for acute on chronic congestive heart failure. #Acute hypoxic respiratory failure #Acute on chronic diastolic heart failure #Positive blood cultures-suspected skin contaminant #ESRD s/p renal transplant #Type 2 diabetes mellitus #Hypertension #Hypothyroidism #Obstructive sleep apnea #Obesity-BMI 60 Plan -Analgesics prn -Oxygen supplementation. -Holding Lisinopril for recent hyperkalemia. -Essential home medications. -SSI-high -Sodium and fluid restriction. -BiPAP as tolerated -DVT ppx: Heparin SQ -Code status: DNR -Disposition: Home with hospice tomorrow Time Spent With Patient Time: Total time spent is greater than 50% in coordination of care (as documented) at patient's floor/unit and/or counseling patient: QUALITY VTE Deep Vein Thrombosis/Pulmonary Embolism Present on Admission: No
[2021-03-07] MEDS: DOCUSATE SODIUM 100 MG CAPSULE PO SCH ×2 (00:23→08:15)
[2021-03-07] MEDS: INSULIN LISPRO 1 UNIT/0.01 ML UNIT SQ SCH ×2 (00:24→08:22)
[2021-03-07] MEDS: FUROSEMIDE 20 MG/2 ML VIAL IV SCH (00:34)
[2021-03-07] MEDS: HEPARIN 5,000 UNIT/ML VIAL SQ SCH (00:34)
[2021-03-07] MEDS: CARBOXYMETHYLCELLULOSE SODIUM 1 EACH DROPER.GEL OP SCH (00:36)
[2021-03-07] MEDS: 0.9 % SODIUM CHLORIDE 10 ML SYRINGE IV SCH ×2 (00:37→04:50)
[2021-03-07] MEDS: HYDROmorphone 0.5 MG/0.5 ML SYRINGE SC PRN (00:53)
[2021-03-07] MEDS: IPRATROPIUM/ALBUTEROL 3 ML AMPUL.NEB NEB SCH ×2 (03:44→07:01)
[2021-03-07] MEDS: ALLOPURINOL 100 MG TABLET PO SCH (08:15)
[2021-03-07] MEDS: predniSONE 5 MG TABLET PO SCH (08:15)
[2021-03-07] MEDS: LEVOTHYROXINE 100 MCG TABLET PO SCH (08:15)
[2021-03-07 08:45] LABS: Albumin 2.2 gm/dL (3.2-5.2); Phosphorous 3.4 mg/dL (2.5-4.5)
[2021-03-07] MEDS ORDERED: LORazepam 1 MG TABLET SL PRN (09:07)
[2021-03-07] MEDS ORDERED: ALBUTEROL SULFATE 2.5 MG/3 ML NEBULIZER NEB PRN (09:07)
[2021-03-07] MEDS ORDERED: ONDANSETRON 4 MG ODT TABLET SL PRN (09:07)
[2021-03-07] MEDS: HYDROmorphone 1 MG/ML SYRINGE SQ PRN ×3 (09:42→14:56)
[2021-03-07] MEDS ORDERED: 0.9 % SODIUM CHLORIDE 10 ML SYRINGE IV SCH (14:00)
--- NOTE | 2021-03-07 14:40 | Internal Med Progress Note ---
SUBJECTIVE Subjective Patient information: Note initiated : 03/07/21 at 2:39 pm Service Date, if different from initiated Date: [] Patient: Marialuisa Champagne a 71 y/o F admitted on 02/25/21 for shortness of breath, low O2 sats. Chief Complaint: [] Interval history: Ms. Champagne is a 71 year old F history of CHF, morbid obesity, type 2 diabetes, end-stage renal disease status post kidney transplant, essential hypertension, gout, hypothyroidism, obstructive sleep apnea, presenting with several day history of shortness of breath and low oxygen saturations. She was at one time been told that she does not qualify for home oxygen although he she was also been told that she would probably benefit from it. The several days prior to admission her noticed the patient to have increasing lethargy, increasing shortness of breath, as well as low oxygen saturation as read by the oxygen saturation device at home. As a result, he called EMS to send patients to our ED for further evaluation and treatments. Oxygen saturations was in the 50s when she arrived the ED on room air. She was subsequently been placed on nonrebreather oxygen and eventually was weaned down to 6 L nasal cannula oxygen's. Labs significant for mildly elevated white count at 11.1, potassium 5.4, serum creatinine 1.2, serum troponin 0 0.04 with baseline was 0.03, BNP at 3000. Chest x-ray suggestive of presence of pulmonary edema and CHF. 02/26: Been on 4L/min supplemental oxygen overnight and this morning. Was not no CPAP overnight. Afebrile. Urine output overnight not well documented. Subjective not obtained due to clinical situations. 02/27: Blood culture Gram positive cocci in one bottle. Currently on 2L/min supplemental oxygen. Afebrile. Urine output overnight not well documented. Subjective not obtained due to clinical situations. 02/28: Blood culture from admission: coagulase negative staph; repeat blood culture no growth. On BiPAP 12/5cmH2O over night, currently on nasal cannula oxygen. s/p Jordan catheter insertion yesterday. c/o moderate generalized body pain. c/o moderate SOB. c/o mild anxiety. Denies fever or chills or sweating. 03/01: Blood culture from admission: coagulase negative staph; repeat blood culture no growth. On BiPAP 12/5cmH2O overnight, currently on nasal cannula oxygen. Denies SOB. Denies chest pain. Denies fever, chills, or sweating. 03/02: Serum potassium level 6.4 this morning. Been on BiPAP overnight. Blood culture from admission: coagulase negative staph; repeat blood culture no growth. Subjective not obtained due to clinical situations. 03/03: Serum potassium level pending. Been on nasal cannula only overnight. Blood culture from admission: coagulase negative staph; repeat blood culture: gram positive cocci. Subjective not obtained due to clinical situations. 03/04: Goals of care discussion today, the patient is considering comfort cares but wants to discuss it more with family. 03/05: The patient wants to focus more on pain control and would like to discuss options with hospice. Hospice consulted. Fentanyl IV prn added. Discontinued Rocephin. Decrease Lasix 40 mg IV from TID to BID. 03/06 The plan is to discharge the patient tomorrow to home with hospice. Discontinued radiation monitor, the patient lost the peripheral IV so transitioned to subcutaneous dilaudid for pain control. 03/07 Transitioned to comfort cares per family's request. Physical Exam Head: Atraumatic, normal inspection. Eyes: normal appearance, no scleral icterus. Neck: full ROM Respiratory: no respiratory distress. Cardiovascular: normal rate and rhythm, S1, S2. GI/Abdominal: soft, nontender, no guarding. Extremities: full range of motion, nontender. Neurological: CN II-XII intact, intact motor, intact sensation. Psychiatric: normal mood. Skin: warm, normal color Constitutional Vitals: Vital Signs Temp Pulse Resp BP Pulse Ox 97.6 F 93 H 24 H 79/54 99 03/07/21 08:02 03/07/21 08:02 03/07/21 08:02 03/07/21 08:02 03/07/21 08:02 Period Temp Pulse Resp BP Sys/Howe Pulse Ox Last 24 Hr 97.6 F-99.0 F 93-110 16-30 67-136/23-125 89-100 Intake and Output 03/07/21 03/07/21 03/07/21 05:59 13:59 21:59 Output Total 725 Balance -725 Intake & Output: Intake & Output 03/07/21 03/07/21 03/07/21 05:59 13:59 21:59 Output Total 725 Balance -725 Output: Urine Catheter Amount 350 Void Amount 375 Other: Urine Appearance Cloudy Urine Color Dark Yellow OBJ DATA Labs CBC & Chem 7: 03/06/21 05:04 03/07/21 05:26 Labs: Abnormal Lab Results 03/07/21 03/06/21 03/06/21 05:26 12:41 05:04 Hgb 11.0 L MCH 25.2 L MCHC 27.5 L RDW 15.8 H Potassium 5.7 H Anion Gap 18.0 H BUN 74 H 67 H Creatinine 1.5 H 1.5 H Glucose 113 H Calcium 8.3 L Albumin 2.2 L 03/06/21 03/05/21 05:03 08:20 Hgb MCH MCHC RDW Potassium 5.8 H Anion Gap BUN 68 H 68 H Creatinine 1.4 H 1.5 H Glucose 132 H Calcium Albumin 2.5 L 2.3 L Meds: Medications Albuterol Sulfate (Albuterol Sulfate 2.5 Mg/3 Ml Nebulizer) 2.5 mg NEB Q2HP PRN PRN Reason: Shortness Of Breath Hydromorphone HCl (Hydromorphone 1 Mg/Ml Syringe) 0.5 - 2 mg SQ Q2HP PRN; Protocol PRN Reason: Per Pain Protocol Last Admin: 03/07/21 12:42 Dose: 2 mg Documented by: Lorazepam (Lorazepam 1 Mg Tablet) 1 mg SL Q30MIN PRN PRN Reason: Anxiety Ondansetron HCl (Ondansetron 4 Mg Odt Tablet) 4 mg SL Q4HP PRN; Protocol PRN Reason: Nausea And Vomiting Sodium Chloride (0.9 % Sodium Chloride 10 Ml Syringe) 10 ml IV Q8 [facility] A/P Narrative A/P Narrative: Assessment: 71 year old F history of CHF, morbid obesity, type 2 diabetes, end-stage renal disease status post kidney transplant, essential hypertension, gout, hypothyroidism, obstructive sleep apnea, presenting with several day history of shortness of breath and low oxygen saturations. The solo ghotra was admitted for acute on chronic congestive heart failure. #End of life care #Acute hypoxic respiratory failure #Acute on chronic diastolic heart failure #Positive blood cultures-suspected skin contaminant #ESRD s/p renal transplant #Type 2 diabetes mellitus #Hypertension #Hypothyroidism #Obstructive sleep apnea #Obesity-BMI 60 Plan -Comfort care Time Spent With Patient Time: Total time spent is greater than 50% in coordination of care (as documented) at patient's floor/unit and/or counseling patient: QUALITY VTE Deep Vein Thrombosis/Pulmonary Embolism Present on Admission: No
--- NOTE | 2021-03-07 16:25 | Death Note ---
Discharge Sum: Prov Provider Patient information: Note initiated : 03/07/21 at 4:23 pm Service Date, if different from initiated Date: [] Patient: Marialuisa Champagne 71 y/o F admitted on 02/25/21 for shortness of breath, low O2 sats. Chief Complaint: [] Primary care physician: Danay Andersen Consults: 02/25/21 Consult to Physician [CONS] Stat Comment: Consulting Provider: Bi Nixon Reason For Exam: Physician to Consult 03/02/21 08:18 Consult to Physician [CONS] Routine Comment: Consulting Provider: Leslye Jaquez Reason For Exam: Physician to Consult Discharge Sum: Diag Contributing Factors (1) Acute and chronic respiratory failure: (2) Type 2 diabetes mellitus without complications: (3) Morbid (severe) obesity due to excess calories: (4) CHF exacerbation: (5) Hyperkalemia: (6) Hypertension: (7) Gout: (8) Hypothyroidism: (9) Obstructive sleep apnea: (10) ADPKD (autosomal dominant polycystic kidney disease): (11) End stage renal disease: (12) Gram-positive cocci bacteremia: (13) Delirium: Discharge Sum: Summary Date and Time Date of admission: 02/25/21 17:37 Summary Details: Ms. Champagne is a 71 year old F history of CHF, morbid obesity, type 2 diabetes, end-stage renal disease status post kidney transplant, essential hypertension, gout, hypothyroidism, obstructive sleep apnea, presenting with several day history of shortness of breath and low oxygen saturations. She was at one time been told that she does not qualify for home oxygen although he she was also been told that she would probably benefit from it. The several days prior to admission her noticed the patient to have increasing lethargy, increasing shortness of breath, as well as low oxygen saturation as read by the oxygen saturation device at home. As a result, he called EMS to send patients to our ED for further evaluation and treatments. Oxygen saturations was in the 50s when she arrived the ED on room air. She was subsequently been placed on nonrebreather oxygen and eventually was weaned down to 6 L nasal cannula oxygen's. Labs significant for mildly elevated white count at 11.1, potassium 5.4, serum creatinine 1.2, serum troponin 0 0.04 with baseline was 0.03, BNP at 3000. Chest x-ray suggestive of presence of pulmonary edema and CHF. 02/26: Been on 4L/min supplemental oxygen overnight and this morning. Was not no CPAP overnight. Afebrile. Urine output overnight not well documented. Subjective not obtained due to clinical situations. 02/27: Blood culture Gram positive cocci in one bottle. Currently on 2L/min supplemental oxygen. Afebrile. Urine output overnight not well documented. Subjective not obtained due to clinical situations. 02/28: Blood culture from admission: coagulase negative staph; repeat blood culture no growth. On BiPAP 12/5cmH2O over night, currently on nasal cannula oxygen. s/p Jordan catheter insertion yesterday. c/o moderate generalized body pain. c/o moderate SOB. c/o mild anxiety. Denies fever or chills or sweating. 03/01: Blood culture from admission: coagulase negative staph; repeat blood culture no growth. On BiPAP 12/5cmH2O overnight, currently on nasal cannula oxygen. Denies SOB. Denies chest pain. Denies fever, chills, or sweating. 03/02: Serum potassium level 6.4 this morning. Been on BiPAP overnight. Blood culture from admission: coagulase negative staph; repeat blood culture no growth. Subjective not obtained due to clinical situations. 03/03: Serum potassium level pending. Been on nasal cannula only overnight. Blood culture from admission: coagulase negative staph; repeat blood culture: gram positive cocci. Subjective not obtained due to clinical situations. 03/04: Goals of care discussion today, the patient is considering comfort cares but wants to discuss it more with family. 03/05: The patient wants to focus more on pain control and would like to discuss options with hospice. Hospice consulted. Fentanyl IV prn added. Discontinued Rocephin. Decrease Lasix 40 mg IV from TID to BID. 03/06 The plan is to discharge the patient tomorrow to home with hospice. Discontinued cardiac nurse specialist, the patient lost the peripheral IV so transitioned to subcutaneous dilaudid for pain control. 03/07 Transitioned to comfort cares per family's request, the patient later that day. Additional Data Confirmation of as documented by pronouncing clinician: no pulse and no respirations Family: at bedside Additional persons at bedside: layla Attending physician: Bi Nixon MD
== END 2021-03-07 20:30 | DRG 189 ==
LOC: ED 12:15 → ICU 17:37
PROVIDERS: ADMIT Internal Medicine; ATTEND Internal Medicine